=== PATIENT | male | born 1940 ===

== ENCOUNTER 2017-10-19 17:47 | Inpatient (IN) | payer MEDICARE, MEDICAID ==
[2017-10-19 17:53] VITALS: BMI 34.2
[2017-10-19] MEDS ORDERED: Iodixanol 320 MG/ML 100 ML BOTTLE IV ONE (18:02)
[2017-10-19 18:19] LABS: BASO % 0.3 % (0.0-2.0); EOS # 0.2 K/uL (0.0-0.7); EOS % 3.5 % (0.0-4.0); LYMPH # 1.4 K/uL (1.0-4.3); LYMPH % 21.4 % (20.0-40.0); MEAN CELL VOLUME 96.9 fL (80.0-94.0); MEAN CORPUSCULAR HEMOGLOBIN 33.4 pg (27.0-31.0); MEAN CORPUSCULAR HGB CONC 34.5 g/dL (33.0-37.0); MEAN PLATELET VOLUME 6.6 fL (7.2-11.7); MONO # 0.8 K/uL (0.0-0.8); MONO % 11.8 % (0.0-10.0); NRBC % 0.1 % (0.0-2.0); RBC 4.18 Mil/uL (4.40-5.90); RED CELL DISTRIBUTION WIDTH 14.8 % (11.5-14.5); WHITE BLOOD COUNT 6.4 K/uL (4.8-10.8)
[2017-10-19 18:26] LABS: INR 1.4
[2017-10-19 18:27] LABS: PROTHROMBIN TIME 14.9 SECONDS (9.7-12.2)
[2017-10-19 18:33] LABS: ALBUMIN 3.8 g/dL (3.5-5.0); ALT/SGPT 7 U/L (21-72); AST/SGOT 16 U/L (17-59); BLOOD UREA NITROGEN 13 mg/dL (9-20); CALCIUM 8.9 mg/dl (8.6-10.4); GFR AFRICAN-AMERICAN > 60; GFR NON-AFRICAN AMERICAN > 60; HDL CHOLESTEROL 34 mg/dL (30-70)
--- NOTE | 2017-10-19 18:38 | C.PDOC ---
History Of Present Illness 77 y/o male brought to ER from [facility] for declining mental status. Patient had left arm weakness a few hours ago. Of note, HPI is limited due to patient's clinical condition. Time Seen by Provider: 10/19/17 17:54 Chief Complaint (Nursing): Weakness/Neurological Deficit History Per: Patient History/Exam Limitations: clinical condition Onset/Duration Of Symptoms: Hrs Current Symptoms Are (Timing): Still Present Severity: Moderate Past Medical History Reviewed: Historical Data, Nursing Documentation, Vital Signs Vital Signs: Last Vital Signs Temp 97.5 F L 10/21/17 07:35 Pulse 60 10/21/17 07:35 Resp 20 10/21/17 07:35 BP 150/65 10/21/17 07:35 Pulse Ox 100 10/21/17 07:35 - Medical History PMH: Asthma, HIV, HTN Surgical History: No Surg Hx Family History: States: No Known Family Hx - Social History Hx Alcohol Use: No Hx Substance Use: No - Immunization History Hx Tetanus Toxoid Vaccination: No (unknown) Hx Influenza Vaccination: No (unknown) Hx Pneumococcal Vaccination: No (unknown) Review Of Systems Review Of Systems: ROS cannot be obtained secondary to pt's inabilty to answer questions. Physical Exam - Physical Exam Appears: No Acute Distress Skin: Normal Color, Warm, Dry Head: Atraumatic, Normacephalic Eye(s): bilateral: Other (pinpoint pupils) Nose: Normal Oral Mucosa: Moist Neck: Supple Chest: Symmetrical Cardiovascular: Rhythm Regular Respiratory: Normal Breath Sounds, No Rales, No Rhonchi, No Wheezing Neurological/Psych: Other (bilateral arms- floppy, moving bilateral legs without purposeful intention) ED Course And Treatment - Laboratory Results Result Diagrams: 10/19/17 18:16 10/19/17 18:16 O2 Sat by Pulse Oximetry: 96 (RA) Pulse Ox Interpretation: Normal - CT Scan/US CT-Head Other Rad Studies (CT/US): Read By Radiologist, Radiology Report Reviewed CT/US Interpretation: IMPRESSION: Questionable acute/ subacute right parietal operculum infarct. Extensive chronic white matter and basal nuclei ischemic disease. Hyperdense lesion in the left posterior temporoparietal region within and/or abutting the posterior margin of the sylvian fissure. Rule out cavernoma. Partially thrombosed aneurysm in this location would be unlikely. . Followup pre and post-contrast MRI of the brain recommended. Note that these findings were discussed with Dr. Sarmiento at approximately 6 20 p.m. with written down and read back verification. Moderate to significant volume loss. Progress Note: Code Stroke called at 16:45. Labs, UA, CXR, and CT- Head ordered. Disposition Doctor Will See Patient In The: Hospital Counseled Patient/Family Regarding: Studies Performed, Diagnosis - Disposition Disposition: HOSPITALIZED Disposition Time: 20:00 Condition: FAIR - Clinical Impression Clinical Impression: Change in mental state - Scribe Statement The provider has reviewed the documentation as recorded by the Scribe Yessica Hodge Provider Attestation: All medical record entries made by the Scribe were at my direction and personally dictated by me. I have reviewed the chart and agree that the record accurately reflects my personal performance of the history, physical exam, medical decision making, and the department course for this patient. I have also personally directed, reviewed, and agree with the discharge instructions and disposition.
--- NOTE | 2017-10-19 18:39 | CT ---
PROCEDURE: CT HEAD WITHOUT CONTRAST. HISTORY: Code Stroke COMPARISON: No prior study available for comparison TECHNIQUE: Axial computed tomography images were obtained through the head/brain without intravenous contrast. Radiation dose: Total exam DLP = 1372.11 mGy-cm. This CT exam was performed using one or more of the following dose reduction techniques: Automated exposure control, adjustment of the mA and/or kV according to patient size, and/or use of iterative reconstruction technique. . FINDINGS: HEMORRHAGE: There is a rounded approximately 14.8 mm x 12 mm hyperdense lesion located in the posterior aspect of the left sylvian fissure which exhibits and small focal area of lower attenuation along its anterior border. Hounsfield units along the more dense component 170s and along the anterior lower attenuation component in the mid 60s. This lesion is of uncertain etiology. Rule out cavernoma with associated microcalcifications excluded. Partially thrombosed aneurysm would be unlikely in this location No significant surrounding edema or mass effect. Recommend pre and post-contrast MRI of the brain for further evaluation. . Note made of a smaller somewhat angular more discrete classic calcification in the right sylvian fissure. BRAIN: There appears to be an acute infarct in the right frontal operculum region extending superiorly and to the subcortical white matter near the vertex. Additionally, moderate to significant diffuse/ confluent chronic white matter ischemic changes are present. . Scattered chronic bilateral basal nuclei lacunar type infarcts also present. . Moderate to significant generalized volume loss. VENTRICLES: No obstructive hydrocephalus. CALVARIUM: Calvarium intact. PARANASAL SINUSES: Unremarkable as visualized. No significant inflammatory changes. MASTOID AIR CELLS: Unremarkable as visualized. No inflammatory changes. OTHER FINDINGS: Changes of bilateral cataract surgery. IMPRESSION: Questionable acute/ subacute right parietal operculum infarct. Extensive chronic white matter and basal nuclei ischemic disease. Hyperdense lesion in the left posterior temporoparietal region within and/or abutting the posterior margin of the sylvian fissure. Rule out cavernoma. Partially thrombosed aneurysm in this location would be unlikely. . Followup pre and post-contrast MRI of the brain recommended. Note that these findings were discussed with Dr. Sarmiento at approximately 6 20 p.m. with written down and read back verification. Moderate to significant volume loss.
[2017-10-19 18:43] LABS: LDL CHOLESTEROL 134 mg/dL (0-129)
[2017-10-19] MEDS: Sodium Chloride 0.9% 1,000 ML IV SCH (18:53)
--- NOTE | 2017-10-19 18:54 | C.PDOC ---
History Of Present Illness 77 y/o male brought to ER from [facility] for declining mental status. Patient had left arm weakness a few hours ago. Of note, HPI is limited due to patient's clinical condition. Time Seen by Provider: 10/19/17 17:54 Chief Complaint (Nursing): Weakness/Neurological Deficit History Per: Patient History/Exam Limitations: clinical condition Onset/Duration Of Symptoms: Hrs Current Symptoms Are (Timing): Still Present Severity: Moderate Past Medical History Reviewed: Historical Data, Nursing Documentation, Vital Signs Vital Signs: Last Vital Signs Temp 97.5 F L 10/21/17 07:35 Pulse 60 10/21/17 07:35 Resp 20 10/21/17 07:35 BP 150/65 10/21/17 07:35 Pulse Ox 96 10/21/17 18:45 - Medical History PMH: Asthma, HIV, HTN Surgical History: No Surg Hx Family History: States: No Known Family Hx - Social History Hx Alcohol Use: No Hx Substance Use: No - Immunization History Hx Tetanus Toxoid Vaccination: No (unknown) Hx Influenza Vaccination: No (unknown) Hx Pneumococcal Vaccination: No (unknown) Review Of Systems Review Of Systems: ROS cannot be obtained secondary to pt's inabilty to answer questions. Physical Exam - Physical Exam Appears: No Acute Distress Skin: Normal Color, Warm, Dry Head: Atraumatic, Normacephalic, Other (no facial droop) Eye(s): bilateral: Other (pinpoint pupils) Nose: Normal Oral Mucosa: Moist Neck: Supple Chest: Symmetrical Cardiovascular: Rhythm Regular Respiratory: Normal Breath Sounds, No Rales, No Rhonchi, No Wheezing Neurological/Psych: Other (bilateral arms- floppy, bilateral legs moving without purposeful intention) ED Course And Treatment - Laboratory Results Result Diagrams: 10/19/17 18:16 10/19/17 18:16 ECG: Interpreted By Me ECG Rhythm: V Paced ECG Interpretation: Normal Rate From EC O2 Sat by Pulse Oximetry: 96 Pulse Ox Interpretation: Normal - Radiology CXR: Interpreted by Me CXR Interpretation: Yes: No Acute Disease - Other Rad CXR X-Ray: Viewed By Me, Read By Radiologist Interpretation: HISTORY: Code Stroke. COMPARISON: No prior. FINDINGS: LUNGS : No active pulmonary disease. PLEURA: No significant pleural effusion identified, no pneumothorax apparent. CARDIOVASCULAR: Cardiomegaly. No evidence of acute, significant cardiovascular disease. Position/ configuration of pacemaker\AICD device: Satisfactory. OSSEOUS STRUCTURES: No significant abnormalities. VISUALIZED UPPER ABDOMEN: Normal. OTHER FINDINGS: None. IMPRESSION: No active disease. - CT Scan/US CT-Head Other Rad Studies (CT/US): Read By Radiologist, Radiology Report Reviewed CT/US Interpretation: IMPRESSION: Questionable acute/ subacute right parietal operculum infarct. Extensive chronic white matter and basal nuclei ischemic disease. Hyperdense lesion in the left posterior temporoparietal region within and/or abutting the posterior margin of the sylvian fissure. Rule out cavernoma. Partially thrombosed aneurysm in this location would be unlikely. . Followup pre and post-contrast MRI of the brain recommended. Note that these findings were discussed with Dr. Sarmiento at approximately 6 20 p.m. with written down and read back verification. Moderate to significant volume loss. Progress Note: Code Stroke called at 16:45. Labs, UA, CXR, and CT- Head ordered. 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 NIHSS Stroke Scale 2 - Date/Time Evaluation Performed Date Performed: 10/19/17 Time Performed: 17:45 When Was NIHSS Performed: Code Stroke - How Severe is the Stroke Level of Consciousness: 2=Obtunded LOC to Questions: 2=Neither correct LOC to commands: 2=Neither correct Visual: 0=No visual loss Facial: 0=Normal Motor Arm - Left: 4=No movement Motor Arm - Right: 2=Falls before 10 sec Motor Leg - Left: 2=Falls before 5 sec Motor Leg - Right: 0=No drift Limb Ataxia: 0=Absent Sensory: 0=Normal Best Language: 3=Mute Dysarthia: 2=Severe, near unintelligible or worse Extinction & Inattention (Neglect): 0=Normal, no object Severity Of Stroke: 16-20 = Moderate/Severe Stroke rTPA Inclusion/Exclusion - Refusal of Treatment Patient Refused Treatment: No - Inclusion Criteria for Altepase Patient is 18 years or Older: Yes The Clinical Diagnosis of Ischemic Stroke That is Causing a Potentially Disabling Neurological Deficit: Yes Time of Onset is Well Established to be Less Than 270 Minute Before Treatment Would Begin: No Risk/Benefit Discussed With Patient/Family Member Present: No - Exclusion Criteria for Altepase Uncontrolled Hypertension at Time of Treatment (Systolic BP above 185 or Diastolic BP above 110 mmHg): No Known Bleeding Diathesis Including but Not Limited to: Platelets Below 100,000/ mm,PTT Above 40 sec After Heparin Use, Current Use of Oral Anitcoagulant With INR Greater Than 1.7 or PT Greater Than 15 secs: No Evidence of Major Acute Infarct With Signs Greater Than 1/3 MCA Territory: No Suspicion of Subarachnoid Hemorrhage on Pretreatment Evaluation Even if CT Head Negative For Hemorrhage: No - Warning to TPA With Conditions Condition: Rapid Improvement, Age Greater Than 75 years Disposition Doctor Will See Patient In The: Hospital Counseled Patient/Family Regarding: Studies Performed, Diagnosis - Disposition Disposition: HOSPITALIZED Disposition Time: 19:05 Condition: FAIR - POA Core Measure Indicators: Code Stroke - Clinical Impression Clinical Impression: Change in mental state
--- NOTE | 2017-10-19 18:55 | RAD ---
HISTORY: Code Stroke COMPARISON: No prior. FINDINGS: LUNGS: No active pulmonary disease. PLEURA: No significant pleural effusion identified, no pneumothorax apparent. CARDIOVASCULAR: Cardiomegaly. No evidence of acute, significant cardiovascular disease. Position/ configuration of pacemaker Satisfactory. OSSEOUS STRUCTURES: No significant abnormalities. VISUALIZED UPPER ABDOMEN: Normal. OTHER FINDINGS: None. IMPRESSION: No active disease.
--- NOTE | 2017-10-19 19:02 | CT ---
PROCEDURE: CT Angiography of the neck and brain 10/19/2017 HISTORY: Change of MS, ? L arm weak COMPARISON: Comparison made with noncontrast CT scan brain obtained earlier same day. TECHNIQUE: Contiguous axial images of the neck and brain were obtained from the level of the skull-base to the superior mediastinum in the arteriographic phase of enhancement. Coronal and sagittal reformats or also generated. IV contrast dose: 100 cc Visipaque 320 Radiation Dose - DLP: 587.02 mGy-cm This CT exam was performed using one or more of the following dose reduction techniques: Automated exposure control, adjustment of the mA and/or kV according to patient size, and/or use of iterative reconstruction technique. FINDINGS: There are partially calcified atherosclerotic plaque changes along the aortic arch as well as the origins of the great vessels. There is a three-vessel arch. Apparent stent graft within the proximal left subclavian artery. There also partially calcified atherosclerotic plaque changes seen arising from the origins of the great vessels. . Both common carotid arteries are patent. Fairly significant atherosclerotic plaque changes both carotid bifurcations right greater than left with significant stenosis some on the right side and moderate to significant stenosis on the left. Follow-up carotid Doppler could be performed. The internal carotid arteries including the petrous cavernous and supraclinoid segments are patent though there are some minor partially calcified atherosclerotic plaque changes seen along both cavernous carotid arteries. The vertebral arteries are patent throughout left-sided which is slightly larger in caliber/ more dominant than the right. The major branches of the [place] are patent without evidence of large aneurysm nor vascular malformation. The distal anterior middle as well as posterior cerebral artery branches are symmetric. The previously noted hyperdense lesion in the left temporoparietal watershed zone is again noted . Followup pre and post-contrast MRI of the brain recommended. IMPRESSION: Significant stenosis right carotid bifurcation/ internal carotid artery and moderate to significant stenosis left carotid bifurcation/ proximal internal carotid artery. No evidence of occlusion or dissection. No evidence of large aneurysm nor vascular malformation.
[2017-10-19] MEDS ORDERED: Albuterol-Ipratrop 3 mg / 0.5 (3 ml) UD IH SCH (20:45)
[2017-10-19] MEDS ORDERED: Tears Naturale Forte (15ml) OU PRN (21:15)
[2017-10-20] MEDS: Albuterol-Ipratrop 3 mg / 0.5 (3 ml) UD IH SCH ×5 (01:16→20:24)
[2017-10-20 07:42] LABS: SQUAMOUS EPITHIAL < 1 /hpf (0-5); URINE BILIRUBIN NEGATIVE (NEGATIVE); URINE BLOOD NEGATIVE (NEGATIVE); URINE CLARITY Clear (Clear); URINE COLOR Yellow (YELLOW); URINE GLUCOSE (UA) NORMAL (Normal); URINE LEUKOCYTE ESTERASE NEG Leu/uL (Negative); URINE PROTEIN NEGATIVE (NEGATIVE); URINE UROBILINOGEN NORMAL mg/dL (0.2-1.0)
[2017-10-20] MEDS: Sodium Chloride 0.9% 1,000 ML IV SCH ×2 (08:58→14:36)
--- NOTE | 2017-10-20 12:42 | CARD ---
APPROVED REPORT EKG Measurement Heart [id number] <Conclusion> Ventricular-paced rhythm Abnormal ECG
[2017-10-20] MEDS: Budesonide 0.5 mg/2 ml Inhal Susp UD IH SCH ×2 (13:25→20:24)
--- NOTE | 2017-10-20 17:12 | CT ---
PROCEDURE: CT HEAD WITHOUT CONTRAST. HISTORY: repeat; infarct seen on ct head 10/19/17 COMPARISON: None available. TECHNIQUE: Axial computed tomography images were obtained through the head/brain without intravenous contrast. Radiation dose: Total exam DLP = 2503.85 mGy-cm. This CT exam was performed using one or more of the following dose reduction techniques: Automated exposure control, adjustment of the mA and/or kV according to patient size, and/or use of iterative reconstruction technique. FINDINGS: HEMORRHAGE: No intracranial hemorrhage. BRAIN: No intracranial mass. There is a dense rounded calcification adjacent to the atrium of left lateral ventricle unchanged from prior examination. There is a subacute right frontal infarct, slightly diminished in attenuation compared to the prior examination. No evidence of acute hemorrhage. There is a small cortical calcification in the region of the infarcted cerebrum. There is no other acute infarct appreciated. Small old bilateral basal ganglia lacunar infarcts are noted. There is moderate chronic periventricular and deep white matter ischemic change. Old right thalamic lacunar infarcts are noted. Small old left cerebellar hemispheric lacunar infarct. VENTRICLES: Unremarkable. No hydrocephalus. CALVARIUM: Unremarkable. PARANASAL SINUSES: Unremarkable as visualized. No significant inflammatory changes. MASTOID AIR CELLS: Unremarkable as visualized. No inflammatory changes. OTHER FINDINGS: None. IMPRESSION: Subacute right frontal infarct in the MCA territory. Old bilateral basal ganglia, splenic and left cerebellar hemispheric lacunar infarcts. Moderate chronic white matter ischemic change. Dense rounded calcification adjacent to the atrium of the left lateral ventricle of uncertain significance. No acute intracranial hemorrhage.
[2017-10-20] MEDS ORDERED: RALTEGRAVIR POTASSIUM 400 MG PO SCH (18:00)
--- NOTE | 2017-10-20 18:36 | CARD ---
APPROVED REPORT EXAM: Two-dimensional and M-mode echocardiogram with Doppler and color Doppler. INDICATION CVA/TIA Acute Stroke/ HIV RISK FACTORS Hypertension 2D DIMENSIONS IVSd1.1 (0.7-1.1cm)LVDd4.6 (3.9-5.9cm) LVOT Diameter2.3 (1.8-2.4cm)PWd1.3 (0.7-1.1cm) LVDs3.1 (2.5-4.0cm)FS (%) 32.4 % LVEF (%)60.7 (>50%) M-Mode DIMENSIONS Left Atrium (MM)5.30 (2.5-4.0cm)Aortic Root3.87 (2.2-3.7cm) Aortic Cusp Exc.0.67 (1.5-2.0cm) Aortic Valve AoV Peak Amrzesqm380.0cm/sAoV VTI63.8cmAO Peak GR.31mmHg LVOT Peak Xsxngcgb86.0cm/sLVOT VTI20.03cmAO Mean GR.20mmHg DOUG (VMAX)1.69am3OMX (VTI)1.30cm2 Mitral Valve MV E Avlvtlxw904.2cm/sE/A ratio0.0 TDI E/Lateral E'0.0E/Medial E'0.0 Tricuspid Valve TR Peak Xzywknay423jz/sTR Peak Gr.48bkMdWOJP25nhKb LEFT VENTRICLE The left ventricle is normal size. There is borderline concentric left ventricular hypertrophy. Left ventricle systolic function is normal. The Ejection Fraction is 65-70%. There is normal LV segmental wall motion. A Fib There is no ventricular septal defect visualized. RIGHT VENTRICLE The right ventricle is normal size. The right ventricular systolic function is normal. ATRIA The left atrium is mildly dilated. The right atrium is moderately dilated. AORTIC VALVE The aortic valve is moderately to severely sclerotic. The aortic valve is tri-cuspid. No aortic regurgitation is present. There is mild to moderate valvular aortic stenosis. Calculated aortic valve area is 1.3 cm2 with maximum pressure gradient of 36 mmHg MITRAL VALVE Mitral annular calcification is mild. There is no evidence of mitral valve prolapse. Mitral regurgitation is trace. TRICUSPID VALVE The tricuspid valve is normal in structure. There is trace to mild tricuspid regurgitation. Right ventricular systolic pressure is estimated at 30-40 mmHg. There is mild pulmonary hypertension. PULMONIC VALVE The pulmonic valve is not well visualized. There is trace pulmonic valvular regurgitation. GREAT VESSELS The aortic root is normal in size. The ascending aorta is normal in size. The IVC is dilated. PERICARDIAL EFFUSION There is no pericardial effusion. <Conclusion> There is borderline concentric left ventricular hypertrophy. Left ventricle systolic function is normal. The Ejection Fraction is 65-70%. There is mild to moderate valvular aortic stenosis. There is mild pulmonary hypertension.
--- NOTE | 2017-10-20 19:49 | CP.PCM.CON ---
History of Present Illness - History of Present Illness History of Present Illness: Mr. Aj is a 77-year-old left-handed man with a past medical history of HTN, CHF, pacemaker, DM, who is a half-way patient, and was doing well the previous night, but was found in the morning to be lethargic, confused and had some left side weakness. He was later noted by his son and daughter to be weaker on the left and non-verbal. He was brought to the ED and left side weakness and aphasia. However, he was well outside the 4.5 hour time window for IV tPA. CT of the head without contrast showed a right frontal lobe hypodensity consistent with a subacute infarct (watershed zone). CTA of the head/neck showed bilateral ICA stenosis, but more severe on the right side. Today, the patient does move his left leg, but there is not much movement of the left arm, he is dysarthric and aphasic with an NIHSS of 14. Review of Systems - Review of Systems All systems: reviewed and no additional remarkable complaints except Past Patient History - Past Medical History & Family History Past Medical History?: Yes - Past Social History Smoking Status: Never Smoked - CARDIAC Hx Hypertension: Yes - PULMONARY Hx Asthma: Yes - NEUROLOGICAL Hx Neurological Disorder: Yes Hx Transient Ischemic Attacks (TIA): Yes - HEENT Hx HEENT Problems: No - RENAL Hx Chronic Kidney Disease: No - ENDOCRINE/METABOLIC Hx Endocrine Disorders: Yes Hx Diabetes Mellitus Type 2: Yes - HEMATOLOGICAL/ONCOLOGICAL Hx Blood Disorders: Yes Hx Human Immunodeficiency Virus (HIV): Yes - INTEGUMENTARY Hx Dermatological Problems: No - MUSCULOSKELETAL/RHEUMATOLOGICAL Hx Musculoskeletal Disorders: No Hx Falls: No - GASTROINTESTINAL Hx Gastrointestinal Disorders: No - GENITOURINARY/GYNECOLOGICAL Hx Genitourinary Disorders: No - PSYCHIATRIC Hx Psychophysiologic Disorder: No Hx Substance Use: No - ANESTHESIA Hx Anesthesia: No Meds Allergies/Adverse Reactions: Allergies Allergy/AdvReac Type Severity Reaction Status Date / Time No Known Allergies Allergy Verified 10/19/17 17:52 - Medications Medications: Current Medications Albuterol/Ipratropium (Duoneb 3 Mg/0.5 Mg (3 Ml) Ud) 3 ml IH RQ6 [facility] Last Admin: 10/20/17 13:25 Dose: 3 ml Aspirin (Aspirin Supp) 300 mg MO DAILY [facility] Last Admin: 10/20/17 10:23 Dose: 300 mg Budesonide (Pulmicort Respules) 0.5 mg IH RBID [facility] Last Admin: 10/20/17 13:25 Dose: 0.5 mg Docusate Sodium (Colace) 100 mg PO BID [facility] Last Admin: 10/20/17 19:00 Dose: 100 mg Home Med (Emtricitabine/Tenofov Alafenam [Descovy 200-25 Mg Tablet]) 1 each PO DAILY [facility] Home Med (Raltegravir Potassium [Isentress]) 400 mg PO BID [facility] Home Med (Rilpivirine Hcl [Edurant]) 25 mg PO DAILY [facility] Hypromellose (Tears Naturale Forte) 0 ml OU Q6H PRN Sodium Chloride (Sodium Chloride 0.9%) 1,000 mls @ 100 mls/hr IV .Q10H [facility] Last Admin: 10/20/17 14:36 Dose: Not Given Pantoprazole Sodium (Protonix Inj) 40 mg IVP DAILY [facility] Last Admin: 10/20/17 10:22 Dose: 40 mg Pneumococcal Polyvalent Vaccine (Pneumovax 23 Vaccine) 0.5 ml IM .ONCE ONE Stop: 10/21/17 10:01 Physical Exam - Constitutional Appears: Confused - Neurological Exam Neurological exam: Alert, Altered, CN II-XII Intact Additional comments: Aphasic and dysarthric. CN 2-12 normal, Left facial droop, left side weakness with LUE of 2/5 and LLE 3/5, sensation is decreased on the left side as compared with the right. Reflexes are brisk on the left with upgoing plantar response. NIHSS = 14 Results - Vital Signs Recent Vital Signs: Last Vital Signs Temp 97.7 F 10/20/17 15:07 Pulse 60 10/20/17 15:07 Resp 20 10/20/17 15:07 BP 126/66 10/20/17 15:07 Pulse Ox 100 10/20/17 15:07 - Labs Result Diagrams: 10/19/17 18:16 10/19/17 18:16 Labs: Laboratory Results - last 24 hr 10/19/17 10/19/17 10/20/17 07:22 22:33 06:36 POC Glucose (mg/dL) 134 H 133 H Vitamin B12 25-OH Vitamin D Total Urine Color Yellow Urine Clarity Clear Urine pH 6.0 Ur Specific [place] 1.031 H Urine Protein Negative Urine Glucose (UA) Normal Urine Ketones 1+ H Urine Blood Negative Urine Nitrate Negative Urine Bilirubin Negative Urine Urobilinogen Normal Ur Leukocyte Esterase Neg Urine WBC (Auto) 1 Urine RBC (Auto) < 1 Ur Squamous Epith Cells < 1 10/20/17 10/20/17 10/20/17 11:24 11:24 19:26 POC Glucose (mg/dL) 211 H Vitamin B12 403 25-OH Vitamin D Total 18.9 L Urine Color Urine Clarity Urine pH Ur Specific [place] Urine Protein Urine Glucose (UA) Urine Ketones Urine Blood Urine Nitrate Urine Bilirubin Urine Urobilinogen Ur Leukocyte Esterase Urine WBC (Auto) Urine RBC (Auto) Ur Squamous Epith Cells Assessment & Plan (1) Ischemic stroke Assessment and Plan: Likely due to dehydration and severe PADMINI stenosis. I recommend the followin. Telemetry 2. Carotid doppler ultrasound, will obtain neurointerventional consult for ALLIE. 3. Echocardiogram 4. Fluids with NS at 100 mL/hr 5. Aspirin 300 mg MO daily, if unable to swallow Apirin 81 mg and Plavix 75 mg daily. 6. Lipitor 80 mg daily 7. PT/OT/ST eval and treatment 8. DVT Px 9. Case management consult Thank you for this consultation. Status: Acute Priority: High
[2017-10-21] MEDS: Albuterol-Ipratrop 3 mg / 0.5 (3 ml) UD IH SCH ×4 (01:22→19:51)
[2017-10-21 07:38] LABS: IRON 24 ug/dL (49-181)
[2017-10-21] MEDS: Budesonide 0.5 mg/2 ml Inhal Susp UD IH SCH ×2 (07:47→19:51)
[2017-10-21 07:51] LABS: % IRON SATURATION 11 (20-55); TOTAL IRON BINDING CAPACITY 223 ug/dL (250-450)
[2017-10-21] MEDS ORDERED: Pneumococcal 23-Valent Vaccine IM ONE (10:00)
[2017-10-21 10:04] LABS: FOLATE 6.9 ng/mL
--- NOTE | 2017-10-21 10:52 | VASCLAB ---
PROCEDURE: HISTORY: LEFT SIDED WEAKNESS COMPARISON: None available. TECHNIQUE: Grayscale and duplex Doppler evaluation of the cervical carotid and vertebral arteries were performed. The common carotid, carotid bifurcations and cervical Internal Carotid Artery (ICA) and proximal External Carotid Artery (ECA) were evaluated. The vertebral arteries were evaluated for gross patency and flow direction. Report prepared by IRENE Patel FINDINGS: RIGHT CAROTID ARTERIES: 1. Common Carotid Artery: Calcific plaque formation of the right common carotid artery. Maximum Peak Systolic velocity: 100 cm/sec: End-diastolic velocity 8 cm/sec. 2. Carotid Bifurcation: Calcific plaque formation. Maximum Peak Systolic velocity: 82 cm/sec: End-diastolic velocity 11 cm/sec. 3. Internal Carotid Artery: Moderate plaque formation of the right proximal ICA which results in hemodynamically significant stenosis. Plaque description: Calcific 3.1. Proximal Segment: Peak systolic velocity 278 cm/sec: End-diastolic velocity 61 cm/sec - % stenosis 60-70% 3.2. Middle Segment: Peak systolic velocity 111 cm/sec: End-diastolic velocity 15 cm/sec - % stenosis 0-15% 3.3. Distal Segment: Peak systolic velocity 67 cm/sec: End-diastolic velocity 12 cm/sec - % stenosis 0-15% 4. External Carotid Artery: No significant focal plaque formation. Peak systolic velocity 123 cm/sec 5. ICA/CCA Ratio: 2.8 LEFT CAROTID ARTERIES: 1. Common Carotid Artery: 2. Carotid Bifurcation: 3. Internal Carotid Artery: 3.1. Proximal Segment: 3.2. Middle Segment: 3.3. Distal Segment: 4. External Carotid Artery: 5. ICA/CCA Ratio: VERTEBRAL ARTERIES: 1. Right Vertebral Artery: Monophasic 2. Left Vertebral Artery: OTHER FINDINGS: IMPRESSION: RIGHT: 60-70% stenosis at the right proximal internal carotid artery. LEFT: Unable to examine. Limited exam due to patient status. Findings were reported by the computer engineering technologist, juanito Davalos 12:28 p.mSita
[2017-10-21] MEDS: Sodium Chloride 0.9% 1,000 ML IV SCH ×2 (11:08→21:54)
--- NOTE | 2017-10-21 11:34 | HP ---
The patient was seen and examined on the bedside on 10/20/2017. CHIEF COMPLAINT: Left arm weakness, altered mental status. HISTORY OF PRESENT ILLNESS: Mr. Candelario Aj is a 77-year-old male, resident of the skilled nursing, brought to the ER from the skilled nursing for declining mental status. The patient had left upper extremity weakness. No fever. No chills. No nausea, vomiting, or diarrhea. The patient is a very poor historian. He is complaining about weakness and neurological deficit. No hematuria. No hematochezia. PAST MEDICAL HISTORY: Asthma, hypertension, and HIV. FAMILY HISTORY: Father and mother, noncontributory. HABITS: No smoking. No drugs. No ethanol. ALLERGIES: THE PATIENT IS NOT ALLERGIC TO ANY MEDICATIONS. REVIEW OF SYSTEMS: The patient was seen and examined at the bedside. Daughter was seen at bedside also. Both the father and daughter both are poor historians. The patient was opening eyes on command. No fever. No chills. No nausea, vomiting, or diarrhea. PHYSICAL EXAMINATION: VITAL SIGNS: Temperature 97.7, pulse 60, blood pressure 122/66, and respiratory rate 20. HEENT: Head: Normocephalic and atraumatic. Eyes closed. Nose patent. Mucous membranes moist. NECK: Supple. No carotid bruits. No JVD or thyromegaly. CHEST: Bilaterally symmetrical. HEART: S1 and S2 positive. LUNGS: Clear to auscultation. ABDOMEN: Soft. Bowel sounds positive. No organomegaly. EXTREMITIES: No edema, no cyanosis. NEUROLOGICAL: The patient is sleepy and arousable. LABORATORY DATA: White blood cells 6.4, hemoglobin 14, hematocrit 40.5, and platelets 340. Glucose 187, 211, vitamin D is 18.9, sodium 140, potassium 4.2, BUN 13, and creatinine 1. AST 16, ALT is 7. ASSESSMENT AND PLAN: Mr. Candelario Aj is a 77-year-old male with hyperglycemia, hypercholesterolemia, ketone urea, seen by Dr. Matt Menendez, neurologist with history of hypertension, congestive heart failure, pacemaker. [facility] resident. According to Dr. Menendez, the patient has ischemic stroke, likely due to dehydration, and severe right internal carotid artery stenosis. We are admitting the patient on the telemetry, carotid ultrasound. We will get Neurology intervention and consult. Echocardiograph also reviewed, aspirin, Lipitor, physical therapy, discussion done with the patient's daughter and the patient's nurse. CAT scan of the head is done and reviewed by me. Echocardiography done. Carotid Doppler of the neck is done, but those are pending. Head and neck CTA done. Meanwhile, we will continue present treatment and repeat labs. Natali Garcia MD
--- NOTE | 2017-10-21 14:15 | CP.PCM.CON ---
History of Present Illness - History of Present Illness History of Present Illness: INFECTIOUS DISEASE CONSULT; HPI; . 77-year-old male with history of HIV, diabetes mellitus, history of old CVA, CHF, AICD, was a custodial resident and who was brought in because it was found to be lethargic and confused with some left-sided weakness noted by the family. family also noticed that the patient became nonverbal later on. On admission CT of the head without contrast showed a right frontal lobe hypodensity consistent with subacute infarct. Also CTA of the head and neck showed bilateral ICA stenosis but more severe on the right side. Patient unable to give any details of the history but presently responding to verbal and tactile stimulation and obeying simple commands with left-sided upper extremity weakness and left-sided droop and dysarthria. Patient is presently on HAART-including DESCOVY (AVF223SZ/25MG TENOFOVIR ) 1 tablet once a day, RILPIVRINE 25 mg OD daily and Isentress 400 mg by mouth twice a day. Infectious disease consultation requested by PMD as patient HIV positive AND WITH A NEW STROKE. ALSO PATIENT'S HIV MEDICATIONS NOT IN PHARMACY. NO OTHER HISTORY AVAILABLE AT THIS TIME. PMH: Asthma, HIV, HTN Surgical History: No Surg Hx Family History: States: No Known Family Hx - Social History Hx Alcohol Use: No Hx Substance Use: No - Immunization History Hx Tetanus Toxoid Vaccination: No (unknown) Hx Influenza Vaccination: No (unknown) Hx Pneumococcal Vaccination: No (unknown) Review Of Systems Review Of Systems: ROS cannot be obtained secondary to pt's inabilty to answer questions. ALLERGY; NKA. MEDS; REVIEW MARS AND HOME MEDICATIONS. Past Patient History - Past Medical History & Family History Past Medical History?: Yes - Past Social History Smoking Status: Never Smoked - CARDIAC Hx Hypertension: Yes - PULMONARY Hx Asthma: Yes - NEUROLOGICAL Hx Neurological Disorder: Yes Hx Transient Ischemic Attacks (TIA): Yes - HEENT Hx HEENT Problems: No - RENAL Hx Chronic Kidney Disease: No - ENDOCRINE/METABOLIC Hx Endocrine Disorders: Yes Hx Diabetes Mellitus Type 2: Yes - HEMATOLOGICAL/ONCOLOGICAL Hx Blood Disorders: Yes Hx Human Immunodeficiency Virus (HIV): Yes - INTEGUMENTARY Hx Dermatological Problems: No - MUSCULOSKELETAL/RHEUMATOLOGICAL Hx Musculoskeletal Disorders: No Hx Falls: No - GASTROINTESTINAL Hx Gastrointestinal Disorders: No - GENITOURINARY/GYNECOLOGICAL Hx Genitourinary Disorders: No - PSYCHIATRIC Hx Psychophysiologic Disorder: No Hx Substance Use: No - ANESTHESIA Hx Anesthesia: No Meds Allergies/Adverse Reactions: Allergies Allergy/AdvReac Type Severity Reaction Status Date / Time No Known Allergies Allergy Verified 10/19/17 17:52 - Medications Medications: Current Medications Albuterol/Ipratropium (Duoneb 3 Mg/0.5 Mg (3 Ml) Ud) 3 ml IH RQ6 [facility] Last Admin: 10/21/17 13:27 Dose: 3 ml Aspirin (Ecotrin) 81 mg PO DAILY [facility] Last Admin: 10/21/17 12:14 Dose: 81 mg Budesonide (Pulmicort Respules) 0.5 mg IH RBID [facility] Last Admin: 10/21/17 07:47 Dose: 0.5 mg Docusate Sodium (Colace) 100 mg PO BID [facility] Last Admin: 10/21/17 09:38 Dose: 100 mg Home Med (Emtricitabine/Tenofov Alafenam [Descovy 200-25 Mg Tablet]) 1 each PO DAILY [facility] Home Med (Raltegravir Potassium [Isentress]) 400 mg PO BID [facility] Home Med (Rilpivirine Hcl [Edurant]) 25 mg PO DAILY [facility] Home Med (Insulin Aspart [Novolog Flexpen]) 7 unit SC ACHS [facility] Hypromellose (Tears Naturale Forte) 0 ml OU Q6H PRN Sodium Chloride (Sodium Chloride 0.9%) 1,000 mls @ 100 mls/hr IV .Q10H [facility] Last Admin: 10/21/17 11:08 Dose: 100 mls/hr Insulin Aspart (Novolog) 0 unit SC ACHS [facility] PRN Reason: Protocol Pantoprazole Sodium (Protonix Inj) 40 mg IVP DAILY [facility] Last Admin: 10/21/17 09:38 Dose: 40 mg Physical Exam - Constitutional Appears: No Acute Distress - Head Exam Head Exam: NORMAL INSPECTION - Eye Exam Eye Exam: EOMI, PERRL - ENT Exam ENT Exam: Normal Oropharynx - Neck Exam Neck exam: Positive for: Normal Inspection - Respiratory Exam Respiratory Exam: Clear to Auscultation Bilateral - Cardiovascular Exam Cardiovascular Exam: REGULAR RHYTHM, +S1, +S2 - GI/Abdominal Exam GI & Abdominal Exam: Normal Bowel Sounds, Soft. absent: Organomegaly - Extremities Exam Extremities exam: Positive for: pedal pulses present. Negative for: calf tenderness, pedal edema - Neurological Exam Neurological exam: Altered (LEFT UPPER ARM MORE WEAKER LEFT LOWER EXTREMITY. WITHDRAWAL REFLEX PRESENT.) - Psychiatric Exam Psychiatric exam: Homicidal Ideation, Normal Mood - Skin Skin Exam: Normal Color, Warm Results - Vital Signs Recent Vital Signs: Last Vital Signs Temp 97.5 F L 10/21/17 07:35 Pulse 60 10/21/17 07:35 Resp 20 10/21/17 07:35 BP 150/65 10/21/17 07:35 Pulse Ox 100 10/21/17 07:35 - Labs Result Diagrams: 10/19/17 18:16 10/19/17 18:16 Labs: Laboratory Results - last 24 hr 10/20/17 10/20/17 10/21/17 19:26 21:14 06:45 POC Glucose (mg/dL) 211 H 187 H 130 H Hemoglobin A1c Iron TIBC % Saturation Triglycerides Cholesterol LDL Cholesterol Direct HDL Cholesterol Vitamin B12 Folate 10/21/17 10/21/17 10/21/17 07:11 07:11 07:11 POC Glucose (mg/dL) Hemoglobin A1c 6.4 Iron 24 L TIBC 223 L % Saturation 11 L Triglycerides 76 D Cholesterol 164 LDL Cholesterol Direct 118 HDL Cholesterol 31 Vitamin B12 400 Folate 6.9 10/21/17 12:01 POC Glucose (mg/dL) 192 H Hemoglobin A1c Iron TIBC % Saturation Triglycerides Cholesterol LDL Cholesterol Direct HDL Cholesterol Vitamin B12 Folate - Imaging and Cardiology Chest x-ray Status: Report reviewed by me (no active disease.) Assessment & Plan (1) HIV positive Assessment and Plan: patient to continue present antiretroviral therapy. Patient to use his home medications as present combinations not available in pharmacy. Will monitor HIV 1 RNA PCR quantitative levels. Check lymphocyte subset studies with CD4 CD8 ratios. RPR. Cryptococcal antigen. FTA-ABS. WILL DISCUSS WITH FAMILY FURTHER HISTORY. Status: Acute (2) Change in mental state Assessment and Plan: PATIENT UNDERWENT REPEAT CT HEAD TODAY WHICH REVEALED RIGHT FRONTAL SUBACUTE INFARCT mca DISTRIBUTION. OLD BILATERAL BASAL GANGLIA SPLENIC INFARCTS AND LEFT CEREBRAL HEMISPHERE LACUNAR INFARCTS. See full details. Status: Acute (3) Ischemic stroke Assessment and Plan: patient undergoing neurological workup. Continue treatment as per neurology. Status: Acute Priority: High
--- NOTE | 2017-10-21 14:56 | CP.PCM.PN ---
Subjective - Date & Time of Evaluation Date of Evaluation: 10/21/17 Time of Evaluation: 14:54 - Subjective Subjective: Mr. Aj was seen and examined at the bedside. He remains non-verbal, but able to open his eyes with both verbal and tactile stimuli. He is able to follow few simple commands such as hand squeezing, moving bilateral toes, and opening his mouth which is an improvement from yesterday.There is left facial droop. Carotid duplex showed 60-70& stenosis at the PADMINI, echocardiogram showed borderline concentric left ventricular hypertrophy. LV function is normal, EF-65 -70%. There is mild to moderate valvular aortic stenosis, mild pulmonary hypertension. Repeat Ct scan of the head done 10/20 2017 showed subacute right frontal infarct in the MCA territory. Old bilateral basal ganglia, splenic and left cerebellar hemispheric lacunar infarcts. Moderate chronic white matter ischemic changes. Dense rounded calcification adjacent to the atrium of the left lateral ventricle of uncertain significance. No intracranial hemorrhage. There was no untoward events overnight. Objective - Vital Signs/Intake and Output Vital Signs (last 24 hours): Temp Pulse Resp BP Pulse Ox 97.5 F L 60 20 150/65 100 10/21/17 07:35 10/21/17 07:35 10/21/17 07:35 10/21/17 07:35 10/21/17 07:35 Intake and Output: 10/21/17 10/21/17 06:59 18:59 Intake Total 1520 Output Total 1630 Balance -110 - Medications Medications: Current Medications Albuterol/Ipratropium (Duoneb 3 Mg/0.5 Mg (3 Ml) Ud) 3 ml IH RQ6 [facility] Last Admin: 10/21/17 13:27 Dose: 3 ml Aspirin (Ecotrin) 81 mg PO DAILY [facility] Last Admin: 10/21/17 12:14 Dose: 81 mg Budesonide (Pulmicort Respules) 0.5 mg IH RBID [facility] Last Admin: 10/21/17 07:47 Dose: 0.5 mg Clopidogrel Bisulfate (Plavix) 75 mg PO DAILY [facility] Docusate Sodium (Colace) 100 mg PO BID [facility] Last Admin: 10/21/17 09:38 Dose: 100 mg Home Med (Emtricitabine/Tenofov Alafenam [Descovy 200-25 Mg Tablet]) 1 each PO DAILY [facility] Home Med (Raltegravir Potassium [Isentress]) 400 mg PO BID [facility] Home Med (Rilpivirine Hcl [Edurant]) 25 mg PO DAILY [facility] Home Med (Insulin Aspart [Novolog Flexpen]) 7 unit SC ACHS [facility] Hypromellose (Tears Naturale Forte) 0 ml OU Q6H PRN Sodium Chloride (Sodium Chloride 0.9%) 1,000 mls @ 100 mls/hr IV .Q10H [facility] Last Admin: 10/21/17 11:08 Dose: 100 mls/hr Insulin Aspart (Novolog) 0 unit SC ACHS [facility] PRN Reason: Protocol Pantoprazole Sodium (Protonix Inj) 40 mg IVP DAILY [facility] Last Admin: 10/21/17 09:38 Dose: 40 mg Raltegravir (Isentress) 400 mg PO BID [facility] PRN Reason: Protocol Rosuvastatin Calcium (Crestor) 2.5 mg PO HS [facility] - Labs Labs: 10/19/17 18:16 10/19/17 18:16 PT 14.9 SECONDS (9.7-12.2) H 10/19/17 18:16 INR 1.4 10/19/17 18:16 APTT 44 SECONDS (21-34) H 10/19/17 18:16 - Constitutional Appears: No Acute Distress - Head Exam Head Exam: NORMAL INSPECTION - Eye Exam Pupil Exam: PERRL - Neurological Exam Neuro motor strength exam: Left Upper Extremity: 2/1, Right Upper Extremity: 3, Left Lower Extremity: 2/1, Right Lower Extremity: 3 Additional comments: He remains non-verbal, but able to open his eyes with both verbal and tactile stimuli. He is able to follow few simple commands such as hand squeezing, moving bilateral toes, and opening his mouth which is an improvement from yesterday. Assessment and Plan (1) Ischemic stroke Assessment & Plan: Case discussed with Dr. Menendez, continue all current medical, physical, occupational, and speech therapies. Awaiting any recommendations from neurointerventionalist.Recommend head of bed elevated, increase po intake for hydration, blood pressure, and glycemic control. Status: Acute
[2017-10-21] MEDS ORDERED: (Novolog) Insulin Aspart, Recombinant 100 u/ml 10 ml vial SC SCH (16:30)
[2017-10-21] MEDS: (Novolog) Insulin Aspart, Recombinant 100 u/ml 10 ml vial SC SCH ×3 (18:09→22:18)
[2017-10-21] MEDS: Rosuvastatin Calcium 2.5 mg Tab PO SCH (21:38)
[2017-10-21] MEDS: Insulin Detemir 100 units/ml Vial (Levemir) SC SCH ×2 (21:53→22:19)
[2017-10-22] MEDS: Albuterol-Ipratrop 3 mg / 0.5 (3 ml) UD IH SCH ×4 (01:35→20:30)
[2017-10-22 06:38] LABS: HEMOGLOBIN 11.6 g/dL (12.0-18.0); MEAN CORPUSCULAR HEMOGLOBIN 33.8 pg (27.0-31.0); MEAN CORPUSCULAR HGB CONC 34.8 g/dL (33.0-37.0); MEAN PLATELET VOLUME 6.7 fL (7.2-11.7); RBC 3.42 Mil/uL (4.40-5.90); RED CELL DISTRIBUTION WIDTH 14.6 % (11.5-14.5); WHITE BLOOD COUNT 6.1 K/uL (4.8-10.8)
[2017-10-22 07:25] LABS: BLOOD UREA NITROGEN 9 mg/dL (9-20); CALCIUM 8.5 mg/dl (8.6-10.4); GFR AFRICAN-AMERICAN > 60; GFR NON-AFRICAN AMERICAN > 60
[2017-10-22] MEDS: Budesonide 0.5 mg/2 ml Inhal Susp UD IH SCH ×2 (07:36→20:30)
[2017-10-22] MEDS: (Novolog) Insulin Aspart, Recombinant 100 u/ml 10 ml vial SC SCH ×4 (08:17→21:56)
[2017-10-22] MEDS: Sodium Chloride 0.9% 1,000 ML IV SCH ×3 (10:32→21:47)
[2017-10-22] MEDS: Emtricitabine/Tenofov Alafenam [Descovy 200-25 Mg Tablet] PO SCH (10:33)
--- NOTE | 2017-10-22 14:07 | PN ---
DATE: 10/21/2017 SUBJECTIVE: The patient is a 77-year-old male. The patient was seen and examined on bedside on 10/21/2017, looking comfortable, looks a little bit more awake and alert, opens eyes, opens the mouth, follows simple commands. No fever, no chills. No nausea, vomiting or diarrhea. No hematuria or hematochezia. PHYSICAL EXAMINATION: VITAL SIGNS: Temperature 97.5, pulse 60, respiratory rate 20, blood pressure 150/65, pulse oximetry 100%. HEENT: Head: Normocephalic and atraumatic. Eyes: Closed, opens on command. Nose patent. Mucous membranes moist. NECK: Supple. No carotid bruits, JVD, or thyromegaly. CHEST: Bilaterally symmetrical. HEART: S1 and S2 positive. LUNGS: Clear to auscultation. ABDOMEN: Soft. Bowel sounds positive. No organomegaly. EXTREMITIES: No edema, no cyanosis. NEUROLOGIC: The patient is sleepy, arousable. Cannot complete neurological examination. MEDICATIONS: DuoNeb, Ecotrin, Plavix, Colace, HIV home medications, insulin, Protonix. LABORATORY DATA: White blood cells 6.4, hemoglobin 14, hematocrit 40.5, platelets 340. Sodium 140, potassium 4.2, BUN 13, creatinine 1, glucose 128. ASSESSMENT AND PLAN: Mr. Candelario Aj is a 77-year-old male who came with ischemic stroke. Neuro interventionalist and neurologist are on the case. Carotid duplex shows 60% to 70% stenosis of right internal carotid artery and echocardiography showed borderline concentric left ventricular hypertrophy. CT showed subacute right frontal infarct with middle cerebral artery territory, old bilateral basal ganglia, and left cerebral hemispheric lacunar infarction. No intracranial hemorrhage. The patient is human immunodeficiency virus positive. History of asthma, hypertension, automatic implantable cardioverter-defibrillator, retirement resident, was brought because he was found to be lethargic and confused with some left-sided weakness. The patient is on HAART medication. ID is adjusting human immunodeficiency virus medication. We will continue present treatment. Gastrointestinal and deep venous thrombosis prophylaxis. We will follow up. Natali Garcia MD [facility] # [id number] MYRIAM
--- NOTE | 2017-10-22 15:38 | CP.PCM.PCO ---
Physician Communication Note - Physician Communication Note Physician Communication Note: Family meeting tomorrow at 11 am
[2017-10-22] MEDS: Rosuvastatin Calcium 2.5 mg Tab PO SCH (21:46)
[2017-10-22] MEDS: Insulin Detemir 100 units/ml Vial (Levemir) SC SCH (21:55)
--- NOTE | 2017-10-22 23:21 | CP.PCM.PN ---
Subjective - Date & Time of Evaluation Date of Evaluation: 10/22/17 Time of Evaluation: 23:21 - Subjective Subjective: AFEBRILE, NON VERBAL, F/U SIMPLE COMMANDS IN ROMAN[place]. LT. FACIAL DROOP. MILD LT SIDED WEAKNESS. Objective - Vital Signs/Intake and Output Vital Signs (last 24 hours): Temp Pulse Resp BP Pulse Ox 98.1 F 60 20 158/68 H 100 10/22/17 15:06 10/22/17 16:00 10/22/17 15:06 10/22/17 15:06 10/22/17 15:06 Intake and Output: 10/22/17 10/23/17 18:59 06:59 Intake Total 1100 1040 Output Total 400 600 Balance 700 440 - Medications Medications: Current Medications Albuterol/Ipratropium (Duoneb 3 Mg/0.5 Mg (3 Ml) Ud) 3 ml IH RQ6 [facility] Last Admin: 10/22/17 20:30 Dose: 3 ml Aspirin (Ecotrin) 81 mg PO DAILY [facility] Last Admin: 10/22/17 10:31 Dose: 81 mg Budesonide (Pulmicort Respules) 0.5 mg IH RBID [facility] Last Admin: 10/22/17 20:30 Dose: 0.5 mg Clopidogrel Bisulfate (Plavix) 75 mg PO DAILY [facility] Last Admin: 10/22/17 10:31 Dose: 75 mg Docusate Sodium (Colace) 100 mg PO BID [facility] Last Admin: 10/22/17 18:29 Dose: 100 mg Famotidine (Pepcid) 20 mg PO DAILY [facility] Last Admin: 10/22/17 10:31 Dose: 20 mg Home Med (Patient's Own Medication) 1 tab PO DAILY [facility] Last Admin: 10/22/17 10:33 Dose: 1 tab Home Med (Rilpivirine Hcl [Edurant]) 25 mg PO DAILY [facility] Hypromellose (Tears Naturale Forte) 0 ml OU Q6H PRN Insulin Aspart (Novolog) 7 unit SC ACHS [facility] Last Admin: 10/22/17 21:56 Dose: Not Given Insulin Detemir (Levemir) 10 unit SC HS [facility] Last Admin: 10/22/17 21:55 Dose: Not Given Raltegravir (Isentress) 400 mg PO BID [facility] PRN Reason: Protocol Last Admin: 10/22/17 18:29 Dose: 400 mg Rosuvastatin Calcium (Crestor) 2.5 mg PO HS [facility] Last Admin: 10/22/17 21:46 Dose: 2.5 mg - Labs Labs: 10/22/17 06:34 10/22/17 06:34 PT 14.9 SECONDS (9.7-12.2) H 10/19/17 18:16 INR 1.4 10/19/17 18:16 APTT 44 SECONDS (21-34) H 10/19/17 18:16 - Constitutional Appears: No Acute Distress - Head Exam Head Exam: NORMAL INSPECTION - Eye Exam Eye Exam: EOMI, PERRL - ENT Exam ENT Exam: Normal Oropharynx - Neck Exam Neck Exam: Normal Inspection - Respiratory Exam Respiratory Exam: Clear to Ausculation Bilateral - Cardiovascular Exam Cardiovascular Exam: REGULAR RHYTHM, +S1, +S2 - GI/Abdominal Exam GI & Abdominal Exam: Soft, Normal Bowel Sounds - Extremities Exam Extremities Exam: Normal Capillary Refill. absent: Calf Tenderness, Pedal Edema - Neurological Exam Neurological Exam: Awake (LT SIDED WEAKNESS [place]>LLE) - Psychiatric Exam Psychiatric exam: Normal Affect - Skin Skin Exam: Normal Color, Warm Assessment and Plan (1) HIV positive Status: Acute (2) Change in mental state Status: Acute (3) Ischemic stroke Status: Acute
[2017-10-23] MEDS: Albuterol-Ipratrop 3 mg / 0.5 (3 ml) UD IH SCH ×4 (01:20→20:04)
[2017-10-23] MEDS: Sodium Chloride 0.9% 1,000 ML IV SCH (06:08)
[2017-10-23 06:33] LABS: HEMOGLOBIN 12.1 g/dL (12.0-18.0); MEAN CELL VOLUME 96.1 fL (80.0-94.0); MEAN CORPUSCULAR HEMOGLOBIN 33.4 pg (27.0-31.0); MEAN CORPUSCULAR HGB CONC 34.8 g/dL (33.0-37.0); MEAN PLATELET VOLUME 6.5 fL (7.2-11.7); RBC 3.62 Mil/uL (4.40-5.90); RED CELL DISTRIBUTION WIDTH 14.8 % (11.5-14.5); WHITE BLOOD COUNT 5.1 K/uL (4.8-10.8)
[2017-10-23 06:48] LABS: BLOOD UREA NITROGEN 9 mg/dL (9-20); CALCIUM 8.4 mg/dl (8.6-10.4); GFR AFRICAN-AMERICAN > 60; GFR NON-AFRICAN AMERICAN > 60
--- NOTE | 2017-10-23 07:08 | PN ---
DATE: SUBJECTIVE: The patient is a 77-year-old male. The patient was seen and examined at bedside, looking comfortable, responding well, improving slowly. Daughter, nurse, and physical therapy were on the bedside. No nausea, vomiting or diarrhea. No hematuria or hematochezia. The patient is a poor historian, but answering questions by opening his eyes. PHYSICAL EXAMINATION: VITAL SIGNS: Temperature 98.1, pulse 60, respiratory rate 20, blood pressure 158/68, pulse oximetry 100%. HEENT: Head: Normocephalic, atraumatic. Eyes: PERRLA. Extraocular muscles intact. Conjunctivae clear. Nose: Patent. Mucous membranes moist. NECK: Supple. No carotid bruits, JVD, or thyromegaly. CHEST: Bilaterally symmetrical. HEART: S1 and S2 positive. LUNGS: Clear to auscultation. ABDOMEN: Soft. Bowel sounds positive. No organomegaly. EXTREMITIES: No edema, no cyanosis. NEUROLOGICAL: The patient is awake, opens eyes on command and follows simple commands. MEDICATIONS: DuoNeb, aspirin, Pulmicort, Plavix, Colace, Pepcid, and medications for HIV, Taxol. LABORATORY DATA: White blood cells 6.1, hemoglobin 11.2, hematocrit 33.2, platelets 272. Sodium 141, potassium 3.8, BUN 9, creatinine 0.9, glucose 143. ASSESSMENT AND PLAN: Mr. Candelario Aj is a 77-year-old male with anemia, hyperglycemia, human immunodeficiency virus positive, change of mental status, ischemic stroke as per Dr. Haily Pizarro. Seen by neurologist, Dr. Matt Menendez. Discussion done with the patient's daughter. She is waiting for Dr. Matt Menendez for more discussion. Patient needs physical therapy, occupational therapy, and speech therapy. Waiting for recommendation from neurointerventionist. Meanwhile, continue present treatment. Repeat labs. Gastrointestinal and deep venous thrombosis prophylaxis. We will follow up. Natali Garcia MD
[2017-10-23] MEDS: Budesonide 0.5 mg/2 ml Inhal Susp UD IH SCH ×2 (07:31→20:04)
--- NOTE | 2017-10-23 08:05 | CP.PCM.PN ---
Subjective - Date & Time of Evaluation Date of Evaluation: 10/23/17 Time of Evaluation: 08:05 - Subjective Subjective: Mr. Aj was seen and examined at the bedside. He remains non-verbal, but able to open his eyes with both verbal and tactile stimuli. He is able to follow few simple commands such as hand squeezing, moving bilateral toes, and opening his mouth which is an improvement from yesterday.There is left facial droop. According to staff, the patient has a good appetite with assistance from the staff. There was no untoward events overnight. Objective - Vital Signs/Intake and Output Vital Signs (last 24 hours): Temp Pulse Resp BP Pulse Ox 97.6 F 58 L 20 124/69 97 10/23/17 07:30 10/23/17 07:30 10/23/17 07:30 10/23/17 07:30 10/23/17 07:30 Intake and Output: 10/23/17 10/23/17 06:59 18:59 Intake Total 1840 Output Total 1625 Balance 215 - Medications Medications: Current Medications Albuterol/Ipratropium (Duoneb 3 Mg/0.5 Mg (3 Ml) Ud) 3 ml IH RQ6 [facility] Last Admin: 10/23/17 07:31 Dose: 3 ml Aspirin (Ecotrin) 81 mg PO DAILY [facility] Last Admin: 10/22/17 10:31 Dose: 81 mg Budesonide (Pulmicort Respules) 0.5 mg IH RBID [facility] Last Admin: 10/23/17 07:31 Dose: 0.5 mg Clopidogrel Bisulfate (Plavix) 75 mg PO DAILY [facility] Last Admin: 10/22/17 10:31 Dose: 75 mg Docusate Sodium (Colace) 100 mg PO BID [facility] Last Admin: 10/22/17 18:29 Dose: 100 mg Famotidine (Pepcid) 20 mg PO DAILY [facility] Last Admin: 10/22/17 10:31 Dose: 20 mg Home Med (Patient's Own Medication) 1 tab PO DAILY [facility] Last Admin: 10/22/17 10:33 Dose: 1 tab Home Med (Rilpivirine Hcl [Edurant]) 25 mg PO DAILY [facility] Hypromellose (Tears Naturale Forte) 0 ml OU Q6H PRN Insulin Aspart (Novolog) 7 unit SC ACHS [facility] Last Admin: 10/22/17 21:56 Dose: Not Given Insulin Detemir (Levemir) 10 unit SC HS [facility] Last Admin: 10/22/17 21:55 Dose: Not Given Raltegravir (Isentress) 400 mg PO BID [facility] PRN Reason: Protocol Last Admin: 10/22/17 18:29 Dose: 400 mg Rosuvastatin Calcium (Crestor) 2.5 mg PO HS [facility] Last Admin: 10/22/17 21:46 Dose: 2.5 mg - Labs Labs: 10/23/17 06:29 10/23/17 06:29 PT 14.9 SECONDS (9.7-12.2) H 10/19/17 18:16 INR 1.4 10/19/17 18:16 APTT 44 SECONDS (21-34) H 10/19/17 18:16 - Constitutional Appears: No Acute Distress - Head Exam Head Exam: NORMAL INSPECTION - Neurological Exam Neurological Exam: Alert, Awake Neuro motor strength exam: Left Upper Extremity: 3, Right Upper Extremity: 4, Left Lower Extremity: 2/1, Right Lower Extremity: 3 Additional comments: Neurological unchanged from previous examination. Assessment and Plan (1) Ischemic stroke Assessment & Plan: Case discussed with Dr. Menendez, continue all current medical, physical, occupational, and speech therapies. Awaiting any recommendations from neurointerventionalist. Recommend head of bed elevated, increase po intake for hydration, blood pressure, and glycemic control. Status: Acute
[2017-10-23] MEDS: (Novolog) Insulin Aspart, Recombinant 100 u/ml 10 ml vial SC SCH ×4 (08:28→22:14)
--- NOTE | 2017-10-23 08:43 | CP.PCM.CON ---
History of Present Illness - History of Present Illness History of Present Illness: NEURO-INTERVENTIONAL CONSULT The patient is a 77 year old male who suffered a subacute right MCA territory stroke. This stroke has left the patient non-verbal, but following commands. His Right ICA roberson been found to have a high grade stenosis. Neuro- interventional consult requested. Review of Systems - Review of Systems Systems not reviewed;Unavailable: Acuity of Condition (Non-verbal.) - Constitutional Constitutional: As Per HPI - EENT Eyes: As Per HPI Ears: As Per HPI Nose/Mouth/Throat: As Per HPI - Cardiovascular Cardiovascular: As Per HPI - Respiratory Respiratory: As Per HPI - Gastrointestinal Gastrointestinal: As Per HPI (The patient is non-verbal, cannot obtain ROS.) Past Patient History - Past Medical History & Family History Past Medical History?: Yes - Past Social History Smoking Status: Never Smoked - CARDIAC Hx Hypertension: Yes - PULMONARY Hx Asthma: Yes - NEUROLOGICAL Hx Neurological Disorder: Yes Hx Transient Ischemic Attacks (TIA): Yes - HEENT Hx HEENT Problems: No - RENAL Hx Chronic Kidney Disease: No - ENDOCRINE/METABOLIC Hx Endocrine Disorders: Yes Hx Diabetes Mellitus Type 2: Yes - HEMATOLOGICAL/ONCOLOGICAL Hx Blood Disorders: Yes Hx Human Immunodeficiency Virus (HIV): Yes - INTEGUMENTARY Hx Dermatological Problems: No - MUSCULOSKELETAL/RHEUMATOLOGICAL Hx Musculoskeletal Disorders: No Hx Falls: No - GASTROINTESTINAL Hx Gastrointestinal Disorders: No - GENITOURINARY/GYNECOLOGICAL Hx Genitourinary Disorders: No - PSYCHIATRIC Hx Psychophysiologic Disorder: No Hx Substance Use: No - ANESTHESIA Hx Anesthesia: No Meds Allergies/Adverse Reactions: Allergies Allergy/AdvReac Type Severity Reaction Status Date / Time No Known Allergies Allergy Verified 10/19/17 17:52 - Medications Medications: Current Medications Albuterol/Ipratropium (Duoneb 3 Mg/0.5 Mg (3 Ml) Ud) 3 ml IH RQ6 [facility] Last Admin: 10/23/17 07:31 Dose: 3 ml Aspirin (Ecotrin) 81 mg PO DAILY [facility] Last Admin: 10/22/17 10:31 Dose: 81 mg Budesonide (Pulmicort Respules) 0.5 mg IH RBID [facility] Last Admin: 10/23/17 07:31 Dose: 0.5 mg Clopidogrel Bisulfate (Plavix) 75 mg PO DAILY [facility] Last Admin: 10/22/17 10:31 Dose: 75 mg Docusate Sodium (Colace) 100 mg PO BID [facility] Last Admin: 10/22/17 18:29 Dose: 100 mg Famotidine (Pepcid) 20 mg PO DAILY [facility] Last Admin: 10/22/17 10:31 Dose: 20 mg Home Med (Patient's Own Medication) 1 tab PO DAILY [facility] Last Admin: 10/22/17 10:33 Dose: 1 tab Home Med (Rilpivirine Hcl [Edurant]) 25 mg PO DAILY [facility] Hypromellose (Tears Naturale Forte) 0 ml OU Q6H PRN Insulin Aspart (Novolog) 7 unit SC ACHS [facility] Last Admin: 10/22/17 21:56 Dose: Not Given Insulin Detemir (Levemir) 10 unit SC HS [facility] Last Admin: 10/22/17 21:55 Dose: Not Given Raltegravir (Isentress) 400 mg PO BID [facility] PRN Reason: Protocol Last Admin: 10/22/17 18:29 Dose: 400 mg Rosuvastatin Calcium (Crestor) 2.5 mg PO [facility] Last Admin: 10/22/17 21:46 Dose: 2.5 mg Physical Exam - Additional Findings Additional findings: Awake, Alert Non-verbal Follows simple commands in [place] left arm drift, weakness in other extremities difficult to fully asses due to patient non- compliance. no drift apparet in right and leg. Results - Vital Signs Recent Vital Signs: Last Vital Signs Temp 97.6 F 10/23/17 07:30 Pulse 58 L 10/23/17 07:30 Resp 20 10/23/17 07:30 BP 124/69 10/23/17 07:30 Pulse Ox 97 10/23/17 07:30 - Labs Result Diagrams: 10/23/17 06:29 10/23/17 06:29 Labs: Laboratory Results - last 24 hr 10/22/17 10/22/17 10/22/17 06:34 11:34 16:54 WBC RBC Hgb Hct MCV MCH MCHC RDW Plt Count MPV Sodium Potassium Chloride Carbon Dioxide Anion Gap BUN Creatinine Est GFR ( Amer) Est GFR (Non-Af Amer) POC Glucose (mg/dL) 145 H 60 L Random Glucose Calcium RPR Nonreactive 10/22/17 10/22/17 10/22/17 16:56 17:41 20:06 WBC RBC Hgb Hct MCV MCH MCHC RDW Plt Count MPV Sodium Potassium Chloride Carbon Dioxide Anion Gap BUN Creatinine Est GFR ( Amer) Est GFR (Non-Af Amer) POC Glucose (mg/dL) 54 L 53 L 175 H Random Glucose Calcium RPR 10/22/17 10/23/17 10/23/17 21:15 00:00 06:29 WBC 5.1 RBC 3.62 L Hgb 12.1 Hct 34.8 L MCV 96.1 H MCH 33.4 H MCHC 34.8 RDW 14.8 H Plt Count 271 MPV 6.5 L Sodium Potassium Chloride Carbon Dioxide Anion Gap BUN Creatinine Est GFR ( Amer) Est GFR (Non-Af Amer) POC Glucose (mg/dL) 149 H 156 H Random Glucose Calcium RPR 10/23/17 10/23/17 06:29 06:30 WBC RBC Hgb Hct MCV MCH MCHC RDW Plt Count MPV Sodium 143 Potassium 3.9 Chloride 108 H Carbon Dioxide 24 Anion Gap 15 BUN 9 Creatinine 1.0 Est GFR ( Amer) > 60 Est GFR (Non-Af Amer) > 60 POC Glucose (mg/dL) 127 H Random Glucose 132 H Calcium 8.4 L RPR Assessment & Plan - Assessment and Plan (Free Text) Assessment: 77 year old male with a symptomatic rigt ICA stenosis and a disabling stroke. Plan: 1-Continue current medical management. Agree with statin and dual antiplatelet use. Optimize other medical parameters. 2-Primary management as per Neurology () 3-The patient has a burden of infarct now that would make him a high risk, in my opinion, for repurfusion hemmoraghe shoudl we open his right ICA. Plan will be for the patient to follow up in the office in 1-2 weeks with a repeat CTH. We can consider revascularization at that point, also depending on how his recovery goes. PLEASE ENSURE THAT MR. CONNOR HAS AN APPIONTMENT TO SEE ME IN 1-2 WEEKS PRIOR TO D/C: Dr. Destin Lee MD [phone] Dr. Menendez aware. - Date & Time Date: 10/23/17 Time: 08:42
[2017-10-23] MEDS: Emtricitabine/Tenofov Alafenam [Descovy 200-25 Mg Tablet] PO SCH (10:08)
--- NOTE | 2017-10-23 11:47 | CP.PCM.CON ---
History of Present Illness - History of Present Illness History of Present Illness: Palliative consult requested by Doctor Garcia for goals of care discussion Patient is a77 yo male admitted from [place] with AMS, left arm weakness and aphasia just few hour before the admission. At base line patient was verbal. The CT head was significant for right MCA stroke. The blood thinners initiated and neuro consult called. No aggressive surgical interventions advised at present. Patient is fallowed by Doctor Erica and Doctor Rosa. PMH: HTN, asthma Soc. Hx: [place] resident, single, daughter Stacy involved in care Review of Systems - Review of Systems All systems: reviewed and no additional remarkable complaints except Review of Systems: ROS obtaned from staff, no untoward effects over night Past Patient History - Past Medical History & Family History Past Medical History?: Yes - Past Social History Smoking Status: Never Smoked - CARDIAC Hx Hypertension: Yes - PULMONARY Hx Asthma: Yes - NEUROLOGICAL Hx Neurological Disorder: Yes Hx Transient Ischemic Attacks (TIA): Yes - HEENT Hx HEENT Problems: No - RENAL Hx Chronic Kidney Disease: No - ENDOCRINE/METABOLIC Hx Endocrine Disorders: Yes Hx Diabetes Mellitus Type 2: Yes - HEMATOLOGICAL/ONCOLOGICAL Hx Blood Disorders: Yes Hx Human Immunodeficiency Virus (HIV): Yes - INTEGUMENTARY Hx Dermatological Problems: No - MUSCULOSKELETAL/RHEUMATOLOGICAL Hx Musculoskeletal Disorders: No Hx Falls: No - GASTROINTESTINAL Hx Gastrointestinal Disorders: No - GENITOURINARY/GYNECOLOGICAL Hx Genitourinary Disorders: No - PSYCHIATRIC Hx Psychophysiologic Disorder: No Hx Substance Use: No - ANESTHESIA Hx Anesthesia: No Meds Allergies/Adverse Reactions: Allergies Allergy/AdvReac Type Severity Reaction Status Date / Time No Known Allergies Allergy Verified 10/19/17 17:52 - Medications Medications: Current Medications Albuterol/Ipratropium (Duoneb 3 Mg/0.5 Mg (3 Ml) Ud) 3 ml IH RQ6 [facility] Last Admin: 10/23/17 07:31 Dose: 3 ml Aspirin (Ecotrin) 81 mg PO DAILY [facility] Last Admin: 10/23/17 10:08 Dose: 81 mg Budesonide (Pulmicort Respules) 0.5 mg IH RBID [facility] Last Admin: 10/23/17 07:31 Dose: 0.5 mg Clopidogrel Bisulfate (Plavix) 75 mg PO DAILY [facility] Last Admin: 10/23/17 10:08 Dose: 75 mg Docusate Sodium (Colace) 100 mg PO BID [facility] Last Admin: 10/23/17 10:08 Dose: 100 mg Famotidine (Pepcid) 20 mg PO DAILY [facility] Last Admin: 10/23/17 10:08 Dose: 20 mg Home Med (Patient's Own Medication) 1 tab PO DAILY [facility] Last Admin: 10/23/17 10:08 Dose: 1 tab Home Med (Rilpivirine Hcl [Edurant]) 25 mg PO DAILY [facility] Hypromellose (Tears Naturale Forte) 0 ml OU Q6H PRN Insulin Aspart (Novolog) 7 unit SC [facility] Last Admin: 10/23/17 08:28 Dose: 7 unit Insulin Detemir (Levemir) 10 unit SC [facility] Last Admin: 10/22/17 21:55 Dose: Not Given Raltegravir (Isentress) 400 mg PO BID [facility] PRN Reason: Protocol Last Admin: 10/23/17 10:04 Dose: 400 mg Rosuvastatin Calcium (Crestor) 2.5 mg PO [facility] Last Admin: 10/22/17 21:46 Dose: 2.5 mg Physical Exam - Constitutional Appears: No Acute Distress - Head Exam Head Exam: ATRAUMATIC, NORMAL INSPECTION, NORMOCEPHALIC - Eye Exam Eye Exam: EOMI, Normal appearance, PERRL Pupil Exam: NORMAL ACCOMODATION, PERRL - ENT Exam ENT Exam: Normal Exam - Neck Exam Neck exam: Positive for: Normal Inspection - Respiratory Exam Respiratory Exam: Decreased Breath Sounds, NORMAL BREATHING PATTERN - Cardiovascular Exam Cardiovascular Exam: REGULAR RHYTHM - GI/Abdominal Exam GI & Abdominal Exam: Normal Bowel Sounds, Soft - Rectal Exam Rectal Exam: Deferred - Exam Exam: NORMAL INSPECTION - Extremities Exam Additional comments: left sided weakness - Back Exam Back exam: NORMAL INSPECTION - Neurological Exam Neurological exam: Alert, Altered - Psychiatric Exam Psychiatric exam: Flat Affect - Skin Skin Exam: Intact Additional comments: left face ulcer with old crustj Results - Vital Signs Recent Vital Signs: Last Vital Signs Temp 97.6 F 10/23/17 07:30 Pulse 58 L 10/23/17 07:30 Resp 20 10/23/17 07:30 BP 124/69 10/23/17 07:30 Pulse Ox 97 10/23/17 07:30 - Labs Result Diagrams: 10/23/17 06:29 10/23/17 06:29 Labs: Laboratory Results - last 24 hr 10/22/17 10/22/17 10/22/17 06:34 11:34 16:54 WBC RBC Hgb Hct MCV MCH MCHC RDW Plt Count MPV Sodium Potassium Chloride Carbon Dioxide Anion Gap BUN Creatinine Est GFR ( Amer) Est GFR (Non-Af Amer) POC Glucose (mg/dL) 145 H 60 L Random Glucose Calcium RPR Nonreactive 10/22/17 10/22/17 10/22/17 16:56 17:41 20:06 WBC RBC Hgb Hct MCV MCH MCHC RDW Plt Count MPV Sodium Potassium Chloride Carbon Dioxide Anion Gap BUN Creatinine Est GFR ( Amer) Est GFR (Non-Af Amer) POC Glucose (mg/dL) 54 L 53 L 175 H Random Glucose Calcium RPR 10/22/17 10/23/17 10/23/17 21:15 00:00 06:29 WBC 5.1 RBC 3.62 L Hgb 12.1 Hct 34.8 L MCV 96.1 H MCH 33.4 H MCHC 34.8 RDW 14.8 H Plt Count 271 MPV 6.5 L Sodium Potassium Chloride Carbon Dioxide Anion Gap BUN Creatinine Est GFR ( Amer) Est GFR (Non-Af Amer) POC Glucose (mg/dL) 149 H 156 H Random Glucose Calcium RPR 10/23/17 10/23/17 10/23/17 06:29 06:30 11:08 WBC RBC Hgb Hct MCV MCH MCHC RDW Plt Count MPV Sodium 143 Potassium 3.9 Chloride 108 H Carbon Dioxide 24 Anion Gap 15 BUN 9 Creatinine 1.0 Est GFR ( Amer) > 60 Est GFR (Non-Af Amer) > 60 POC Glucose (mg/dL) 127 H 158 H Random Glucose 132 H Calcium 8.4 L RPR Assessment & Plan - Assessment and Plan (Free Text) Assessment: Palliative consult Full Code, no Advance Directive on the chart, PPS 20% I reviewed medical records, all diagnostic studies, examined patient in the bed. Patient is alert, attempts to fallow simple commends, left facial droop and left sided weakness. Aphasic. There is an elevation to right face just under the eye about 1 in X 1in resembling an ulcer. There is a dry crust in the center , edges reddened. Area is further irritated by NC. Patient is moderate to max assistance with repositioning and getting out of bed. patient able to only partially lift up his left hand and left leg. No impaired mobility to right side.Needs assistance with feeding, nursing reports good appetite. Breath sounds normal, no cough. Abdomen soft, active bowel sounds , incontinent. Patient's daughter did not commit to 11 am scheduled meeting and nobody answered the phone either when I called today. Voice mail left asking for confirmation of meeting. Impression * An elderly male with acute weakness of left side due to stroke * Patient is aphasic and unable to advocate for himself * Patient is unable to participate in goals of care discussion * At risk for pressure sores due to decreased mobility * At risk of dehydration to inability to feed him self * Righr face ulcer Suggestions * Assist with repositioning for comfort and OOB to chair * Anticipate patient's needs and meet them * Promote skin integrity * Offer PO fluids as tolerated, leave the cup with water at patient's right side within reach * Discharge planing to [place] * If possible, surgical consult for evaluation and treatment of right face ulcer * Cover ulcer with soft dressing to prevent further irritation from O2 NC If daughter shows up today, will further discuss goals of care
--- NOTE | 2017-10-23 20:15 | CP.PCM.PN ---
Subjective - Date & Time of Evaluation Date of Evaluation: 10/23/17 Time of Evaluation: 20:15 - Subjective Subjective: AFEBRILE, AWAKE BUT NONVERBAL. SEEN BY NEURO-INTERVENTIONAL AND RECOMMENDATIONS NOTED. DAUGHTER AT BEDSIDE. NO NEW EVENTS. Objective - Vital Signs/Intake and Output Vital Signs (last 24 hours): Temp Pulse Resp BP Pulse Ox 98.5 F 60 20 145/60 100 10/23/17 15:00 10/23/17 15:00 10/23/17 15:00 10/23/17 15:00 10/23/17 15:00 - Medications Medications: Current Medications Albuterol/Ipratropium (Duoneb 3 Mg/0.5 Mg (3 Ml) Ud) 3 ml IH RQ6 [facility] Last Admin: 10/23/17 20:04 Dose: 3 ml Aspirin (Ecotrin) 81 mg PO DAILY [facility] Last Admin: 10/23/17 10:08 Dose: 81 mg Budesonide (Pulmicort Respules) 0.5 mg IH RBID [facility] Last Admin: 10/23/17 20:04 Dose: 0.5 mg Clopidogrel Bisulfate (Plavix) 75 mg PO DAILY [facility] Last Admin: 10/23/17 10:08 Dose: 75 mg Docusate Sodium (Colace) 100 mg PO BID [facility] Last Admin: 10/23/17 18:38 Dose: 100 mg Famotidine (Pepcid) 20 mg PO DAILY [facility] Last Admin: 10/23/17 10:08 Dose: 20 mg Home Med (Patient's Own Medication) 1 tab PO DAILY [facility] Last Admin: 10/23/17 10:08 Dose: 1 tab Home Med (Rilpivirine Hcl [Edurant]) 25 mg PO DAILY [facility] Hypromellose (Tears Naturale Forte) 0 ml OU Q6H PRN Insulin Aspart (Novolog) 7 unit SC ACHS [facility] Last Admin: 10/23/17 11:43 Dose: 7 unit Insulin Detemir (Levemir) 10 unit SC HS [facility] Last Admin: 10/22/17 21:55 Dose: Not Given Raltegravir (Isentress) 400 mg PO BID [facility] PRN Reason: Protocol Last Admin: 10/23/17 18:38 Dose: 400 mg Rosuvastatin Calcium (Crestor) 2.5 mg PO HS [facility] Last Admin: 05/10/18 21:46 Dose: 2.5 mg - Labs Labs: 10/23/17 06:29 10/23/17 06:29 PT 14.9 SECONDS (9.7-12.2) H 10/19/17 18:16 INR 1.4 10/19/17 18:16 APTT 44 SECONDS (21-34) H 10/19/17 18:16 - Constitutional Appears: No Acute Distress - Head Exam Head Exam: NORMAL INSPECTION - Eye Exam Eye Exam: PERRL - ENT Exam ENT Exam: Normal Oropharynx - Neck Exam Neck Exam: Normal Inspection - Respiratory Exam Respiratory Exam: Clear to Ausculation Bilateral - Cardiovascular Exam Cardiovascular Exam: REGULAR RHYTHM, +S1, +S2 - GI/Abdominal Exam GI & Abdominal Exam: Soft, Normal Bowel Sounds - Extremities Exam Extremities Exam: Normal Capillary Refill. absent: Calf Tenderness, Pedal Edema - Neurological Exam Neurological Exam: Awake (NON VERBAL) - Psychiatric Exam Psychiatric exam: Flat Affect - Skin Skin Exam: Normal Color, Warm Assessment and Plan (1) HIV positive Assessment & Plan: RPR-NON REACTIVE. CRYPTOCOCCAL AG -VE. patient to continue present antiretroviral therapy. Patient to use his home medications as present combinations not available in pharmacy. Will monitor HIV 1 RNA PCR quantitative levels.-P Check lymphocyte subset studies with CD4 CD8 ratios.-P PER NEUROLOGY. Status: Acute (2) Change in mental state Status: Acute (3) Ischemic stroke Assessment & Plan: PER NEURO-INTERVENTIONAL NEUROLOGIST. F/U PER HIS NOTES Status: Acute
[2017-10-23] MEDS: Rosuvastatin Calcium 2.5 mg Tab PO SCH (22:13)
[2017-10-23] MEDS: Insulin Detemir 100 units/ml Vial (Levemir) SC SCH (22:13)
[2017-10-24] MEDS: Albuterol-Ipratrop 3 mg / 0.5 (3 ml) UD IH SCH ×3 (03:42→20:19)
[2017-10-24 08:00] LABS: BASO % 0.1 % (0.0-2.0); EOS # 0.4 K/uL (0.0-0.7); EOS % 5.9 % (0.0-4.0); HEMOGLOBIN 12.3 g/dL (12.0-18.0); LYMPH # 0.8 K/uL (1.0-4.3); LYMPH % 12.4 % (20.0-40.0); MEAN CELL VOLUME 96.9 fL (80.0-94.0); MEAN CORPUSCULAR HEMOGLOBIN 32.9 pg (27.0-31.0); MONO # 0.9 K/uL (0.0-0.8); MONO % 14.4 % (0.0-10.0); NEUT # 4.2 K/uL (1.8-7.0); NEUT % 67.2 % (50.0-75.0); RBC 3.73 Mil/uL (4.40-5.90); RED CELL DISTRIBUTION WIDTH 14.7 % (11.5-14.5); WHITE BLOOD COUNT 6.2 K/uL (4.8-10.8)
[2017-10-24] MEDS: (Novolog) Insulin Aspart, Recombinant 100 u/ml 10 ml vial SC SCH ×5 (08:03→22:03)
[2017-10-24 08:30] LABS: ALB/GLOB RATIO 1.1 (1.0-2.1); ALBUMIN 3.4 g/dL (3.5-5.0); ALT/SGPT 9 U/L (21-72); AST/SGOT 19 U/L (17-59); BLOOD UREA NITROGEN 8 mg/dL (9-20); CALCIUM 8.7 mg/dl (8.6-10.4); GFR AFRICAN-AMERICAN > 60; GFR NON-AFRICAN AMERICAN > 60
[2017-10-24] MEDS: Budesonide 0.5 mg/2 ml Inhal Susp UD IH SCH ×2 (08:47→20:19)
[2017-10-24] MEDS: Emtricitabine/Tenofov Alafenam [Descovy 200-25 Mg Tablet] PO SCH (10:35)
[2017-10-24 12:11] LABS: % CD4 (T HELPER CELL) 22 Percent (30-61); % CD8 (SUPPRESSOR T CELL) 47 Percent (12-42); ABSOLUTE CD4 CELLS 213 Cells/mcL (490-1740); ABSOLUTE CD8 CELLS 450 Cells/mcL (180-1170); ABSOLUTE LYMPHOCYTES 955 Cells/mcL (850-3900); HELPER/SUPPRESSOR RATIO 0.47 Ratio (0.86-5.00)
[2017-10-24] MEDS ORDERED: Glucagon Recombinant 1 mg Inj IM PRN (12:27)
[2017-10-24] MEDS ORDERED: Dextrose 50% SYRINGE Inj (50 ml) IVP PRN (12:27)
--- NOTE | 2017-10-24 13:02 | CP.PCM.CON ---
History of Present Illness - History of Present Illness History of Present Illness: Consultation for evaluation of V-tach HPI: 77 year old [place] resident with hx of HTN brought in for AMS changes and new onset aphasia found to have MCA stroke with severe carotid stenosis. While in the hospital was noted on telemetry to have 11 beats run of V-tach. 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 [place] and on OAC for atrial fibrillation and diastolic CHF Review of Systems - Review of Systems Systems not reviewed;Unavailable: Acuity of Condition - Constitutional Constitutional: As Per HPI - EENT Eyes: As Per HPI Ears: As Per HPI Nose/Mouth/Throat: As Per HPI - Cardiovascular Cardiovascular: As Per HPI - Respiratory Respiratory: As Per HPI - Gastrointestinal Gastrointestinal: As Per HPI - Genitourinary Genitourinary: As Per HPI - Reproductive: Male Reproductive:Male: As Per HPI - Musculoskeletal Musculoskeletal: As Per HPI - Integumentary Integumentary: As Per HPI - Neurological Neurological: As Per HPI - Psychiatric Psychiatric: As Per HPI - Endocrine Endocrine: As Per HPI - Hematologic/Lymphatic Hematologic: As Per HPI Past Patient History - Past Medical History & Family History Past Medical History?: Yes - Past Social History Smoking Status: Never Smoked - CARDIAC Hx Hypertension: Yes - PULMONARY Hx Asthma: Yes - NEUROLOGICAL Hx Neurological Disorder: Yes Hx Transient Ischemic Attacks (TIA): Yes - HEENT Hx HEENT Problems: No - RENAL Hx Chronic Kidney Disease: No - ENDOCRINE/METABOLIC Hx Endocrine Disorders: Yes Hx Diabetes Mellitus Type 2: Yes - HEMATOLOGICAL/ONCOLOGICAL Hx Blood Disorders: Yes Hx Human Immunodeficiency Virus (HIV): Yes - INTEGUMENTARY Hx Dermatological Problems: No - MUSCULOSKELETAL/RHEUMATOLOGICAL Hx Musculoskeletal Disorders: No Hx Falls: No - GASTROINTESTINAL Hx Gastrointestinal Disorders: No - GENITOURINARY/GYNECOLOGICAL Hx Genitourinary Disorders: No - PSYCHIATRIC Hx Psychophysiologic Disorder: No Hx Substance Use: No - ANESTHESIA Hx Anesthesia: No Meds Home Medications: Home Medication List Medication Instructions Recorded Confirmed Type Clopidogrel [Plavix] 75 mg PO DAILY #0 tab 10/24/17 Rx Famotidine [Pepcid] 20 mg PO DAILY tab 10/24/17 Rx Rosuvastatin Calcium 2.5 [Crestor] 2.5 mg PO HS tab 10/24/17 Rx Allergies/Adverse Reactions: Allergies Allergy/AdvReac Type Severity Reaction Status Date / Time No Known Allergies Allergy Verified 10/19/17 17:52 - Medications Medications: Current Medications Albuterol/Ipratropium (Duoneb 3 Mg/0.5 Mg (3 Ml) Ud) 3 ml IH RQ6 [facility] Last Admin: 10/24/17 08:47 Dose: 3 ml Aspirin (Ecotrin) 81 mg PO DAILY [facility] Last Admin: 10/24/17 10:35 Dose: 81 mg Budesonide (Pulmicort Respules) 0.5 mg IH RBID [facility] Last Admin: 10/24/17 08:47 Dose: 0.5 mg Clopidogrel Bisulfate (Plavix) 75 mg PO DAILY [facility] Last Admin: 10/24/17 10:35 Dose: 75 mg Dextrose (Dextrose 50% Inj) 0 ml IVP .STAT PRN; Protocol PRN Reason: Hypoglycemia Protocol Last Admin: 10/24/17 12:45 Dose: 50 ml Dextrose (Glutose 15) 0 gm PO .ONCE PRN; Protocol PRN Reason: Hypoglycemia Protocol Docusate Sodium (Colace) 200 mg PO BID [facility] Last Admin: 10/24/17 10:35 Dose: Not Given Famotidine (Pepcid) 20 mg PO DAILY [facility] Last Admin: 10/24/17 10:35 Dose: 20 mg Glucagon (Glucagen Diagnostic Kit) 0 mg IM .STAT PRN; Protocol PRN Reason: Hypoglycemia Protocol Home Med (Patient's Own Medication) 1 tab PO DAILY [facility] Last Admin: 10/24/17 10:35 Dose: 1 tab Home Med (Rilpivirine Hcl [Edurant]) 25 mg PO DAILY [facility] Hypromellose (Tears Naturale Forte) 0 ml OU Q6H PRN Dextrose (Dextrose 5% In Water 1000 Ml) 1,000 mls @ 0 mls/hr IV .Q0M PRN; Protocol; Per Protocol PRN Reason: Hypoglycemia Protocol Insulin Aspart (Novolog) 7 unit SC ACHS [facility] Last Admin: 10/24/17 12:23 Dose: Not Given Insulin Detemir (Levemir) 10 unit SC HS [facility] Last Admin: 10/23/17 22:13 Dose: Not Given Raltegravir (Isentress) 400 mg PO BID [facility] PRN Reason: Protocol Last Admin: 10/24/17 10:35 Dose: 400 mg Rosuvastatin Calcium (Crestor) 2.5 mg PO HS [facility] Last Admin: 10/23/17 22:13 Dose: Not Given Senna/Docusate Sodium (Senokot S 50 Mg-8.6 Mg) 1 tab PO HS [facility] Physical Exam - Constitutional Appears: Well, Other Additional comments: Non-verbal, aphasic, follows commands in cameroonian Non-verbal Follows simple commands in cameroonian - Head Exam Head Exam: ATRAUMATIC, NORMAL INSPECTION, NORMOCEPHALIC - Eye Exam Eye Exam: EOMI, Normal appearance, PERRL Pupil Exam: NORMAL ACCOMODATION, PERRL - ENT Exam ENT Exam: Mucous Membranes Moist, Normal Exam - Neck Exam Neck exam: Positive for: Normal Inspection - Respiratory Exam Respiratory Exam: Clear to Auscultation Bilateral, NORMAL BREATHING PATTERN - Cardiovascular Exam Cardiovascular Exam: REGULAR RHYTHM, +S1, +S2, Systolic Murmur - GI/Abdominal Exam GI & Abdominal Exam: Normal Bowel Sounds, Soft. absent: Tenderness - Extremities Exam Extremities exam: Positive for: normal inspection - Back Exam Back exam: NORMAL INSPECTION - Neurological Exam Neurological exam: Alert Additional comments: left arm drift, weakness in other extremities difficult to fully asses due to patient non- compliance. no drift apparet in right and leg. - Psychiatric Exam Psychiatric exam: Normal Affect, Normal Mood - Skin Skin Exam: Dry, Intact, Normal Color, Warm Results - Vital Signs Recent Vital Signs: Last Vital Signs Temp 98.1 F 10/24/17 07:00 Pulse 60 10/24/17 07:45 Resp 18 10/24/17 07:00 BP 152/74 H 10/24/17 07:00 Pulse Ox 100 10/24/17 07:00 - Labs Result Diagrams: 10/24/17 07:43 10/24/17 07:43 Labs: Laboratory Results - last 24 hr 10/22/17 10/22/17 10/22/17 06:34 06:34 06:34 WBC RBC Hgb Hct MCV MCH MCHC RDW Plt Count MPV Neut % (Auto) Lymph % (Auto) [place] % (Auto) Eos % (Auto) Baso % (Auto) Neut # (Auto) Lymph # (Auto) [place] # (Auto) Eos # (Auto) Baso # (Auto) Sodium Potassium Chloride Carbon Dioxide Anion Gap BUN Creatinine Est GFR ( Amer) Est GFR (Non-Af Amer) POC Glucose (mg/dL) Random Glucose Calcium Total Bilirubin AST ALT Alkaline Phosphatase Total Protein Albumin Globulin Albumin/Globulin Ratio Absolute Lymphs (Flow) 955 % CD4 Cells 22 L Absolute CD4 Count 213 L T-Help/Suppress Ratio 0.47 L % CD8 Cells 47 H Absolute CD8 Count 450 T.pallidum Ab (FTA-ABS) Nonreactive HIV-1 RNA Qnt (RT-PCR) 1.32 H 10/23/17 10/23/17 10/24/17 17:08 21:25 06:18 WBC RBC Hgb Hct MCV MCH MCHC RDW Plt Count MPV Neut % (Auto) Lymph % (Auto) [place] % (Auto) Eos % (Auto) Baso % (Auto) Neut # (Auto) Lymph # (Auto) [place] # (Auto) Eos # (Auto) Baso # (Auto) Sodium Potassium Chloride Carbon Dioxide Anion Gap BUN Creatinine Est GFR ( Amer) Est GFR (Non-Af Amer) POC Glucose (mg/dL) 180 H 176 H 129 H Random Glucose Calcium Total Bilirubin AST ALT Alkaline Phosphatase Total Protein Albumin Globulin Albumin/Globulin Ratio Absolute Lymphs (Flow) % CD4 Cells Absolute CD4 Count T-Help/Suppress Ratio % CD8 Cells Absolute CD8 Count T.pallidum Ab (FTA-ABS) HIV-1 RNA Qnt (RT-PCR) 10/24/17 10/24/17 10/24/17 07:43 07:43 11:44 WBC 6.2 RBC 3.73 L Hgb 12.3 Hct 36.1 MCV 96.9 H MCH 32.9 H MCHC 34.0 RDW 14.7 H Plt Count 282 MPV 7.0 L Neut % (Auto) 67.2 Lymph % (Auto) 12.4 L [place] % (Auto) 14.4 H Eos % (Auto) 5.9 H Baso % (Auto) 0.1 Neut # (Auto) 4.2 Lymph # (Auto) 0.8 L [place] # (Auto) 0.9 H Eos # (Auto) 0.4 Baso # (Auto) 0.0 Sodium 141 Potassium 3.9 Chloride 105 Carbon Dioxide 25 Anion Gap 15 BUN 8 L Creatinine 0.9 Est GFR ( Amer) > 60 Est GFR (Non-Af Amer) > 60 POC Glucose (mg/dL) 52 L Random Glucose 131 H Calcium 8.7 Total Bilirubin 0.7 AST 19 ALT 9 L D Alkaline Phosphatase 76 Total Protein 6.5 Albumin 3.4 L Globulin 3.1 Albumin/Globulin Ratio 1.1 Absolute Lymphs (Flow) % CD4 Cells Absolute CD4 Count T-Help/Suppress Ratio % CD8 Cells Absolute CD8 Count T.pallidum Ab (FTA-ABS) HIV-1 RNA Qnt (RT-PCR) 10/24/17 10/24/17 11:46 12:19 WBC RBC Hgb Hct MCV MCH MCHC RDW Plt Count MPV Neut % (Auto) Lymph % (Auto) [place] % (Auto) Eos % (Auto) Baso % (Auto) Neut # (Auto) Lymph # (Auto) [place] # (Auto) Eos # (Auto) Baso # (Auto) Sodium Potassium Chloride Carbon Dioxide Anion Gap BUN Creatinine Est GFR ( Amer) Est GFR (Non-Af Amer) POC Glucose (mg/dL) 54 L 46 L Random Glucose Calcium Total Bilirubin AST ALT Alkaline Phosphatase Total Protein Albumin Globulin Albumin/Globulin Ratio Absolute Lymphs (Flow) % CD4 Cells Absolute CD4 Count T-Help/Suppress Ratio % CD8 Cells Absolute CD8 Count T.pallidum Ab (FTA-ABS) HIV-1 RNA Qnt (RT-PCR) Assessment & Plan (1) V tach Assessment and Plan: Echo reviewed - normal EF mod , mild pulm HTN plan for lexiscan stress test Status: Acute (2) Aortic stenosis, moderate Status: Acute (3) Change in mental state Status: Acute (4) Ischemic stroke Assessment and Plan: etiology ? thromboembolic OAC Status: Acute Priority: High
--- NOTE | 2017-10-24 21:21 | CP.PCM.PN ---
Subjective - Date & Time of Evaluation Date of Evaluation: 10/24/17 Time of Evaluation: 21:20 - Subjective Subjective: afebrile. NONVERBAL, PER DAUGHTER PATIENT TOLERATING FOOD ORAL THRUSH +VE S/P 11 BEAT RUN OF VT SEEN BY CARDIOLOGY LABS REVIEWED; HIV I RNA +1.32 LOG COPIES /ML HIGH VL CD4 HELPER CELLS ; 213 CD4/CD8,; 0.47 Objective - Vital Signs/Intake and Output Vital Signs (last 24 hours): Temp Pulse Resp BP Pulse Ox 97.5 F L 60 20 148/66 100 10/24/17 15:55 10/24/17 16:00 10/24/17 15:55 10/24/17 15:55 10/24/17 15:55 - Medications Medications: Current Medications Albuterol/Ipratropium (Duoneb 3 Mg/0.5 Mg (3 Ml) Ud) 3 ml IH RQ6 [facility] Last Admin: 10/24/17 20:19 Dose: 3 ml Aspirin (Ecotrin) 81 mg PO DAILY [facility] Last Admin: 10/24/17 10:35 Dose: 81 mg Budesonide (Pulmicort Respules) 0.5 mg IH RBID [facility] Last Admin: 10/24/17 20:19 Dose: Not Given Clopidogrel Bisulfate (Plavix) 75 mg PO DAILY [facility] Last Admin: 10/24/17 10:35 Dose: 75 mg Dextrose (Dextrose 50% Inj) 0 ml IVP .STAT PRN; Protocol PRN Reason: Hypoglycemia Protocol Last Admin: 10/24/17 12:45 Dose: 50 ml Dextrose (Glutose 15) 0 gm PO .ONCE PRN; Protocol PRN Reason: Hypoglycemia Protocol Docusate Sodium (Colace) 200 mg PO BID [facility] Last Admin: 10/24/17 17:47 Dose: 200 mg Famotidine (Pepcid) 20 mg PO DAILY [facility] Last Admin: 10/24/17 10:35 Dose: 20 mg Glucagon (Glucagen Diagnostic Kit) 0 mg IM .STAT PRN; Protocol PRN Reason: Hypoglycemia Protocol Home Med (Patient's Own Medication) 1 tab PO DAILY [facility] Last Admin: 10/24/17 10:35 Dose: 1 tab Home Med (Rilpivirine Hcl [Edurant]) 25 mg PO DAILY [facility] Hypromellose (Tears Naturale Forte) 0 ml OU Q6H PRN Dextrose (Dextrose 5% In Water 1000 Ml) 1,000 mls @ 0 mls/hr IV .Q0M PRN; Protocol; Per Protocol PRN Reason: Hypoglycemia Protocol Insulin Aspart (Novolog) 7 unit SC ACHS [facility] Last Admin: 10/24/17 17:16 Dose: Not Given Insulin Detemir (Levemir) 10 unit SC HS [facility] Last Admin: 10/23/17 22:13 Dose: Not Given Raltegravir (Isentress) 400 mg PO BID [facility] PRN Reason: Protocol Last Admin: 10/24/17 17:54 Dose: 400 mg Rosuvastatin Calcium (Crestor) 2.5 mg PO HS [facility] Last Admin: 10/23/17 22:13 Dose: Not Given Senna/Docusate Sodium (Senokot S 50 Mg-8.6 Mg) 1 tab PO [facility] - Labs Labs: 10/24/17 07:43 10/24/17 07:43 PT 14.9 SECONDS (9.7-12.2) H 10/19/17 18:16 INR 1.4 10/19/17 18:16 APTT 44 SECONDS (21-34) H 10/19/17 18:16 - Constitutional Appears: No Acute Distress - Head Exam Head Exam: NORMAL INSPECTION - Eye Exam Eye Exam: PERRL - ENT Exam ENT Exam: Mucous Membranes Dry (ORAL THRUSH +VE, TONGUE COATED.) - Neck Exam Neck Exam: absent: Lymphadenopathy - Respiratory Exam Respiratory Exam: Decreased Breath Sounds - Cardiovascular Exam Cardiovascular Exam: REGULAR RHYTHM, +S1, +S2 - GI/Abdominal Exam GI & Abdominal Exam: Soft, Normal Bowel Sounds - Extremities Exam Extremities Exam: Normal Capillary Refill. absent: Calf Tenderness, Pedal Edema - Neurological Exam Neurological Exam: Awake ([place] WEAKNES > LLE .NONVERBAL) - Psychiatric Exam Psychiatric exam: Flat Affect - Skin Skin Exam: Normal Color, Warm Assessment and Plan (1) HIV positive Assessment & Plan: patient to continue present antiretroviral therapy. Patient to use his home medications as present combinations not available in pharmacy. Add po bactrim suspension 20ml po mwf for PCJ PROPHYLAXIS. Status: Acute (2) Change in mental state Assessment & Plan: IMPROVING . WILL NEED PT /AND SPEECH THERAPY. Status: Acute (3) Ischemic stroke Assessment & Plan: PER NEURO. PT SHOULD HAVE A BASE LINE OPTHALMOLOGY EVALUATION. R/O ADAN VS CMV RETINITIS. WILL CHECK TOXO/CMV TITRES. Status: Acute
[2017-10-24] MEDS: Docusate-Senna 50 mg-8.6 mg Tab PO SCH (21:51)
[2017-10-24] MEDS: Rosuvastatin Calcium 2.5 mg Tab PO SCH (21:51)
[2017-10-24] MEDS: Insulin Detemir 100 units/ml Vial (Levemir) SC SCH (22:03)
[2017-10-25] MEDS: Albuterol-Ipratrop 3 mg / 0.5 (3 ml) UD IH SCH ×4 (01:16→19:12)
[2017-10-25] MEDS: Budesonide 0.5 mg/2 ml Inhal Susp UD IH SCH ×2 (08:00→19:12)
[2017-10-25] MEDS: (Novolog) Insulin Aspart, Recombinant 100 u/ml 10 ml vial SC SCH ×4 (08:35→21:39)
[2017-10-25] MEDS: Emtricitabine/Tenofov Alafenam [Descovy 200-25 Mg Tablet] PO SCH (09:56)
[2017-10-25] MEDS: EDURANT 25 MG PO SCH (17:44)
[2017-10-25] MEDS: Fluconazole IV 200mg/100 ml NS 100 ML IVPB SCH (22:24)
[2017-10-25] MEDS: Docusate-Senna 50 mg-8.6 mg Tab PO SCH (22:24)
[2017-10-25] MEDS: Rosuvastatin Calcium 2.5 mg Tab PO SCH (22:24)
[2017-10-25] MEDS: Insulin Detemir 100 units/ml Vial (Levemir) SC SCH (22:25)
[2017-10-26] MEDS: Albuterol-Ipratrop 3 mg / 0.5 (3 ml) UD IH SCH ×4 (01:13→19:42)
[2017-10-26] MEDS: Budesonide 0.5 mg/2 ml Inhal Susp UD IH SCH ×2 (07:32→19:42)
--- NOTE | 2017-10-26 07:47 | CP.PCM.PN ---
Subjective - Date & Time of Evaluation Date of Evaluation: 10/26/17 Time of Evaluation: 07:47 - Subjective Subjective: Mr. Aj was seen and examined at the bedside. He remains non-verbal, but able to open his eyes with both verbal and tactile stimuli. He is able to follow few simple commands such as hand squeezing, moving bilateral toes.There is left facial droop. According to staff, the patient has a good appetite with assistance from the staff. He had an episode of v-tach last 10/24/2017, which prompted a cardiology consult.There was no untoward events overnight. Objective - Vital Signs/Intake and Output Vital Signs (last 24 hours): Temp Pulse Resp BP Pulse Ox 98.7 F 60 20 141/65 100 10/25/17 23:00 10/26/17 00:05 10/25/17 23:00 10/25/17 23:00 10/25/17 23:00 Intake and Output: 10/26/17 10/26/17 06:59 18:59 Intake Total 150 Balance 150 - Medications Medications: Current Medications Albuterol/Ipratropium (Duoneb 3 Mg/0.5 Mg (3 Ml) Ud) 3 ml IH RQ6 [facility] Last Admin: 10/26/17 07:32 Dose: 3 ml Aspirin (Ecotrin) 81 mg PO DAILY [facility] Last Admin: 10/25/17 09:55 Dose: 81 mg Budesonide (Pulmicort Respules) 0.5 mg IH RBID [facility] Last Admin: 10/26/17 07:32 Dose: 0.5 mg Clopidogrel Bisulfate (Plavix) 75 mg PO DAILY [facility] Last Admin: 10/25/17 09:55 Dose: 75 mg Dextrose (Dextrose 50% Inj) 0 ml IVP .STAT PRN; Protocol PRN Reason: Hypoglycemia Protocol Last Admin: 10/24/17 12:45 Dose: 50 ml Dextrose (Glutose 15) 0 gm PO .ONCE PRN; Protocol PRN Reason: Hypoglycemia Protocol Docusate Sodium (Colace) 200 mg PO BID [facility] Last Admin: 10/25/17 17:46 Dose: 200 mg Famotidine (Pepcid) 20 mg PO DAILY [facility] Last Admin: 10/25/17 09:55 Dose: 20 mg Gentamicin Sulfate (Gentamicin 0.1%) 0.1 gm TOP DAILY [facility] Glucagon (Glucagen Diagnostic Kit) 0 mg IM .STAT PRN; Protocol PRN Reason: Hypoglycemia Protocol Home Med (Patient's Own Medication) 1 tab PO DAILY [facility] Last Admin: 10/25/17 09:56 Dose: 1 tab Home Med (Patient's Own Medication) 1 tab PO DIN [facility] Last Admin: 10/25/17 17:44 Dose: Not Given Hypromellose (Tears Naturale Forte) 0 ml OU Q6H PRN Dextrose (Dextrose 5% In Water 1000 Ml) 1,000 mls @ 0 mls/hr IV .Q0M PRN; Protocol; Per Protocol PRN Reason: Hypoglycemia Protocol Fluconazole (Diflucan Iv 200 Mg/100 Ml Ns) 100 mls @ 100 mls/hr IVPB DAILY [facility] PRN Reason: Protocol Last Admin: 10/25/17 22:24 Dose: 100 mls/hr Insulin Aspart (Novolog) [address] [facility] Last Admin: 10/25/17 21:39 Dose: Not Given Insulin Detemir (Levemir) 10 unit SC [facility] Last Admin: 10/25/17 22:25 Dose: Not Given Raltegravir (Isentress) 400 mg PO BID [facility] PRN Reason: Protocol Last Admin: 10/25/17 17:47 Dose: 400 mg Rosuvastatin Calcium (Crestor) 2.5 mg PO [facility] Last Admin: 10/25/17 22:24 Dose: 2.5 mg Senna/Docusate Sodium (Senokot S 50 Mg-8.6 Mg) 1 tab PO [facility] Last Admin: 10/25/17 22:24 Dose: 1 tab Trimethoprim/Sulfamethoxazole (Sulfatrim Pediatric Susp) 20 ml PO F [facility] PRN Reason: Protocol - Labs Labs: 10/24/17 07:43 10/24/17 07:43 PT 14.9 SECONDS (9.7-12.2) H 10/19/17 18:16 INR 1.4 10/19/17 18:16 APTT 44 SECONDS (21-34) H 10/19/17 18:16 - Constitutional Appears: No Acute Distress - Head Exam Head Exam: NORMAL INSPECTION - Eye Exam Pupil Exam: Miosis, PERRL - Neurological Exam Neurological Exam: Awake Neuro motor strength exam: Left Upper Extremity: 3, Right Upper Extremity: 4, Left Lower Extremity: 2/1, Right Lower Extremity: 2/1 Additional comments: Neuro;ogical unchanged from previous examination. Assessment and Plan (1) Ischemic stroke Assessment & Plan: Case discussed with Dr. Fraser, continue all current medical, physical, occupational, and speech therapies. Recommend head of bed elevated, increase po intake for hydration, blood pressure, and glycemic control. Seen by neurointerventionalist with recommendation to follow up as an outpatient to determine if patien will need intervention with his PADMINI . Status: Acute
--- NOTE | 2017-10-26 08:52 | CP.PCM.PN ---
Subjective - Date & Time of Evaluation Date of Evaluation: 10/26/17 Time of Evaluation: 08:50 - Subjective Subjective: events noted over the weekend tolerating diet Objective - Vital Signs/Intake and Output Vital Signs (last 24 hours): Temp Pulse Resp BP Pulse Ox 98.5 F 60 20 137/58 L 100 10/26/17 07:15 10/26/17 07:15 10/26/17 07:15 10/26/17 07:15 10/26/17 07:15 Intake and Output: 10/26/17 10/26/17 06:59 18:59 Intake Total 150 Balance 150 - Medications Medications: Current Medications Albuterol/Ipratropium (Duoneb 3 Mg/0.5 Mg (3 Ml) Ud) 3 ml IH RQ6 [facility] Last Admin: 10/26/17 07:32 Dose: 3 ml Aspirin (Ecotrin) 81 mg PO DAILY [facility] Last Admin: 10/25/17 09:55 Dose: 81 mg Budesonide (Pulmicort Respules) 0.5 mg IH RBID [facility] Last Admin: 10/26/17 07:32 Dose: 0.5 mg Clopidogrel Bisulfate (Plavix) 75 mg PO DAILY [facility] Last Admin: 10/25/17 09:55 Dose: 75 mg Dextrose (Dextrose 50% Inj) 0 ml IVP .STAT PRN; Protocol PRN Reason: Hypoglycemia Protocol Last Admin: 10/24/17 12:45 Dose: 50 ml Dextrose (Glutose 15) 0 gm PO .ONCE PRN; Protocol PRN Reason: Hypoglycemia Protocol Docusate Sodium (Colace) 200 mg PO BID [facility] Last Admin: 10/25/17 17:46 Dose: 200 mg Famotidine (Pepcid) 20 mg PO DAILY [facility] Last Admin: 10/25/17 09:55 Dose: 20 mg Gentamicin Sulfate (Gentamicin 0.1%) 0.1 gm TOP DAILY [facility] Glucagon (Glucagen Diagnostic Kit) 0 mg IM .STAT PRN; Protocol PRN Reason: Hypoglycemia Protocol Home Med (Patient's Own Medication) 1 tab PO DAILY [facility] Last Admin: 10/25/17 09:56 Dose: 1 tab Home Med (Patient's Own Medication) 1 tab PO DIN [facility] Last Admin: 10/25/17 17:44 Dose: Not Given Hypromellose (Tears Naturale Forte) 0 ml OU Q6H PRN Dextrose (Dextrose 5% In Water 1000 Ml) 1,000 mls @ 0 mls/hr IV .Q0M PRN; Protocol; Per Protocol PRN Reason: Hypoglycemia Protocol Fluconazole (Diflucan Iv 200 Mg/100 Ml Ns) 100 mls @ 100 mls/hr IVPB DAILY [facility] PRN Reason: Protocol Last Admin: 10/25/17 22:24 Dose: 100 mls/hr Insulin Aspart (Novolog) 7 unit SC ACHS [facility] Last Admin: 10/25/17 21:39 Dose: Not Given Insulin Detemir (Levemir) 10 unit SC [facility] Last Admin: 10/25/17 22:25 Dose: Not Given Raltegravir (Isentress) 400 mg PO BID [facility] PRN Reason: Protocol Last Admin: 10/25/17 17:47 Dose: 400 mg Rosuvastatin Calcium (Crestor) 2.5 mg PO [facility] Last Admin: 10/25/17 22:24 Dose: 2.5 mg Senna/Docusate Sodium (Senokot S 50 Mg-8.6 Mg) 1 tab PO [facility] Last Admin: 10/25/17 22:24 Dose: 1 tab Trimethoprim/Sulfamethoxazole (Sulfatrim Pediatric Susp) 20 ml PO F [facility] PRN Reason: Protocol - Labs Labs: 10/24/17 07:43 10/24/17 07:43 PT 14.9 SECONDS (9.7-12.2) H 10/19/17 18:16 INR 1.4 10/19/17 18:16 APTT 44 SECONDS (21-34) H 10/19/17 18:16 - Constitutional Appears: Well - Head Exam Head Exam: ATRAUMATIC, NORMAL INSPECTION, NORMOCEPHALIC - Eye Exam Eye Exam: EOMI, Normal appearance, PERRL Pupil Exam: NORMAL ACCOMODATION, PERRL - ENT Exam ENT Exam: Mucous Membranes Moist, Normal Exam - Neck Exam Neck Exam: Full ROM, Normal Inspection. absent: Lymphadenopathy - Respiratory Exam Respiratory Exam: Clear to Ausculation Bilateral, NORMAL BREATHING PATTERN - Cardiovascular Exam Cardiovascular Exam: REGULAR RHYTHM, +S1, +S2. absent: Murmur - GI/Abdominal Exam GI & Abdominal Exam: Soft, Normal Bowel Sounds. absent: Tenderness - Extremities Exam Extremities Exam: Full ROM, Normal Capillary Refill, Normal Inspection. absent : Joint Swelling, Pedal Edema - Back Exam Back Exam: NORMAL INSPECTION - Neurological Exam Neurological Exam: Alert, Awake - Psychiatric Exam Psychiatric exam: Flat Affect, Normal Mood - Skin Skin Exam: Dry, Intact, Normal Color, Warm Assessment and Plan (1) V tach Assessment & Plan: BB telemetry lexiscan stress test Status: Acute (2) Aortic stenosis, moderate Status: Acute (3) Change in mental state Status: Acute (4) Ischemic stroke Assessment & Plan: cont asa, plavix Status: Acute
--- NOTE | 2017-10-26 09:45 | PN ---
DATE: 10/25/2017 SUBJECTIVE: Patient is a 77-year-old male. Patient is seen and examined at the bedside, looking comfortable, more awake and alert, extubated yesterday. No nausea, vomiting or diarrhea. No hematuria or hematochezia. No swelling of the legs. No chest pain. No palpitation. No headache. No dizziness. PHYSICAL EXAMINATION: VITAL SIGNS: Temperature 98.5, pulse 60, blood pressure 143/70, respiratory rate 20. HEENT: Head: Normocephalic, atraumatic. Eyes: PERRLA. Extraocular movements intact. Conjunctivae clear. Nose patent. Mucous membrane moist. NECK: Supple. No carotid bruit. No JVD or thyromegaly. CHEST: Bilaterally symmetrical. HEART: S1 and S2 positive. LUNGS: Clear to auscultation. ABDOMEN: Soft. Bowel sounds present. No organomegaly. EXTREMITIES: No edema. No cyanosis. NEUROLOGIC: Patient is awake. Follow simple commands, but sometimes getting confused. MEDICATIONS: Colace, Crestor, dextrose, Ecotrin, gentamicin, glucagon, glucose, Levemir, NovoLog, Pepcid, Plavix, Bactrim. LABORATORY DATA: White blood cell is 6.3, hemoglobin 12.3, hematocrit 36.1, platelets 282. Glucose 151, 201. ASSESSMENT AND PLAN: Patient is a 77-year-old male with multiple medical problems. Has human immunodeficiency virus positive, getting treatment. Infectious Disease is on the case. Change of mental status, ischemic stroke. Neurologist, Dr. Matt Menendez is on the case. Seen by [place], Dr. Aamir Renee. History of hypertension. Patient is aphasic. Has severe carotid stenosis. On the telemetry, there was 11 beat run of ventricular tachycardia, so Cardiology consult called. History of hyperglycemia, aortic stenosis. We discussed with Cardiology about the plan. Otherwise, patient is getting the physical therapy. Gastrointestinal and deep venous thrombosis prophylaxis. History of constipation. Has bowel movement finally. Out of bed. Physical therapy. We will follow up. Natali Garcia MD MYRIAM
--- NOTE | 2017-10-26 09:56 | PN ---
DATE: SUBJECTIVE: The patient was seen and examined at the bedside, looking comfortable, but lethargic as compared to yesterday, just opens eye on command. Otherwise, nonverbal. Daughter was sitting on the bedside. Also according to daughter, the patient has no bowel movement with left facial droop. No nausea or vomiting. No fever, no chills. PHYSICAL EXAMINATION: VITAL SIGNS: Temperature 97.6, pulse 58, respiratory rate 20, blood pressure 124/69, pulse oximetry 97. HEENT: Head: Normocephalic, atraumatic. Eyes: PERRLA. Extraocular muscles intact. Conjunctivae clear. Nose patent. Mucous membranes moist. NECK: Supple. No carotid bruits. No JVD or thyromegaly. CHEST: Bilaterally symmetrical. HEART: S1 and S2 positive. LUNGS: Clear to auscultation. ABDOMEN: Soft. Bowel sounds positive. No organomegaly. EXTREMITIES: No edema, no cyanosis. NEUROLOGICAL: The patient is awake and alert, moving all 4 extremities. No focal deficits. MEDICATIONS: DuoNeb, Ecotrin, Pulmicort, Plavix, Colace, Pepcid, HIV medications, Levemir, and Crestor. LABORATORY DATA: White blood cells 5.1, hemoglobin 12.1, hematocrit 34.8, platelets 271. Sodium 143, potassium 3.9, BUN 9, creatinine 1, and glucose 132. ASSESSMENT AND PLAN: The patient is 77-year-old male with anemia, hyperchloremia, hyperglycemia, has ischemic stroke. Needs physical therapy, occupational therapy, and speech therapy. Neurointerventionalist is on the case. Increase the patient's head elevation. Increase the p.o. intake for hydration. Blood pressure and good glycemic control. Constipation, medications given. According to neurointerventionalist, stroke has left the patient nonverbal, but follows simples commands. His right ICA has been found to have high grade stenosis and neurointerventionalist consult was requested. According to them, continue medical treatment, agree with the statin and dual antiplatelet, optimizing other medical conditions. Primary management is by Dr. Matt Menendez, burden of infarction now that would make him high risk in neurointerventionalist's opinion for re-perfusing hemorrhage right ICA. Plan will be for the patient to follow up in the office in 2 weeks with repeat scans. We can consider revascularization at that point, also depending on how his recovery goes, and the patient has made appointment with neurointerventionalist to see in 1 to [address] input. Meanwhile, continue present treatment. Gastrointestinal and deep venous thrombosis prophylaxis. Repeat labs. We will follow up. Natali Garcia MD MTDD
--- NOTE | 2017-10-26 09:58 | PN ---
DATE: 10/24/2017 SUBJECTIVE: The patient is a 77-year-old male. The patient was seen and examined at the bedside on 10/24/2017. No nausea, vomiting, diarrhea, hematuria, or hematochezia. No swelling of the leg. No chest pain, no palpitations. The patient is a very poor historian. He was still a little bit lethargic. PHYSICAL EXAMINATION: VITAL SIGNS: Temperature 98.1, pulse 60, respiratory rate 18, blood pressure 150/74, pulse oximetry 100%. HEENT: Head: Normocephalic, atraumatic. Eyes: PERRLA. Extraocular movements intact. Conjunctivae clear. Nose: Patent. Mucous membranes moist. NECK: Supple. No carotid bruits, JVD, or thyromegaly. CHEST: Bilaterally symmetrical. HEART: S1 and S2 positive. LUNGS: Clear to auscultation. ABDOMEN: Soft. Bowel sounds positive. No organomegaly. EXTREMITIES: No edema. No cyanosis. NEUROLOGIC: The patient is awake, alert but sometimes getting confused. LABORATORY DATA: White blood cells 6.32, hemoglobin 12.3, hematocrit 36.1, platelets 282. Sodium 141, potassium 3.9, BUN 8, creatinine 0.2, glucose 131. ASSESSMENT AND PLAN: The patient is a 77-year-old male with hyperglycemia, ventricular tachycardia, aortic stenosis, moderate, change in mental status, ischemic stroke. [place] is on the case. Neurologist is on the case also. Plan is to continue DuoNeb, Naproxen, Pulmicort, Plavix, dextrose, folic acid, and Pepcid. The patient is human immunodeficiency virus positive, getting medicines from the Infectious Disease. Gastrointestinal and deep venous thrombosis prophylaxis. Repeat labs. We will follow up. Natali Garcia MD
[2017-10-26] MEDS ORDERED: GENTAMICIN 0.1% TOP SCH (10:00)
[2017-10-26] MEDS: Fluconazole IV 200mg/100 ml NS 100 ML IVPB SCH (10:43)
[2017-10-26] MEDS: EDURANT 25 MG PO SCH (10:43)
[2017-10-26] MEDS: Emtricitabine/Tenofov Alafenam [Descovy 200-25 Mg Tablet] PO SCH (10:44)
[2017-10-26] MEDS: (Novolog) Insulin Aspart, Recombinant 100 u/ml 10 ml vial SC SCH ×4 (10:56→21:40)
[2017-10-26] MEDS: Tmp-Smz 200-40mg/5 ml Oral Sus(120 ml) PO SCH (11:36)
--- NOTE | 2017-10-26 12:12 | CARD ---
APPROVED REPORT EKG Measurement Heart [id number] <Conclusion> Ventricular-paced rhythm with occasional premature ventricular complexes Abnormal ECG
[2017-10-26] MEDS: GENTAMICIN 0.1% TOP SCH (12:21)
[2017-10-26] MEDS: Insulin Detemir 100 units/ml Vial (Levemir) SC SCH (21:12)
[2017-10-26] MEDS: Docusate-Senna 50 mg-8.6 mg Tab PO SCH (21:16)
[2017-10-26] MEDS: Rosuvastatin Calcium 2.5 mg Tab PO SCH (21:16)
--- NOTE | 2017-10-26 23:28 | CP.PCM.PN ---
Subjective - Date & Time of Evaluation Date of Evaluation: 10/26/17 Time of Evaluation: 23:28 - Subjective Subjective: afebrile arousable, remains nonverbal. tolerating diet . DAUGHTER AT BEDSIDE. REPORTS NO DYSPHAGIA BUT HAD ORAL CANDIDIASIS ONCE BEFORE AND TREATED WITH MEDICATIONS AND RESPONDED. DISCUSSED RESULTS OF ADVANCED AIDS/AND POOR cd4 COUNTS. PER DAUGHTER PATIENT WAS TAKING HIS MEDS REGULARLY. WILL TRY TO GET GENOTYPE/PHENOTYPE HIV TO LOOK FOR RESISTANCE OF ANTIRETROVIRAL THERAPY. NEUROLOGY/AND CARDIOLOGY FOLLOW-UP NOTED. Objective - Vital Signs/Intake and Output Vital Signs (last 24 hours): Temp Pulse Resp BP Pulse Ox 98.8 F 60 20 139/68 99 10/26/17 17:16 10/26/17 18:52 10/26/17 17:16 10/26/17 17:16 10/26/17 17:16 Intake and Output: 10/26/17 10/27/17 18:59 06:59 Output Total 300 Balance -300 - Medications Medications: Current Medications Albuterol/Ipratropium (Duoneb 3 Mg/0.5 Mg (3 Ml) Ud) 3 ml IH RQ6 [facility] Last Admin: 10/26/17 19:42 Dose: 3 ml Aspirin (Ecotrin) 81 mg PO DAILY [facility] Last Admin: 10/26/17 10:43 Dose: 81 mg Budesonide (Pulmicort Respules) 0.5 mg IH RBID [facility] Last Admin: 10/26/17 19:42 Dose: 0.5 mg Clopidogrel Bisulfate (Plavix) 75 mg PO DAILY [facility] Last Admin: 10/26/17 10:42 Dose: 75 mg Dextrose (Dextrose 50% Inj) 0 ml IVP .STAT PRN; Protocol PRN Reason: Hypoglycemia Protocol Last Admin: 10/24/17 12:45 Dose: 50 ml Dextrose (Glutose 15) 0 gm PO .ONCE PRN; Protocol PRN Reason: Hypoglycemia Protocol Docusate Sodium (Colace) 200 mg PO BID [facility] Last Admin: 10/26/17 18:22 Dose: 200 mg Famotidine (Pepcid) 20 mg PO DAILY [facility] Last Admin: 10/26/17 10:43 Dose: 20 mg Gentamicin Sulfate (Gentamicin 0.1%) 0 gm TOP DAILY [facility] Last Admin: 10/26/17 12:21 Dose: 1 applic Glucagon (Glucagen Diagnostic Kit) 0 mg IM .STAT PRN; Protocol PRN Reason: Hypoglycemia Protocol Home Med (Patient's Own Medication) 1 tab PO DAILY [facility] Last Admin: 10/26/17 10:44 Dose: 1 tab Home Med (Patient's Own Medication) 1 tab PO DIN [facility] Last Admin: 10/26/17 10:43 Dose: 1 tab Hypromellose (Tears Naturale Forte) 0 ml OU Q6H PRN Dextrose (Dextrose 5% In Water 1000 Ml) 1,000 mls @ 0 mls/hr IV .Q0M PRN; Protocol; Per Protocol PRN Reason: Hypoglycemia Protocol Fluconazole (Diflucan Iv 200 Mg/100 Ml Ns) 100 mls @ 100 mls/hr IVPB DAILY [facility] PRN Reason: Protocol Last Admin: 10/26/17 10:43 Dose: 100 mls/hr Insulin Aspart (Novolog) 7 unit SC [facility] Last Admin: 10/26/17 21:40 Dose: Not Given Insulin Detemir (Levemir) 10 unit SC HS [facility] Last Admin: 10/26/17 21:12 Dose: Not Given Raltegravir (Isentress) 400 mg PO BID [facility] PRN Reason: Protocol Last Admin: 10/26/17 18:19 Dose: 400 mg Rosuvastatin Calcium (Crestor) 2.5 mg PO [facility] Last Admin: 10/26/17 21:16 Dose: 2.5 mg Senna/Docusate Sodium (Senokot S 50 Mg-8.6 Mg) 1 tab PO [facility] Last Admin: 10/26/17 21:16 Dose: 1 tab Trimethoprim/Sulfamethoxazole (Sulfatrim Pediatric Susp) 20 ml PO F [facility] PRN Reason: Protocol Last Admin: 10/26/17 11:36 Dose: 20 ml - Labs Labs: 10/24/17 07:43 10/24/17 07:43 PT 14.9 SECONDS (9.7-12.2) H 10/19/17 18:16 INR 1.4 10/19/17 18:16 APTT 44 SECONDS (21-34) H 10/19/17 18:16 - Constitutional Appears: No Acute Distress - Head Exam Head Exam: NORMAL INSPECTION - Eye Exam Eye Exam: PERRL. absent: Scleral icterus - ENT Exam ENT Exam: Normal Oropharynx (ORAL CANDIDIASIS, TONGUE COATED.) - Neck Exam Neck Exam: Normal Inspection. absent: Lymphadenopathy, Meningismus - Respiratory Exam Respiratory Exam: Clear to Ausculation Bilateral - Cardiovascular Exam Cardiovascular Exam: REGULAR RHYTHM, +S1, +S2 - GI/Abdominal Exam GI & Abdominal Exam: Soft, Normal Bowel Sounds - Extremities Exam Extremities Exam: absent: Calf Tenderness, Pedal Edema - Neurological Exam Neurological Exam: Awake, CN II-XII Intact - Psychiatric Exam Psychiatric exam: Flat Affect - Skin Skin Exam: Normal Color, Warm Assessment and Plan (1) HIV positive Assessment & Plan: patient to continue present antiretroviral therapy. Patient to use his home medications as present combinations not available in pharmacy. Add po bactrim suspension 20ml po mwf for PCJ PROPHYLAXIS HIV GENOTYPE AND PHENOTYPE ORDERED. Status: Acute (2) Oral pharyngeal candidiasis Assessment & Plan: started IV Diflucan 200 mg once a day daily for oral candidiasis 10/25/17. Status: Acute (3) Ischemic stroke Assessment & Plan: as per neurology. Status: Acute (4) Cardiac arrhythmia Assessment & Plan: cardiology on board. Status: Acute
[2017-10-27] MEDS: Albuterol-Ipratrop 3 mg / 0.5 (3 ml) UD IH SCH ×4 (01:46→19:46)
[2017-10-27] MEDS: Budesonide 0.5 mg/2 ml Inhal Susp UD IH SCH ×2 (08:56→19:45)
[2017-10-27] MEDS: Fluconazole IV 200mg/100 ml NS 100 ML IVPB SCH (09:45)
[2017-10-27] MEDS: Emtricitabine/Tenofov Alafenam [Descovy 200-25 Mg Tablet] PO SCH (09:46)
[2017-10-27] MEDS: GENTAMICIN 0.1% TOP SCH (09:46)
[2017-10-27] MEDS: (Novolog) Insulin Aspart, Recombinant 100 u/ml 10 ml vial SC SCH ×4 (09:46→21:58)
--- NOTE | 2017-10-27 10:35 | CP.PCM.PN ---
Subjective - Date & Time of Evaluation Date of Evaluation: 10/27/17 Time of Evaluation: 10:34 - Subjective Subjective: tolerating diet Objective - Vital Signs/Intake and Output Vital Signs (last 24 hours): Temp Pulse Resp BP Pulse Ox 98.2 F 60 18 130/61 96 10/27/17 07:30 10/27/17 07:30 10/27/17 07:30 10/27/17 07:30 10/27/17 07:30 Intake and Output: 10/27/17 10/27/17 06:59 18:59 Output Total 800 Balance -800 - Medications Medications: Current Medications Albuterol/Ipratropium (Duoneb 3 Mg/0.5 Mg (3 Ml) Ud) 3 ml IH RQ6 [facility] Last Admin: 10/27/17 08:56 Dose: 3 ml Aspirin (Ecotrin) 81 mg PO DAILY [facility] Last Admin: 10/27/17 09:46 Dose: 81 mg Budesonide (Pulmicort Respules) 0.5 mg IH RBID [facility] Last Admin: 10/27/17 08:56 Dose: 0.5 mg Clopidogrel Bisulfate (Plavix) 75 mg PO DAILY [facility] Last Admin: 10/27/17 09:46 Dose: 75 mg Dextrose (Dextrose 50% Inj) 0 ml IVP .STAT PRN; Protocol PRN Reason: Hypoglycemia Protocol Last Admin: 10/24/17 12:45 Dose: 50 ml Dextrose (Glutose 15) 0 gm PO .ONCE PRN; Protocol PRN Reason: Hypoglycemia Protocol Docusate Sodium (Colace) 200 mg PO BID [facility] Last Admin: 10/27/17 09:46 Dose: 200 mg Famotidine (Pepcid) 20 mg PO DAILY [facility] Last Admin: 10/27/17 09:46 Dose: 20 mg Gentamicin Sulfate (Gentamicin 0.1%) 0 gm TOP DAILY [facility] Last Admin: 10/27/17 09:46 Dose: 1 applic Glucagon (Glucagen Diagnostic Kit) 0 mg IM .STAT PRN; Protocol PRN Reason: Hypoglycemia Protocol Home Med (Patient's Own Medication) 1 tab PO DAILY [facility] Last Admin: 10/27/17 09:46 Dose: 1 tab Home Med (Patient's Own Medication) 1 tab PO DIN [facility] Last Admin: 10/26/17 10:43 Dose: 1 tab Hypromellose (Tears Naturale Forte) 0 ml OU Q6H PRN Dextrose (Dextrose 5% In Water 1000 Ml) 1,000 mls @ 0 mls/hr IV .Q0M PRN; Protocol; Per Protocol PRN Reason: Hypoglycemia Protocol Fluconazole (Diflucan Iv 200 Mg/100 Ml Ns) 100 mls @ 100 mls/hr IVPB DAILY [facility] PRN Reason: Protocol Last Admin: 10/27/17 09:45 Dose: 100 mls/hr Insulin Aspart (Novolog) 7 unit SC [facility] Last Admin: 10/27/17 09:46 Dose: 7 unit Insulin Detemir (Levemir) 10 unit SC [facility] Last Admin: 10/26/17 21:12 Dose: Not Given Raltegravir (Isentress) 400 mg PO BID [facility] PRN Reason: Protocol Last Admin: 10/27/17 09:46 Dose: 400 mg Rosuvastatin Calcium (Crestor) 2.5 mg PO [facility] Last Admin: 10/26/17 21:16 Dose: 2.5 mg Senna/Docusate Sodium (Senokot S 50 Mg-8.6 Mg) 1 tab PO [facility] Last Admin: 10/26/17 21:16 Dose: 1 tab Trimethoprim/Sulfamethoxazole (Sulfatrim Pediatric Susp) 20 ml PO F [facility] PRN Reason: Protocol Last Admin: 10/26/17 11:36 Dose: 20 ml - Labs Labs: 10/24/17 07:43 10/24/17 07:43 PT 14.9 SECONDS (9.7-12.2) H 10/19/17 18:16 INR 1.4 10/19/17 18:16 APTT 44 SECONDS (21-34) H 10/19/17 18:16 - Constitutional Appears: Well - Head Exam Head Exam: ATRAUMATIC, NORMAL INSPECTION, NORMOCEPHALIC - Eye Exam Eye Exam: EOMI, Normal appearance, PERRL Pupil Exam: NORMAL ACCOMODATION, PERRL - ENT Exam ENT Exam: Mucous Membranes Moist, Normal Exam - Neck Exam Neck Exam: Full ROM, Normal Inspection. absent: Lymphadenopathy - Respiratory Exam Respiratory Exam: Clear to Ausculation Bilateral, NORMAL BREATHING PATTERN - Cardiovascular Exam Cardiovascular Exam: REGULAR RHYTHM, +S1, +S2. absent: Murmur - GI/Abdominal Exam GI & Abdominal Exam: Soft, Normal Bowel Sounds. absent: Tenderness - Extremities Exam Extremities Exam: Full ROM, Normal Capillary Refill, Normal Inspection. absent : Joint Swelling, Pedal Edema - Back Exam Back Exam: NORMAL INSPECTION - Neurological Exam Neurological Exam: Alert, Awake, CN II-XII Intact, Normal Gait, Oriented x3 - Psychiatric Exam Psychiatric exam: Normal Affect, Normal Mood - Skin Skin Exam: Dry, Intact, Normal Color, Warm Assessment and Plan (1) V tach Assessment & Plan: bb discussed with his machine hose cutter - had stress test in late 2016 with no evidence of ischemia cont bb stable to dc home outpt f/u with his machine hose cutter Status: Acute (2) Aortic stenosis, moderate Status: Acute (3) Change in mental state Status: Acute (4) Ischemic stroke Assessment & Plan: asa, plavix statins acei Status: Acute
[2017-10-27] MEDS: Metoprolol Succinate 50 mg XL Tab PO SCH ×2 (11:55→12:02)
[2017-10-27] MEDS: Metoprolol Succinate 25 mg XL Tab PO SCH (13:03)
--- NOTE | 2017-10-27 13:32 | PN ---
DATE: 10/26/2017 SUBJECTIVE: The patient was seen and examined at the bedside and looking comfortable. Son-in-law was at the bedside also. Opening eyes on command. No change of status. No hematuria or hematochezia. Tolerating diet very well. No fever, no chills. PHYSICAL EXAMINATION VITAL SIGNS: Temperature 98.5, pulse of 80, respiratory rate 20, blood pressure 137/58, pulse oximetry 100. HEENT: Head normocephalic, atraumatic. Eyes: PERRLA. Extraocular muscles intact. Conjunctivae clear. Nose patent. Mucous membranes moist. NECK: Supple. No carotid bruits. No JVD or thyromegaly. CHEST: Bilaterally symmetrical. HEART: S1 and S2 positive. LUNGS: Clear to auscultation. ABDOMEN: Soft. Bowel sounds positive. No organomegaly. EXTREMITIES: No edema, no cyanosis. NEUROLOGICAL: The patient is sleepy, opening eyes with command. MEDICATIONS: DuoNeb, Ecotrin, Pulmicort, Plavix, dextrose, Colace, Pepcid, gentamicin, Diflucan, insulin, Levemir, Crestor. LABORATORY DATA: White blood cell 20, hemoglobin 12.3, hematocrit 36.1, platelets 282. Sodium 141, potassium 3.9, BUN 8, creatinine 0.9, glucose 131. ASSESSMENT AND PLAN: Mr. Candelario Aj is a 77-year-old male with ventricular tachycardia, BB. The patient is on telemetry. Cardiology is planning about stress test. The patient has aortic stenosis moderate, history of change of mental status, history of ischemic stroke. Continue aspirin and Plavix. Appreciated Cardiology's input. Seen by Dr. Haily Pizarro, Infectious Disease, and Dr. Fraser, neurologist. The patient has advanced AIDS and poor CD4 counts. As per daughter, the patient was taking his medication regularly. We will track the genotype/phenotype HIV to look for resistance of the antiretroviral therapy as per ID. Reviewed Dr. Kathy Fraser's notes, neurologist. The patient remains nonverbal. There is a left facial droop. last 10/24/2017. There is no untoward event overnight. Discussion done with the patient's family. Continue current medical, physical, occupational, and speech therapies. Recommending head of bed elevation, increased p.o. intake for hydration and blood pressure control, currently got good glycemic control. Seen by neuro interventionalist who did recommend to follow up as outpatient to determine if the patient will need intervention with his right internal carotid artery. We will follow up. Natali Garcia MD MTDJalyn
[2017-10-27] MEDS: Rosuvastatin Calcium 2.5 mg Tab PO SCH (22:00)
[2017-10-27] MEDS: Docusate-Senna 50 mg-8.6 mg Tab PO SCH (22:00)
[2017-10-27] MEDS: Insulin Detemir 100 units/ml Vial (Levemir) SC SCH (22:01)
--- NOTE | 2017-10-27 23:30 | CP.PCM.PN ---
Subjective - Date & Time of Evaluation Date of Evaluation: 10/27/17 Time of Evaluation: 23:30 - Subjective Subjective: afebrile arousable, remains nonverbal. tolerating diet . daughter states awaiting stress test. Objective - Vital Signs/Intake and Output Vital Signs (last 24 hours): Temp Pulse Resp BP Pulse Ox 97.9 F 60 20 122/65 97 10/27/17 16:00 10/27/17 16:00 10/27/17 16:00 10/27/17 16:00 10/27/17 16:00 - Medications Medications: Current Medications Albuterol/Ipratropium (Duoneb 3 Mg/0.5 Mg (3 Ml) Ud) 3 ml IH RQ6 [facility] Last Admin: 10/27/17 19:46 Dose: 3 ml Aspirin (Ecotrin) 81 mg PO DAILY [facility] Last Admin: 10/27/17 09:46 Dose: 81 mg Budesonide (Pulmicort Respules) 0.5 mg IH RBID [facility] Last Admin: 10/27/17 19:45 Dose: Not Given Clopidogrel Bisulfate (Plavix) 75 mg PO DAILY [facility] Last Admin: 10/27/17 09:46 Dose: 75 mg Dextrose (Dextrose 50% Inj) 0 ml IVP .STAT PRN; Protocol PRN Reason: Hypoglycemia Protocol Last Admin: 10/24/17 12:45 Dose: 50 ml Dextrose (Glutose 15) 0 gm PO .ONCE PRN; Protocol PRN Reason: Hypoglycemia Protocol Docusate Sodium (Colace) 200 mg PO BID [facility] Last Admin: 10/27/17 17:48 Dose: 200 mg Famotidine (Pepcid) 20 mg PO DAILY [facility] Last Admin: 10/27/17 09:46 Dose: 20 mg Gentamicin Sulfate (Gentamicin 0.1%) 0 gm TOP DAILY [facility] Last Admin: 10/27/17 09:46 Dose: 1 applic Glucagon (Glucagen Diagnostic Kit) 0 mg IM .STAT PRN; Protocol PRN Reason: Hypoglycemia Protocol Home Med (Patient's Own Medication) 1 tab PO DAILY [facility] Last Admin: 10/27/17 09:46 Dose: 1 tab Home Med (Patient's Own Medication) 1 tab PO DIN [facility] Last Admin: 10/26/17 10:43 Dose: 1 tab Hypromellose (Tears Naturale Forte) 0 ml OU Q6H PRN Fluconazole (Diflucan Iv 200 Mg/100 Ml Ns) 100 mls @ 100 mls/hr IVPB DAILY [facility] PRN Reason: Protocol Last Admin: 10/27/17 09:45 Dose: 100 mls/hr Insulin Aspart (Novolog) 7 unit SC [facility] Last Admin: 10/27/17 21:58 Dose: Not Given Insulin Detemir (Levemir) 10 unit SC [facility] Last Admin: 10/27/17 22:01 Dose: Not Given Lisinopril (Zestril) 10 mg PO DAILY [facility] Last Admin: 10/27/17 11:55 Dose: 10 mg Metoprolol Succinate (Toprol Xl) 25 mg PO DAILY [facility] Last Admin: 10/27/17 13:03 Dose: 25 mg Raltegravir (Isentress) 400 mg PO BID [facility] PRN Reason: Protocol Last Admin: 10/27/17 17:47 Dose: 400 mg Rosuvastatin Calcium (Crestor) 2.5 mg PO [facility] Last Admin: 10/27/17 22:00 Dose: 2.5 mg Senna/Docusate Sodium (Senokot S 50 Mg-8.6 Mg) 1 tab PO [facility] Last Admin: 10/27/17 22:00 Dose: 1 tab Trimethoprim/Sulfamethoxazole (Sulfatrim Pediatric Susp) 20 ml PO [facility] [place] PRN Reason: Protocol Last Admin: 10/26/17 11:36 Dose: 20 ml - Labs Labs: 10/24/17 07:43 10/24/17 07:43 PT 14.9 SECONDS (9.7-12.2) H 10/19/17 18:16 INR 1.4 10/19/17 18:16 APTT 44 SECONDS (21-34) H 10/19/17 18:16 - Constitutional Appears: No Acute Distress, Confused - Head Exam Head Exam: NORMAL INSPECTION - Eye Exam Eye Exam: EOMI, PERRL - ENT Exam ENT Exam: Normal Oropharynx (+ve oral candidiasis.) - Neck Exam Neck Exam: Normal Inspection - Respiratory Exam Respiratory Exam: Decreased Breath Sounds - Cardiovascular Exam Cardiovascular Exam: REGULAR RHYTHM, +S1, +S2 - GI/Abdominal Exam GI & Abdominal Exam: Soft, Normal Bowel Sounds - Extremities Exam Extremities Exam: Normal Capillary Refill. absent: Calf Tenderness, Pedal Edema - Neurological Exam Neurological Exam: Awake, CN II-XII Intact - Skin Skin Exam: Warm Assessment and Plan (1) HIV positive Assessment & Plan: patient to continue present antiretroviral therapy. Patient to use his home medications as present combinations not available in pharmacy. on po bactrim suspension 20ml po mwf for PCJ PROPHYLAXIS HIV GENOTYPE ordered TO LOOK FOR RESISTANCE. Status: Acute (2) Oral pharyngeal candidiasis Assessment & Plan: ON IV Diflucan 200 mg once a day daily for oral candidiasis 10/25/17. Status: Acute (3) Ischemic stroke Status: Acute (4) Cardiac arrhythmia Status: Acute
[2017-10-28] MEDS: Albuterol-Ipratrop 3 mg / 0.5 (3 ml) UD IH SCH ×4 (01:11→19:54)
[2017-10-28] MEDS: Budesonide 0.5 mg/2 ml Inhal Susp UD IH SCH ×2 (07:25→19:54)
[2017-10-28] MEDS: (Novolog) Insulin Aspart, Recombinant 100 u/ml 10 ml vial SC SCH ×4 (08:28→22:16)
--- NOTE | 2017-10-28 08:31 | CP.PCM.PN ---
Subjective - Date & Time of Evaluation Date of Evaluation: 10/28/17 Time of Evaluation: 08:31 - Subjective Subjective: Mr. Aj was seen and examined at the bedside. He remains non-verbal, but able to open his eyes with both verbal and tactile stimuli. He is not able to maintain his eyes open. He is able to follow few simple commands such as hand squeezing, moving bilateral toes.There is left facial droop and left side weakness. There was no untoward events overnight. Objective - Vital Signs/Intake and Output Vital Signs (last 24 hours): Temp Pulse Resp BP Pulse Ox 97.5 F L 60 20 112/59 L 100 10/28/17 07:00 10/28/17 07:00 10/28/17 07:00 10/28/17 07:00 10/28/17 07:00 Intake and Output: 10/28/17 10/28/17 06:59 18:59 Output Total 600 Balance -600 - Medications Medications: Current Medications Albuterol/Ipratropium (Duoneb 3 Mg/0.5 Mg (3 Ml) Ud) 3 ml IH RQ6 [facility] Last Admin: 10/28/17 07:25 Dose: 3 ml Amantadine HCl (Symmetrel) 100 mg PO DAILY [facility] Aspirin (Ecotrin) 81 mg PO DAILY [facility] Last Admin: 10/27/17 09:46 Dose: 81 mg Budesonide (Pulmicort Respules) 0.5 mg IH RBID [facility] Last Admin: 10/28/17 07:25 Dose: 0.5 mg Clopidogrel Bisulfate (Plavix) 75 mg PO DAILY [facility] Last Admin: 10/27/17 09:46 Dose: 75 mg Dextrose (Dextrose 50% Inj) 0 ml IVP .STAT PRN; Protocol PRN Reason: Hypoglycemia Protocol Last Admin: 10/24/17 12:45 Dose: 50 ml Dextrose (Glutose 15) 0 gm PO .ONCE PRN; Protocol PRN Reason: Hypoglycemia Protocol Docusate Sodium (Colace) 200 mg PO BID [facility] Last Admin: 10/27/17 17:48 Dose: 200 mg Famotidine (Pepcid) 20 mg PO DAILY [facility] Last Admin: 10/27/17 09:46 Dose: 20 mg Gentamicin Sulfate (Gentamicin 0.1%) 0 gm TOP DAILY [facility] Last Admin: 10/27/17 09:46 Dose: 1 applic Glucagon (Glucagen Diagnostic Kit) 0 mg IM .STAT PRN; Protocol PRN Reason: Hypoglycemia Protocol Home Med (Patient's Own Medication) 1 tab PO DAILY [facility] Last Admin: 10/27/17 09:46 Dose: 1 tab Home Med (Patient's Own Medication) 1 tab PO DIN [facility] Last Admin: 10/26/17 10:43 Dose: 1 tab Hypromellose (Tears Naturale Forte) 0 ml OU Q6H PRN Fluconazole (Diflucan Iv 200 Mg/100 Ml Ns) 100 mls @ 100 mls/hr IVPB DAILY [facility] PRN Reason: Protocol Last Admin: 10/27/17 09:45 Dose: 100 mls/hr Insulin Aspart (Novolog) 7 unit SC ACHS [facility] Last Admin: 10/28/17 08:28 Dose: 7 unit Insulin Detemir (Levemir) 10 unit SC HS [facility] Last Admin: 10/27/17 22:01 Dose: Not Given Lisinopril (Zestril) 10 mg PO DAILY [facility] Last Admin: 10/27/17 11:55 Dose: 10 mg Metoprolol Succinate (Toprol Xl) 25 mg PO DAILY [facility] Last Admin: 10/27/17 13:03 Dose: 25 mg Raltegravir (Isentress) 400 mg PO BID [facility] PRN Reason: Protocol Last Admin: 10/27/17 17:47 Dose: 400 mg Rosuvastatin Calcium (Crestor) 2.5 mg PO [facility] Last Admin: 10/27/17 22:00 Dose: 2.5 mg Senna/Docusate Sodium (Senokot S 50 Mg-8.6 Mg) 1 tab PO [facility] Last Admin: 10/27/17 22:00 Dose: 1 tab Trimethoprim/Sulfamethoxazole (Sulfatrim Pediatric Susp) 20 ml PO F [facility] PRN Reason: Protocol Last Admin: 10/26/17 11:36 Dose: 20 ml - Labs Labs: 10/24/17 07:43 10/24/17 07:43 PT 14.9 SECONDS (9.7-12.2) H 10/19/17 18:16 INR 1.4 10/19/17 18:16 APTT 44 SECONDS (21-34) H 10/19/17 18:16 - Constitutional Appears: No Acute Distress - Head Exam Head Exam: NORMAL INSPECTION - Neurological Exam Neurological Exam: Awake Neuro motor strength exam: Left Upper Extremity: 3, Right Upper Extremity: 4, Left Lower Extremity: 3, Right Lower Extremity: 4 Additional comments: He is sleepy, able to participate during assessment. Sensation is intact. Assessment and Plan (1) Ischemic stroke Assessment & Plan: Case discussed with Dr. Fraser, continue all current medical, physical, occupational, and speech therapies. Recommend head of bed elevated, increase po intake for hydration, blood pressure, and glycemic control. Recommend to start Amantadine 100 mg PO daily to assist patient with mental alertness. Status: Acute
[2017-10-28] MEDS: Amantadine 50 mg/5 ml Syrup (473 ml) PO SCH (10:29)
[2017-10-28] MEDS: Metoprolol Succinate 25 mg XL Tab PO SCH (10:35)
[2017-10-28] MEDS: Fluconazole IV 200mg/100 ml NS 100 ML IVPB SCH (10:35)
[2017-10-28] MEDS: Emtricitabine/Tenofov Alafenam [Descovy 200-25 Mg Tablet] PO SCH (10:36)
[2017-10-28] MEDS: GENTAMICIN 0.1% TOP SCH (10:41)
[2017-10-28] MEDS: Tmp-Smz 200-40mg/5 ml Oral Sus(120 ml) PO SCH (10:41)
--- NOTE | 2017-10-28 12:54 | CP.PCM.PN ---
<Marlon Will - Last Filed: 10/28/17 20:50> Subjective - Date & Time of Evaluation Date of Evaluation: 10/28/17 Time of Evaluation: 11:00 - Subjective Subjective: Marlon Will PGY1 Cardiology Progress Note for Dr. Renee Patient was seen and examined at bedside. Patient is able to follow commands and is moving b/l upper and lower extremities with difficulties. no acute overnight events reported. We discussed with daughter Stacy (POA, ) regarding his cardiac history and she states that he had a bypass done 20 years ago and that his cash applications specialist is Dr. Marin in [place]. Dr. Marin was also contacted ([phone]) and he stated that the patient's PMH includes HIV, paroxysmal AFib, CKD, and that his last stress test was done in late 2016 and showed no reversible defects. Objective - Vital Signs/Intake and Output Vital Signs (last 24 hours): Temp Pulse Resp BP Pulse Ox 97.5 F L 60 20 119/65 100 10/28/17 07:00 10/28/17 10:37 10/28/17 07:00 10/28/17 10:37 10/28/17 07:00 Intake and Output: 10/28/17 10/28/17 06:59 18:59 Output Total 600 Balance -600 - Medications Medications: Current Medications Albuterol/Ipratropium (Duoneb 3 Mg/0.5 Mg (3 Ml) Ud) 3 ml IH RQ6 [facility] Last Admin: 10/28/17 07:25 Dose: 3 ml Amantadine HCl (Symmetrel) 100 mg PO DAILY [facility] Last Admin: 10/28/17 10:29 Dose: 100 mg Aspirin (Aspirin Chewable) 81 mg PO DAILY [facility] Last Admin: 10/28/17 10:35 Dose: 81 mg Budesonide (Pulmicort Respules) 0.5 mg IH RBID [facility] Last Admin: 10/28/17 07:25 Dose: 0.5 mg Clopidogrel Bisulfate (Plavix) 75 mg PO DAILY [facility] Last Admin: 10/28/17 10:35 Dose: 75 mg Dextrose (Dextrose 50% Inj) 0 ml IVP .STAT PRN; Protocol PRN Reason: Hypoglycemia Protocol Last Admin: 10/24/17 12:45 Dose: 50 ml Dextrose (Glutose 15) 0 gm PO .ONCE PRN; Protocol PRN Reason: Hypoglycemia Protocol Docusate Sodium (Colace) 200 mg PO BID [facility] Last Admin: 10/28/17 10:35 Dose: 200 mg Famotidine (Pepcid) 20 mg PO DAILY [facility] Last Admin: 10/28/17 10:35 Dose: 20 mg Gentamicin Sulfate (Gentamicin 0.1%) 0 gm TOP DAILY [facility] Last Admin: 10/28/17 10:41 Dose: 1 applic Glucagon (Glucagen Diagnostic Kit) 0 mg IM .STAT PRN; Protocol PRN Reason: Hypoglycemia Protocol Home Med (Patient's Own Medication) 1 tab PO DAILY [facility] Last Admin: 10/28/17 10:36 Dose: 1 tab Home Med (Patient's Own Medication) 1 tab PO DIN [facility] Last Admin: 10/26/17 10:43 Dose: 1 tab Hypromellose (Tears Naturale Forte) 0 ml OU Q6H PRN Fluconazole (Diflucan Iv 200 Mg/100 Ml Ns) 100 mls @ 100 mls/hr IVPB DAILY [facility] PRN Reason: Protocol Last Admin: 10/28/17 10:35 Dose: 100 mls/hr Insulin Aspart (Novolog) 7 unit SC ACHS [facility] Last Admin: 10/28/17 08:28 Dose: 7 unit Insulin Detemir (Levemir) 10 unit SC HS [facility] Last Admin: 10/27/17 22:01 Dose: Not Given Lisinopril (Zestril) 10 mg PO DAILY [facility] Last Admin: 10/28/17 10:35 Dose: 10 mg Metoprolol Succinate (Toprol Xl) 25 mg PO DAILY [facility] Last Admin: 10/28/17 10:35 Dose: 25 mg Raltegravir (Isentress) 400 mg PO BID [facility] PRN Reason: Protocol Last Admin: 10/28/17 10:36 Dose: 400 mg Rosuvastatin Calcium (Crestor) 2.5 mg PO [facility] Last Admin: 10/27/17 22:00 Dose: 2.5 mg Senna/Docusate Sodium (Senokot S 50 Mg-8.6 Mg) 1 tab PO [facility] Last Admin: 10/27/17 22:00 Dose: 1 tab Trimethoprim/Sulfamethoxazole (Sulfatrim Pediatric Susp) 20 ml PO [facility] PRN Reason: Protocol Last Admin: 10/28/17 10:41 Dose: 20 ml - Labs Labs: 10/24/17 07:43 10/24/17 07:43 PT 14.9 SECONDS (9.7-12.2) H 10/19/17 18:16 INR 1.4 10/19/17 18:16 APTT 44 SECONDS (21-34) H 10/19/17 18:16 - Constitutional Appears: Well, Non-toxic, No Acute Distress - Head Exam Head Exam: NORMAL INSPECTION - Eye Exam Eye Exam: Normal appearance - ENT Exam ENT Exam: Mucous Membranes Moist - Neck Exam Neck Exam: Normal Inspection - Respiratory Exam Respiratory Exam: NORMAL BREATHING PATTERN. absent: Rales, Rhonchi, Wheezes - Cardiovascular Exam Cardiovascular Exam: RRR, +S1, +S2, Murmur - GI/Abdominal Exam GI & Abdominal Exam: Soft, Normal Bowel Sounds. absent: Distended, Tenderness - Extremities Exam Extremities Exam: Full ROM (improving), Normal Inspection. absent: Pedal Edema - Back Exam Back Exam: NORMAL INSPECTION - Neurological Exam Neurological Exam: Altered, Awake Additional comments: left facial droop and l sided weakness - Psychiatric Exam Psychiatric exam: Normal Mood - Skin Skin Exam: Warm Assessment and Plan - Assessment and Plan (Free Text) Assessment: 77yo Male with a PMH of HIV, paroxysmal AFib, CKD, CVA, DM2, CHF w/ AICD brought in from residential for lethargy and confusion found to have right frontal lobe CVA Plan: 1. Ischemic stroke - CT Head showed questionable acute/subacute right parietal infarct and extensive chronic ischemic disease - CTA Head/Neck showed significant stenosis of R carotid bifurcation and moderate @ L carotid bifurcation - EKG on presentation showed ventricular paced rhythm - Echo showed EF 65% w/ mild LVH and pulm htn - Carotid US showed 60-70% stenosis @ right proximal ICA - discussed with cash applications specialist Dr. Marin about prior stress test, patient doesn' t need another test at this time due to finding of non-reversible findings on last stress in 2017 - cont ASA and Plavix - cont Crestor, Toprol and Lisinopril - patient is cleared by cardio for d/c - should f/u outpatient cardiology 2. DM2 - cont Levemir and Novolog - cont strict glycemic control 3. HIV - on HAART rx Patient was evaluated and discussed with Dr. Renee <Aamir Renee - Last Filed: 10/29/17 08:40> Objective - Vital Signs/Intake and Output Vital Signs (last 24 hours): Temp Pulse Resp BP Pulse Ox 97.9 F 60 20 146/69 99 10/29/17 04:20 10/29/17 07:03 10/29/17 04:20 10/29/17 04:20 10/29/17 04:20 Intake and Output: 10/29/17 10/29/17 06:59 18:59 Output Total 1050 Balance -1050 - Medications Medications: Current Medications Albuterol/Ipratropium (Duoneb 3 Mg/0.5 Mg (3 Ml) Ud) 3 ml IH RQ6 [facility] Last Admin: 10/29/17 07:18 Dose: 3 ml Amantadine HCl (Symmetrel) 100 mg PO DAILY [facility] Last Admin: 10/28/17 10:29 Dose: 100 mg Aspirin (Aspirin Chewable) 81 mg PO DAILY [facility] Last Admin: 10/28/17 10:35 Dose: 81 mg Budesonide (Pulmicort Respules) 0.5 mg IH RBID [facility] Last Admin: 10/29/17 07:19 Dose: 0.5 mg Clopidogrel Bisulfate (Plavix) 75 mg PO DAILY [facility] Last Admin: 10/28/17 10:35 Dose: 75 mg Dextrose (Dextrose 50% Inj) 0 ml IVP .STAT PRN; Protocol PRN Reason: Hypoglycemia Protocol Last Admin: 10/24/17 12:45 Dose: 50 ml Dextrose (Glutose 15) 0 gm PO .ONCE PRN; Protocol PRN Reason: Hypoglycemia Protocol Docusate Sodium (Colace) 200 mg PO BID [facility] Last Admin: 10/28/17 18:22 Dose: 200 mg Famotidine (Pepcid) 20 mg PO DAILY [facility] Last Admin: 10/28/17 10:35 Dose: 20 mg Gentamicin Sulfate (Gentamicin 0.1%) 0 gm TOP DAILY [facility] Last Admin: 10/28/17 10:41 Dose: 1 applic Glucagon (Glucagen Diagnostic Kit) 0 mg IM .STAT PRN; Protocol PRN Reason: Hypoglycemia Protocol Home Med (Patient's Own Medication) 1 tab PO DAILY [facility] Last Admin: 10/28/17 10:36 Dose: 1 tab Home Med (Patient's Own Medication) 1 tab PO DIN [facility] Last Admin: 05/14/18 10:43 Dose: 1 tab Hypromellose (Tears Naturale Forte) 0 ml OU Q6H PRN Fluconazole (Diflucan Iv 200 Mg/100 Ml Ns) 100 mls @ 100 mls/hr IVPB DAILY [facility] PRN Reason: Protocol Last Admin: 10/28/17 10:35 Dose: 100 mls/hr Insulin Aspart (Novolog) 7 unit SC ACHS [facility] Last Admin: 10/29/17 08:02 Dose: Not Given Insulin Detemir (Levemir) 10 unit SC HS [facility] Last Admin: 10/28/17 22:14 Dose: 10 unit Lisinopril (Zestril) 10 mg PO DAILY [facility] Last Admin: 10/28/17 10:35 Dose: 10 mg Metoprolol Succinate (Toprol Xl) 25 mg PO DAILY [facility] Last Admin: 10/28/17 10:35 Dose: 25 mg Raltegravir (Isentress) 400 mg PO BID [facility] PRN Reason: Protocol Last Admin: 10/28/17 18:32 Dose: 400 mg Rosuvastatin Calcium (Crestor) 2.5 mg PO [facility] Last Admin: 10/28/17 22:04 Dose: 2.5 mg Senna/Docusate Sodium (Senokot S 50 Mg-8.6 Mg) 1 tab PO HS [facility] Last Admin: 10/28/17 22:04 Dose: 1 tab Trimethoprim/Sulfamethoxazole (Sulfatrim Pediatric Susp) 20 ml PO MWF [facility] PRN Reason: Protocol Last Admin: 10/28/17 10:41 Dose: 20 ml - Labs Labs: 10/29/17 07:40 10/29/17 07:40 PT 14.9 SECONDS (9.7-12.2) H 10/19/17 18:16 INR 1.4 10/19/17 18:16 APTT 44 SECONDS (21-34) H 10/19/17 18:16 Assessment and Plan (1) V tach Status: Acute (2) Aortic stenosis, moderate Status: Acute (3) Change in mental state Status: Acute (4) Ischemic stroke Status: Acute Attending/Attestation - Attestation I have personally seen and examined this patient.: Yes I have fully participated in the care of the patient.: Yes I have reviewed all pertinent clinical information, including history, physical exam and plan: Yes Notes (Text): 10/29/17 08:39 daughter concerned and requesting to have inpt stress testing
[2017-10-28] MEDS: Docusate-Senna 50 mg-8.6 mg Tab PO SCH (22:04)
[2017-10-28] MEDS: Rosuvastatin Calcium 2.5 mg Tab PO SCH (22:04)
[2017-10-28] MEDS: Insulin Detemir 100 units/ml Vial (Levemir) SC SCH (22:14)
--- NOTE | 2017-10-28 22:38 | CP.PCM.PN ---
Subjective - Date & Time of Evaluation Date of Evaluation: 10/28/17 Time of Evaluation: 22:38 - Subjective Subjective: afebrile. drowsy but arousable. opens eyes but no eye contact. NO ACUTE EVENTS OVERNIGHT NEUROLOGY / CARDIOLOGY F/U NOTED DAUGHTER AT BEDSIDE. Objective - Vital Signs/Intake and Output Vital Signs (last 24 hours): Temp Pulse Resp BP Pulse Ox 97.4 F L 64 20 160/74 H 99 10/28/17 15:00 10/28/17 16:43 10/28/17 15:00 10/28/17 15:00 10/28/17 15:00 Intake and Output: 10/28/17 10/29/17 18:59 06:59 Output Total 300 Balance -300 - Medications Medications: Current Medications Albuterol/Ipratropium (Duoneb 3 Mg/0.5 Mg (3 Ml) Ud) 3 ml IH RQ6 [facility] Last Admin: 10/28/17 19:54 Dose: 3 ml Amantadine HCl (Symmetrel) 100 mg PO DAILY [facility] Last Admin: 10/28/17 10:29 Dose: 100 mg Aspirin (Aspirin Chewable) 81 mg PO DAILY [facility] Last Admin: 10/28/17 10:35 Dose: 81 mg Budesonide (Pulmicort Respules) 0.5 mg IH RBID [facility] Last Admin: 10/28/17 19:54 Dose: 0.5 mg Clopidogrel Bisulfate (Plavix) 75 mg PO DAILY [facility] Last Admin: 10/28/17 10:35 Dose: 75 mg Dextrose (Dextrose 50% Inj) 0 ml IVP .STAT PRN; Protocol PRN Reason: Hypoglycemia Protocol Last Admin: 10/24/17 12:45 Dose: 50 ml Dextrose (Glutose 15) 0 gm PO .ONCE PRN; Protocol PRN Reason: Hypoglycemia Protocol Docusate Sodium (Colace) 200 mg PO BID [facility] Last Admin: 10/28/17 18:22 Dose: 200 mg Famotidine (Pepcid) 20 mg PO DAILY [facility] Last Admin: 10/28/17 10:35 Dose: 20 mg Gentamicin Sulfate (Gentamicin 0.1%) 0 gm TOP DAILY [facility] Last Admin: 10/28/17 10:41 Dose: 1 applic Glucagon (Glucagen Diagnostic Kit) 0 mg IM .STAT PRN; Protocol PRN Reason: Hypoglycemia Protocol Home Med (Patient's Own Medication) 1 tab PO DAILY [facility] Last Admin: 10/28/17 10:36 Dose: 1 tab Home Med (Patient's Own Medication) 1 tab PO DIN [facility] Last Admin: 10/26/17 10:43 Dose: 1 tab Hypromellose (Tears Naturale Forte) 0 ml OU Q6H PRN Fluconazole (Diflucan Iv 200 Mg/100 Ml Ns) 100 mls @ 100 mls/hr IVPB DAILY [facility] PRN Reason: Protocol Last Admin: 10/28/17 10:35 Dose: 100 mls/hr Insulin Aspart (Novolog) 7 unit SC ACHS [facility] Last Admin: 10/28/17 22:16 Dose: Not Given Insulin Detemir (Levemir) 10 unit SC HS [facility] Last Admin: 10/28/17 22:14 Dose: 10 unit Lisinopril (Zestril) 10 mg PO DAILY [facility] Last Admin: 10/28/17 10:35 Dose: 10 mg Metoprolol Succinate (Toprol Xl) 25 mg PO DAILY [facility] Last Admin: 10/28/17 10:35 Dose: 25 mg Raltegravir (Isentress) 400 mg PO BID [facility] PRN Reason: Protocol Last Admin: 10/28/17 18:32 Dose: 400 mg Rosuvastatin Calcium (Crestor) 2.5 mg PO HS [facility] Last Admin: 10/28/17 22:04 Dose: 2.5 mg Senna/Docusate Sodium (Senokot S 50 Mg-8.6 Mg) 1 tab PO HS [facility] Last Admin: 10/28/17 22:04 Dose: 1 tab Trimethoprim/Sulfamethoxazole (Sulfatrim Pediatric Susp) 20 ml PO MWF [facility] PRN Reason: Protocol Last Admin: 10/28/17 10:41 Dose: 20 ml - Labs Labs: 10/24/17 07:43 10/24/17 07:43 PT 14.9 SECONDS (9.7-12.2) H 10/19/17 18:16 INR 1.4 10/19/17 18:16 APTT 44 SECONDS (21-34) H 10/19/17 18:16 - Constitutional Appears: No Acute Distress - Head Exam Head Exam: NORMAL INSPECTION - Eye Exam Eye Exam: PERRL - ENT Exam ENT Exam: Normal Oropharynx (ORAL CANDIDIASIS) - Neck Exam Neck Exam: Normal Inspection. absent: Lymphadenopathy - Respiratory Exam Respiratory Exam: Decreased Breath Sounds - Cardiovascular Exam Cardiovascular Exam: REGULAR RHYTHM, +S1, +S2 - GI/Abdominal Exam GI & Abdominal Exam: Soft, Normal Bowel Sounds - Extremities Exam Extremities Exam: Normal Capillary Refill. absent: Calf Tenderness, Pedal Edema - Neurological Exam Neurological Exam: Altered (LT SIDED WEAKNESS/ LT FACIAL DROOP), Awake - Psychiatric Exam Psychiatric exam: Flat Affect - Skin Skin Exam: Warm Assessment and Plan (1) HIV positive Assessment & Plan: CONTINUE HAART RX F/U GENOTYPE HIV FOR RESISTANCE Status: Acute (2) Oral pharyngeal candidiasis Assessment & Plan: ON IV DIFLUCAN 200MG IV OD Q 24HRLY 10/25/17. Status: Acute (3) Ischemic stroke Status: Acute (4) Cardiac arrhythmia Status: Acute
[2017-10-29] MEDS: Albuterol-Ipratrop 3 mg / 0.5 (3 ml) UD IH SCH ×3 (01:28→13:08)
[2017-10-29] MEDS: Budesonide 0.5 mg/2 ml Inhal Susp UD IH SCH ×2 (07:19→19:39)
--- NOTE | 2017-10-29 07:26 | PN ---
DATE: 10/27/2017 SUBJECTIVE: The patient is a 77-year-old male. The patient was seen and examined at bedside on 10/27/2017. The patient was seen and examined, looking comfortable. Daughter, son, and [id number] were sitting at the bedside. Also sleepy, arousable, follows simple commands, then will go back to sleep. Daughter has multiple questions, all answered. She is waiting a call from the automobile parker because the patient has history of arrhythmias. No fever, no chills. No hematuria or hematochezia. PHYSICAL EXAMINATION: VITAL SIGNS: Temperature 97.9, pulse 60, respiratory rate 20, blood pressure 122/65, pulse oximetry 97%. HEENT: Head: Normocephalic, atraumatic. Eyes: PERRLA. Extraocular movements intact. Conjunctivae clear. Nose patent. Mucous membranes moist. NECK: Supple. No carotid bruits. No JVD or thyromegaly. CHEST: Bilaterally symmetrical. HEART: S1 and S2 positive. LUNGS: Clear to auscultation. ABDOMEN: Soft. Bowel sounds present. No organomegaly. EXTREMITIES: No edema, no cyanosis. NEUROLOGIC: The patient is sleepy, arousable. Follows simple commands. MEDICATIONS: DuoNeb, Ecotrin, Pulmicort, Plavix, dextrose, glucose, Colace, Pepcid. LABORATORY DATA: White blood cells 6.2, hemoglobin 12.3, hematocrit 36.1, platelets 282. Sodium 141, potassium 3.9, BUN 8, creatinine 0.9, glucose 131. ASSESSMENT AND PLAN: Mr. Candelario Aj is a 77-year-old male with human immunodeficiency virus positive, oropharyngeal candidiasis, ischemic stroke, cardiac arrhythmias. ID is on the case. Continue on human immunodeficiency virus medications and antibiotics. Neurologist is on the case. Suggesting physical therapy, rehab. History of ventricular tachycardia, aortic stenosis moderate, change of mental status. Gastrointestinal and deep venous thrombosis prophylaxis. Repeat labs. We will follow. Natali Garcia MD
--- NOTE | 2017-10-29 07:46 | PN ---
DATE: 10/28/2017 SUBJECTIVE: The patient was seen and examined at bedside, sitting on the chair, has his lunch with himself. Looks different person. No nausea, vomiting or diarrhea. No hematuria or hematochezia. No swelling of the legs. PHYSICAL EXAMINATION: VITAL SIGNS: Temperature 97.5, pulse 60, respiratory rate 17, blood pressure 119/65, pulse oximetry 100%. HEENT: Head: Normocephalic, atraumatic. Eyes: PERRLA. Extraocular muscles intact. Conjunctivae clear. Nose patent. Mucous membranes moist. NECK: Supple. No carotid bruits. No JVD or thyromegaly. CHEST: Bilaterally symmetrical. HEART: S1 and S2 positive. LUNGS: Clear to auscultation. ABDOMEN: Soft. Bowel sounds positive. No organomegaly. EXTREMITIES: No edema, no cyanosis. MEDICATIONS: DuoNeb, aspirin, Pulmicort, Plavix, gentamicin, Diflucan, Novolog, Levemir, Zofran. LABORATORY DATA: White blood cells 6.2, hemoglobin 12.2, hematocrit 36.1, platelet 282, sodium 141, potassium 3.9, BUN 8, creatinine noted ASSESSMENT AND PLAN: The patient is a 77-year-old male male with past medical history of human immunodeficiency virus positive, h/o atrial fibrillation, chronic kidney disease, came from the long-term with ams and confusion, found to have right frontal lobe cerebrovascular accident. The patient has ischemic stroke. CT head shows questionable disease. EKG on presentation showed ventricular paced rhythm. 60% to 70%. Discussion with community worker. Gastrointestinal and deep venous thrombosis prophylaxis. Repeat labs. We will follow up. Natali Garcia MD MYRI[facility]
[2017-10-29 07:50] LABS: BASO % 0.9 % (0.0-2.0); EOS # 0.3 K/uL (0.0-0.7); EOS % 6.6 % (0.0-4.0); HEMOGLOBIN 12.3 g/dL (12.0-18.0); LYMPH # 1.1 K/uL (1.0-4.3); LYMPH % 22.4 % (20.0-40.0); MEAN CELL VOLUME 96.7 fL (80.0-94.0); MEAN CORPUSCULAR HEMOGLOBIN 33.7 pg (27.0-31.0); MEAN CORPUSCULAR HGB CONC 34.9 g/dL (33.0-37.0); MEAN PLATELET VOLUME 6.8 fL (7.2-11.7); MONO # 0.8 K/uL (0.0-0.8); MONO % 16.2 % (0.0-10.0); NEUT # 2.5 K/uL (1.8-7.0); NEUT % 53.9 % (50.0-75.0); NRBC % 0.1 % (0.0-2.0); RBC 3.65 Mil/uL (4.40-5.90); RED CELL DISTRIBUTION WIDTH 14.5 % (11.5-14.5); WHITE BLOOD COUNT 4.7 K/uL (4.8-10.8)
[2017-10-29] MEDS: (Novolog) Insulin Aspart, Recombinant 100 u/ml 10 ml vial SC SCH ×4 (08:02→21:04)
[2017-10-29 08:05] LABS: ALBUMIN 3.4 g/dL (3.5-5.0); ALT/SGPT 7 U/L (21-72); AST/SGOT 17 U/L (17-59); BILIRUBIN,DIRECT 0.4 mg/dL (0.0-0.4); BLOOD UREA NITROGEN 14 mg/dL (9-20); CALCIUM 9.1 mg/dl (8.6-10.4); GFR AFRICAN-AMERICAN > 60; GFR NON-AFRICAN AMERICAN > 60
--- NOTE | 2017-10-29 08:14 | CP.PCM.PN ---
Subjective - Date & Time of Evaluation Date of Evaluation: 10/29/17 Time of Evaluation: 08:14 - Subjective Subjective: Mr. Aj was seen and examined at the bedside. He remains non-verbal, but able to open his eyes with both verbal and tactile stimuli. He is not able to maintain his eyes open. He is able to follow few simple commands such as hand squeezing, moving bilateral toes.There is left facial droop and left side weakness. There was no untoward events overnight. Objective - Vital Signs/Intake and Output Vital Signs (last 24 hours): Temp Pulse Resp BP Pulse Ox 97.9 F 60 20 146/69 99 10/29/17 04:20 10/29/17 07:03 10/29/17 04:20 10/29/17 04:20 10/29/17 04:20 Intake and Output: 10/29/17 10/29/17 06:59 18:59 Output Total 1050 Balance -1050 - Medications Medications: Current Medications Albuterol/Ipratropium (Duoneb 3 Mg/0.5 Mg (3 Ml) Ud) 3 ml IH RQ6 [facility] Last Admin: 10/29/17 07:18 Dose: 3 ml Amantadine HCl (Symmetrel) 100 mg PO DAILY [facility] Last Admin: 10/28/17 10:29 Dose: 100 mg Aspirin (Aspirin Chewable) 81 mg PO DAILY [facility] Last Admin: 10/28/17 10:35 Dose: 81 mg Budesonide (Pulmicort Respules) 0.5 mg IH RBID [facility] Last Admin: 10/29/17 07:19 Dose: 0.5 mg Clopidogrel Bisulfate (Plavix) 75 mg PO DAILY [facility] Last Admin: 10/28/17 10:35 Dose: 75 mg Dextrose (Dextrose 50% Inj) 0 ml IVP .STAT PRN; Protocol PRN Reason: Hypoglycemia Protocol Last Admin: 10/24/17 12:45 Dose: 50 ml Dextrose (Glutose 15) 0 gm PO .ONCE PRN; Protocol PRN Reason: Hypoglycemia Protocol Docusate Sodium (Colace) 200 mg PO BID [facility] Last Admin: 10/28/17 18:22 Dose: 200 mg Famotidine (Pepcid) 20 mg PO DAILY [facility] Last Admin: 10/28/17 10:35 Dose: 20 mg Gentamicin Sulfate (Gentamicin 0.1%) 0 gm TOP DAILY [facility] Last Admin: 10/28/17 10:41 Dose: 1 applic Glucagon (Glucagen Diagnostic Kit) 0 mg IM .STAT PRN; Protocol PRN Reason: Hypoglycemia Protocol Home Med (Patient's Own Medication) 1 tab PO DAILY [facility] Last Admin: 10/28/17 10:36 Dose: 1 tab Home Med (Patient's Own Medication) 1 tab PO DIN [facility] Last Admin: 10/26/17 10:43 Dose: 1 tab Hypromellose (Tears Naturale Forte) 0 ml OU Q6H PRN Fluconazole (Diflucan Iv 200 Mg/100 Ml Ns) 100 mls @ 100 mls/hr IVPB DAILY [facility] PRN Reason: Protocol Last Admin: 10/28/17 10:35 Dose: 100 mls/hr Insulin Aspart (Novolog) 7 unit SC ACHS [facility] Last Admin: 10/29/17 08:02 Dose: Not Given Insulin Detemir (Levemir) 10 unit SC HS [facility] Last Admin: 10/28/17 22:14 Dose: 10 unit Lisinopril (Zestril) 10 mg PO DAILY [facility] Last Admin: 10/28/17 10:35 Dose: 10 mg Metoprolol Succinate (Toprol Xl) 25 mg PO DAILY [facility] Last Admin: 10/28/17 10:35 Dose: 25 mg Raltegravir (Isentress) 400 mg PO BID [facility] PRN Reason: Protocol Last Admin: 10/28/17 18:32 Dose: 400 mg Rosuvastatin Calcium (Crestor) 2.5 mg PO [facility] Last Admin: 10/28/17 22:04 Dose: 2.5 mg Senna/Docusate Sodium (Senokot S 50 Mg-8.6 Mg) 1 tab PO HS [facility] Last Admin: 10/28/17 22:04 Dose: 1 tab Trimethoprim/Sulfamethoxazole (Sulfatrim Pediatric Susp) 20 ml PO F COUNT [facility] PRN Reason: Protocol Last Admin: 10/28/17 10:41 Dose: 20 ml - Labs Labs: 10/29/17 07:40 10/29/17 07:40 PT 14.9 SECONDS (9.7-12.2) H 10/19/17 18:16 INR 1.4 10/19/17 18:16 APTT 44 SECONDS (21-34) H 10/19/17 18:16 - Constitutional Appears: No Acute Distress - Head Exam Head Exam: NORMAL INSPECTION - Neurological Exam Neurological Exam: Awake Neuro motor strength exam: Left Upper Extremity: 3, Right Upper Extremity: 4, Left Lower Extremity: 2/1, Right Lower Extremity: 3 Additional comments: Neurological unchanged from previous examination. Assessment and Plan (1) Ischemic stroke Assessment & Plan: Case discussed with Dr. Fraser, continue all current medical, physical, occupational, and speech therapies. Recommend head of bed elevated, increase po intake for hydration, blood pressure, and glycemic control. Status: Acute
--- NOTE | 2017-10-29 08:42 | CP.PCM.PN ---
Subjective - Date & Time of Evaluation Date of Evaluation: 10/29/17 Time of Evaluation: 08:42 - Subjective Subjective: Marlon Will PGY1 Cardiology Progress Note for Dr. Renee Patient was seen and examined at bedside. Patient is able to follow commands, no acute overnight events reported. patient to undergo stress test today. Objective - Vital Signs/Intake and Output Vital Signs (last 24 hours): Temp Pulse Resp BP Pulse Ox 97.9 F 60 20 146/69 99 10/29/17 04:20 10/29/17 07:03 10/29/17 04:20 10/29/17 04:20 10/29/17 04:20 Intake and Output: 10/29/17 10/29/17 06:59 18:59 Output Total 1050 Balance -1050 - Medications Medications: Current Medications Albuterol/Ipratropium (Duoneb 3 Mg/0.5 Mg (3 Ml) Ud) 3 ml IH RQ6 [facility] Last Admin: 10/29/17 07:18 Dose: 3 ml Amantadine HCl (Symmetrel) 100 mg PO DAILY [facility] Last Admin: 10/28/17 10:29 Dose: 100 mg Aspirin (Aspirin Chewable) 81 mg PO DAILY [facility] Last Admin: 10/28/17 10:35 Dose: 81 mg Budesonide (Pulmicort Respules) 0.5 mg IH RBID [facility] Last Admin: 10/29/17 07:19 Dose: 0.5 mg Clopidogrel Bisulfate (Plavix) 75 mg PO DAILY [facility] Last Admin: 10/28/17 10:35 Dose: 75 mg Dextrose (Dextrose 50% Inj) 0 ml IVP .STAT PRN; Protocol PRN Reason: Hypoglycemia Protocol Last Admin: 10/24/17 12:45 Dose: 50 ml Dextrose (Glutose 15) 0 gm PO .ONCE PRN; Protocol PRN Reason: Hypoglycemia Protocol Docusate Sodium (Colace) 200 mg PO BID [facility] Last Admin: 10/28/17 18:22 Dose: 200 mg Famotidine (Pepcid) 20 mg PO DAILY [facility] Last Admin: 10/28/17 10:35 Dose: 20 mg Gentamicin Sulfate (Gentamicin 0.1%) 0 gm TOP DAILY [facility] Last Admin: 10/28/17 10:41 Dose: 1 applic Glucagon (Glucagen Diagnostic Kit) 0 mg IM .STAT PRN; Protocol PRN Reason: Hypoglycemia Protocol Home Med (Patient's Own Medication) 1 tab PO DAILY [facility] Last Admin: 10/28/17 10:36 Dose: 1 tab Home Med (Patient's Own Medication) 1 tab PO DIN [facility] Last Admin: 10/26/17 10:43 Dose: 1 tab Hypromellose (Tears Naturale Forte) 0 ml OU Q6H PRN Fluconazole (Diflucan Iv 200 Mg/100 Ml Ns) 100 mls @ 100 mls/hr IVPB DAILY [facility] PRN Reason: Protocol Last Admin: 10/28/17 10:35 Dose: 100 mls/hr Insulin Aspart (Novolog) 7 unit SC ACHS [facility] Last Admin: 10/29/17 08:02 Dose: Not Given Insulin Detemir (Levemir) 10 unit SC HS [facility] Last Admin: 10/28/17 22:14 Dose: 10 unit Lisinopril (Zestril) 10 mg PO DAILY [facility] Last Admin: 10/28/17 10:35 Dose: 10 mg Metoprolol Succinate (Toprol Xl) 25 mg PO DAILY [facility] Last Admin: 10/28/17 10:35 Dose: 25 mg Raltegravir (Isentress) 400 mg PO BID [facility] PRN Reason: Protocol Last Admin: 10/28/17 18:32 Dose: 400 mg Rosuvastatin Calcium (Crestor) 2.5 mg PO HS [facility] Last Admin: 10/28/17 22:04 Dose: 2.5 mg Senna/Docusate Sodium (Senokot S 50 Mg-8.6 Mg) 1 tab PO HS [facility] Last Admin: 10/28/17 22:04 Dose: 1 tab Trimethoprim/Sulfamethoxazole (Sulfatrim Pediatric Susp) 20 ml PO MWF [facility] PRN Reason: Protocol Last Admin: 10/28/17 10:41 Dose: 20 ml - Labs Labs: 10/29/17 07:40 10/29/17 07:40 PT 14.9 SECONDS (9.7-12.2) H 10/19/17 18:16 INR 1.4 10/19/17 18:16 APTT 44 SECONDS (21-34) H 10/19/17 18:16 - Additional Findings Additional findings: - Constitutional Appears: Well, Non-toxic, No Acute Distress - Head Exam Head Exam: NORMAL INSPECTION - Eye Exam Eye Exam: Normal appearance - ENT Exam ENT Exam: Mucous Membranes Moist - Neck Exam Neck Exam: Normal Inspection - Respiratory Exam Respiratory Exam: NORMAL BREATHING PATTERN. absent: Rales, Rhonchi, Wheezes - Cardiovascular Exam Cardiovascular Exam: RRR, +S1, +S2, Murmur - GI/Abdominal Exam GI & Abdominal Exam: Soft, Normal Bowel Sounds. absent: Distended, Tenderness - Extremities Exam Extremities Exam: Full ROM (improving), Normal Inspection. 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 Ischemic stroke - CT Head showed questionable acute/subacute right parietal infarct and extensive chronic ischemic disease - CTA Head/Neck showed significant stenosis of R carotid bifurcation and moderate @ L carotid bifurcation - EKG on presentation showed ventricular paced rhythm - Echo showed EF 65% w/ mild LVH and pulm htn - Carotid US showed 60-70% stenosis @ right proximal ICA - cont ASA and Plavix - cont Crestor, Toprol and Lisinopril - should f/u outpatient cardiology 2. VTach - planned for stress test today due to daughter's request 3. DM2 - cont Levemir and Novolog - cont strict glycemic control 4. HIV - on HAART rx Patient was evaluated and discussed with Dr. Renee
[2017-10-29] MEDS: Metoprolol Succinate 25 mg XL Tab PO SCH (11:20)
[2017-10-29] MEDS: Emtricitabine/Tenofov Alafenam [Descovy 200-25 Mg Tablet] PO SCH (11:21)
[2017-10-29] MEDS: Fluconazole IV 200mg/100 ml NS 100 ML IVPB SCH (11:21)
[2017-10-29] MEDS: GENTAMICIN 0.1% TOP SCH (11:21)
[2017-10-29] MEDS: Amantadine 50 mg/5 ml Syrup (473 ml) PO SCH (11:37)
[2017-10-29] MEDS: Insulin Detemir 100 units/ml Vial (Levemir) SC SCH (21:05)
[2017-10-29] MEDS: Docusate-Senna 50 mg-8.6 mg Tab PO SCH (21:16)
[2017-10-29] MEDS: Rosuvastatin Calcium 2.5 mg Tab PO SCH (21:16)
--- NOTE | 2017-10-29 22:31 | CP.PCM.PN ---
Subjective - Date & Time of Evaluation Date of Evaluation: 10/29/17 Time of Evaluation: 22:31 - Subjective Subjective: afebrile. drowsy but arousable. opens eyes but no eye contact. NO ACUTE EVENTS OVERNIGHT s/p stress test today as per daughter request. labs reviewed Objective - Vital Signs/Intake and Output Vital Signs (last 24 hours): Temp Pulse Resp BP Pulse Ox 98 F 60 20 131/68 100 10/29/17 15:38 10/29/17 17:53 10/29/17 15:38 10/29/17 15:38 10/29/17 15:38 Intake and Output: 10/29/17 10/30/17 18:59 06:59 Output Total 400 Balance -400 - Medications Medications: Current Medications Amantadine HCl (Symmetrel) 100 mg PO DAILY [facility] Last Admin: 10/29/17 11:37 Dose: 100 mg Aspirin (Aspirin Chewable) 81 mg PO DAILY [facility] Last Admin: 10/29/17 11:21 Dose: 81 mg Budesonide (Pulmicort Respules) 0.5 mg IH RBID [facility] Last Admin: 10/29/17 19:39 Dose: 0.5 mg Clopidogrel Bisulfate (Plavix) 75 mg PO DAILY [facility] Last Admin: 10/29/17 11:20 Dose: 75 mg Dextrose (Dextrose 50% Inj) 0 ml IVP .STAT PRN; Protocol PRN Reason: Hypoglycemia Protocol Last Admin: 10/24/17 12:45 Dose: 50 ml Dextrose (Glutose 15) 0 gm PO .ONCE PRN; Protocol PRN Reason: Hypoglycemia Protocol Docusate Sodium (Colace) 200 mg PO BID [facility] Last Admin: 10/29/17 17:23 Dose: 200 mg Famotidine (Pepcid) 20 mg PO DAILY [facility] Last Admin: 10/29/17 11:21 Dose: 20 mg Gentamicin Sulfate (Gentamicin 0.1%) 0 gm TOP DAILY [facility] Last Admin: 10/29/17 11:21 Dose: 1 applic Glucagon (Glucagen Diagnostic Kit) 0 mg IM .STAT PRN; Protocol PRN Reason: Hypoglycemia Protocol Home Med (Patient's Own Medication) 1 tab PO DAILY [facility] Last Admin: 10/29/17 11:21 Dose: 1 tab Home Med (Patient's Own Medication) 1 tab PO DIN [facility] Last Admin: 10/26/17 10:43 Dose: 1 tab Hypromellose (Tears Naturale Forte) 0 ml OU Q6H PRN Fluconazole (Diflucan Iv 200 Mg/100 Ml Ns) 100 mls @ 100 mls/hr IVPB DAILY [facility] PRN Reason: Protocol Last Admin: 10/29/17 11:21 Dose: 100 mls/hr Insulin Aspart (Novolog) 7 unit SC ACHS [facility] Last Admin: 10/29/17 21:04 Dose: Not Given Insulin Detemir (Levemir) [address] [facility] Last Admin: 10/29/17 21:05 Dose: Not Given Lisinopril (Zestril) 10 mg PO DAILY [facility] Last Admin: 10/29/17 11:21 Dose: 10 mg Metoprolol Succinate (Toprol Xl) 25 mg PO DAILY [facility] Last Admin: 10/29/17 11:20 Dose: 25 mg Raltegravir (Isentress) 400 mg PO BID [facility] PRN Reason: Protocol Last Admin: 10/29/17 17:24 Dose: 400 mg Rosuvastatin Calcium (Crestor) 2.[address] [facility] Last Admin: 10/29/17 21:16 Dose: 2.5 mg Senna/Docusate Sodium (Senokot S 50 Mg-8.6 Mg) [address] [facility] Last Admin: 10/29/17 21:16 Dose: 1 tab Trimethoprim/Sulfamethoxazole (Sulfatrim Pediatric Susp) 20 ml PO MWF [facility] PRN Reason: Protocol Last Admin: 10/28/17 10:41 Dose: 20 ml - Labs Labs: 10/29/17 07:40 10/29/17 07:40 PT 14.9 SECONDS (9.7-12.2) H 10/19/17 18:16 INR 1.4 10/19/17 18:16 APTT 44 SECONDS (21-34) H 10/19/17 18:16 - Constitutional Appears: No Acute Distress - Head Exam Head Exam: NORMAL INSPECTION - Eye Exam Eye Exam: PERRL - ENT Exam ENT Exam: Normal Oropharynx (+ve oral candidiasis) - Neck Exam Neck Exam: Normal Inspection - Respiratory Exam Respiratory Exam: Decreased Breath Sounds - Cardiovascular Exam Cardiovascular Exam: REGULAR RHYTHM, +S1, +S2 - GI/Abdominal Exam GI & Abdominal Exam: Soft, Normal Bowel Sounds - Extremities Exam Extremities Exam: Normal Capillary Refill. absent: Calf Tenderness, Pedal Edema - Neurological Exam Neurological Exam: Awake - Psychiatric Exam Psychiatric exam: Flat Affect - Skin Skin Exam: Normal Color, Warm Assessment and Plan (1) HIV positive Assessment & Plan: continue HAART RX. ON IV FLUCONAZOLE DECREASE DOSE 100MG OD DAILY X 8 DAYS MORE. CONTINUE po bactrim suspension 20ml po mwf for PCJ PROPHYLAXIS. F/U GENOTYPE HIV TO ADJUST HAART IF NECESSARY. WILL F/U PT WHILE IN HOSPITAL. Status: Acute (2) Oral pharyngeal candidiasis Status: Acute (3) Ischemic stroke Status: Acute (4) Cardiac arrhythmia Assessment & Plan: PER CARDIOLOGY. Status: Acute
--- NOTE | 2017-10-30 07:15 | CP.PCM.PN ---
<Marlon Will - Last Filed: 10/30/17 21:17> Subjective - Date & Time of Evaluation Date of Evaluation: 10/30/17 Time of Evaluation: 07:14 - Subjective Subjective: Marlon Will PGY1 Cardiology Progress Note for Dr. Renee Patient was seen and examined at bedside. Patient is able to follow commands but remains non-verbal, no acute overnight events reported. patient seems to be clinically improving . Objective - Vital Signs/Intake and Output Vital Signs (last 24 hours): Temp Pulse Resp BP Pulse Ox 98.0 F 57 L 20 143/64 100 10/29/17 23:25 10/29/17 23:30 10/29/17 23:25 10/29/17 23:25 10/29/17 23:25 Intake and Output: 10/30/17 10/30/17 06:59 18:59 Output Total 300 Balance -300 - Medications Medications: Current Medications Amantadine HCl (Symmetrel) 100 mg PO DAILY [facility] Aspirin (Aspirin Chewable) 81 mg PO DAILY [facility] Last Admin: 10/29/17 11:21 Dose: 81 mg Budesonide (Pulmicort Respules) 0.5 mg IH RBID [facility] Last Admin: 10/29/17 19:39 Dose: 0.5 mg Clopidogrel Bisulfate (Plavix) 75 mg PO DAILY [facility] Last Admin: 10/29/17 11:20 Dose: 75 mg Dextrose (Dextrose 50% Inj) 0 ml IVP .STAT PRN; Protocol PRN Reason: Hypoglycemia Protocol Last Admin: 10/24/17 12:45 Dose: 50 ml Dextrose (Glutose 15) 0 gm PO .ONCE PRN; Protocol PRN Reason: Hypoglycemia Protocol Docusate Sodium (Colace) 200 mg PO BID [facility] Last Admin: 10/29/17 17:23 Dose: 200 mg Famotidine (Pepcid) 20 mg PO DAILY [facility] Last Admin: 10/29/17 11:21 Dose: 20 mg Gentamicin Sulfate (Gentamicin 0.1%) 0 gm TOP DAILY [facility] Last Admin: 10/29/17 11:21 Dose: 1 applic Glucagon (Glucagen Diagnostic Kit) 0 mg IM .STAT PRN; Protocol PRN Reason: Hypoglycemia Protocol Home Med (Patient's Own Medication) 1 tab PO DAILY [facility] Last Admin: 10/29/17 11:21 Dose: 1 tab Home Med (Patient's Own Medication) 1 tab PO DIN [facility] Last Admin: 10/26/17 10:43 Dose: 1 tab Hypromellose (Tears Naturale Forte) 0 ml OU Q6H PRN Fluconazole (Diflucan Iv 200 Mg/100 Ml Ns) 100 mls @ 100 mls/hr IVPB DAILY [facility] PRN Reason: Protocol Last Admin: 10/29/17 11:21 Dose: 100 mls/hr Insulin Aspart (Novolog) 7 unit SC ACHS [facility] Last Admin: 10/29/17 21:04 Dose: Not Given Insulin Detemir (Levemir) 10 unit SC HS [facility] Last Admin: 10/29/17 21:05 Dose: Not Given Lisinopril (Zestril) 10 mg PO DAILY [facility] Last Admin: 10/29/17 11:21 Dose: 10 mg Metoprolol Succinate (Toprol Xl) 25 mg PO DAILY [facility] Last Admin: 10/29/17 11:20 Dose: 25 mg Raltegravir (Isentress) 400 mg PO BID [facility] PRN Reason: Protocol Last Admin: 10/29/17 17:24 Dose: 400 mg Rosuvastatin Calcium (Crestor) 2.5 mg PO [facility] Last Admin: 10/29/17 21:16 Dose: 2.5 mg Senna/Docusate Sodium (Senokot S 50 Mg-8.6 Mg) 1 tab PO [facility] Last Admin: 10/29/17 21:16 Dose: 1 tab Trimethoprim/Sulfamethoxazole (Sulfatrim Pediatric Susp) 20 ml PO MWF [facility] PRN Reason: Protocol Last Admin: 10/28/17 10:41 Dose: 20 ml - Labs Labs: 10/29/17 07:40 10/29/17 07:40 PT 14.9 SECONDS (9.7-12.2) H 10/19/17 18:16 INR 1.4 10/19/17 18:16 APTT 44 SECONDS (21-34) H 10/19/17 18:16 - Additional Findings Additional findings: - Constitutional Appears: Well, Non-toxic, No Acute Distress - Head Exam Head Exam: NORMAL INSPECTION - Eye Exam Eye Exam: Normal appearance - ENT Exam ENT Exam: Mucous Membranes Moist - Neck Exam Neck Exam: Normal Inspection - Respiratory Exam Respiratory Exam: NORMAL BREATHING PATTERN. absent: Rales, Rhonchi, Wheezes - Cardiovascular Exam Cardiovascular Exam: RRR, +S1, +S2, Murmur - GI/Abdominal Exam GI & Abdominal Exam: Soft, Normal Bowel Sounds. absent: Distended, Tenderness - Extremities Exam Extremities Exam: Full ROM (improving), Normal Inspection. absent: Pedal Edema - Back Exam Back Exam: NORMAL INSPECTION - Neurological Exam Neurological Exam: Altered, Awake Additional comments: left facial droop and l sided weakness remains non-verbal - Psychiatric Exam Psychiatric exam: Normal Mood - Skin Skin Exam: Warm Assessment and Plan - Assessment and Plan (Free Text) Assessment: 77yo Male with a PMH of HIV, paroxysmal AFib, CKD, CVA, DM2, CHF w/ AICD [facility] for lethargy and confusion found to have right frontal lobe CVA Plan: 1. Ischemic stroke - cont ASA and Plavix - cont Crestor, Toprol and Lisinopril - should f/u outpatient cardiology - stress test showed reversible ischemia in distal LAD territory; will fax results to Dr. Marin, private [facility] - CT Head showed questionable acute/subacute right parietal infarct and extensive chronic ischemic disease - CTA Head/Neck showed significant stenosis of R carotid bifurcation and moderate @ L carotid bifurcation - EKG on presentation showed ventricular paced rhythm - Echo showed EF 65% w/ mild LVH and pulm htn - Carotid US showed 60-70% stenosis @ right proximal ICA 2. VTach - stress test showed reversible ischemia in distal LAD territory; will fax results to Dr. Marin, private [facility] Director 3. DM2 - cont Levemir and Novolog - cont strict glycemic control 4. HIV - on HAART rx Patient was evaluated and discussed with Dr. Renee <Aamir Renee - Last Filed: 11/01/17 15:51> Objective - Vital Signs/Intake and Output Vital Signs (last 24 hours): Temp Pulse Resp BP Pulse Ox 98 F 60 20 130/70 99 10/30/17 16:00 10/30/17 16:00 10/30/17 16:00 10/30/17 16:00 10/30/17 16:00 - Labs Labs: 10/29/17 07:40 10/29/17 07:40 PT 14.9 SECONDS (9.7-12.2) H 10/19/17 18:16 INR 1.4 05/07/18 18:16 APTT 44 SECONDS (21-34) H 10/19/17 18:16 Assessment and Plan (1) V tach Status: Acute (2) Aortic stenosis, moderate Status: Acute (3) Change in mental state Status: Acute (4) Ischemic stroke Status: Acute Attending/Attestation - Attestation I have personally seen and examined this patient.: Yes I have fully participated in the care of the patient.: Yes I have reviewed all pertinent clinical information, including history, physical exam and plan: Yes
[2017-10-30] MEDS: Budesonide 0.5 mg/2 ml Inhal Susp UD IH SCH ×2 (07:25→19:16)
--- NOTE | 2017-10-30 07:27 | PN ---
DATE: 10/29/2017 SUBJECTIVE: The patient is a 77-year-old male. The patient was seen and examined at the bedside on 10/29/2017, sitting on the chair, looking comfortable. He is ready for stress test according to Dr. Aamir Renee. Stress test is negative. Actually, he cleared the patient for discharge. No nausea, vomiting, or diarrhea. No hematuria or hematochezia. No swelling of the leg. No chest pain or palpitation. PHYSICAL EXAMINATION: VITAL SIGNS: Temperature 97.9, pulse 63, respiratory rate 20, blood pressure 147/69, pulse oxymetry 99%. HEENT: Head: Normocephalic, atraumatic. Eyes: PERRLA. Extraocular muscles intact. Conjunctivae clear. Nose patent. NECK: Supple. No carotid bruits. No JVD or thyromegaly. CHEST: Bilaterally symmetrical. HEART: S1, S2 positive. LUNGS: Clear to auscultation. ABDOMEN: Soft. Bowel sounds present. No organomegaly. EXTREMITIES: No edema. No cyanosis. NEUROLOGIC: The patient is awake, alert, follows simple commands. MEDICATIONS: DuoNeb, Amantadine, aspirin, Pulmicort, Plavix, Colace, gentamicin, ____, GlucaGen, fluconazole, Crestor. LABORATORY DATA: White blood cells 4.7, hemoglobin 12.3, hematocrit 35.3, platelets 308, sodium 143, potassium 4.1, BUN 14, creatinine 1.1, glucose 109. ASSESSMENT AND PLAN: Mr. Candelario Garcia with leukopenia, human immunodeficiency virus positive, paroxysmal atrial fibrillation, chronic kidney disease), cerebrovascular accident, diabetes mellitus, congestive heart failure, had automated implantable cardioverter defibrillator, who came in [facility] with lethargy and confusion, found to have right frontal lobe cerebrovascular accident, ischemic stroke. CT of head showed questionable acute and subacute right parietal infarction and ____ chronic, but ischemic changes. CT of the head showed significant stenosis of right carotid, bifurcation with moderate left carotid bifurcation. EKG on presentation showed ventricular paced rhythm. Echocardiogram shows 65% ejection fraction. Carotid ultrasound shows 60% to 70% stenosis of the right proximal right coronary artery. Continue aspirin and Plavix. Continue Crestor. Also has hypercholesterolemia. Continue human immunodeficiency virus medication. He has history of ventricular tachycardia. Planned for stress test because of daughter's request. Exercise stress test was done and discussion done with Dr. Aamir Renee. Stress test is negative and currently he has cleared the patient for discharge. Diabetes mellitus, continue Levemir, strict glycemic control. For human immunodeficiency virus, the patient is on Highly Active AntiRetroviral Treatment medication and discussion done with nurse practitioner and her it software developer. According to the it software developer, the patient is ready to go back to rehab and we will follow up his wound. Natali Garcia MD
--- NOTE | 2017-10-30 07:31 | CARD ---
APPROVED REPORT Protocol: PHARMACOLOGICAL STRESS Test Type: LEXISCAN Test Indications: ACUTE STROKE Medications: LIST SCAN Medical History: ACUTE STROKE Target HR: 141 bpm Resting ECG: left bundle branch block Resting Heart Rate: 60 bpm Resting Blood Pressure: 116/60mmHg submaximum (85%): 120 bpm TEST SUMMARY [id number]/60.0. INFUSIONDOSE 100:300.00.01.060/.0. [id number]/60.0. PROCEDURE Pharmacologic stress testing was performed using 0.4mg per 5ml of regadenoson given intravenously over 7-10 seconds. POST EXERCISE Reason for Termination: Protocol Completed Target HR: No Max HR: 60 bpm 43% of Maximum Predicted HR: 141 bpm Exercise duration: 00:30 min:sec, 0 Stage Exercise capacity: 1.0METs Max Blood Pressure: 116/60mmHg Blood Pressure response to exercise: N/A Heart Rate response to exercise: N/A Chest Pain: No, none Angina index: 0 Arrhythmia: No, none ST Change: No, none Deviation: 0 mm EXAM: Myocardial Perfusion STRESS/REST Imaging Protocol The imaging protocol used to acquire images was Stress Tc-99m/rest Tc-99m 1 day Stress Spect myocardial perfusion imaging was performed in supine position 45 minutes following the injection of 12.3 mCi of Tc-99 Myoview. Gated Rest Spect was performed 55 minutes after intravenous 32.4 mci Tc-99 Myoview injection. The images were gated to evaluate regional wall motion and calculate ventricular ejection fraction.Images were reconstructed using backfilter projection method in short horizontal and verticle long axis. Spect slices were generated. RESTING DATA EDV72.78xhWO3.70L/min ESV27.00mlMyocardial Xfrk126.00g Av. Heart Rate60.00bpm EF63.00% STRESS DATA EDV69.30xoAF4.80L/min ESV23.00mlMyocardial Cysm592.00g EF67.00% Regional WT score at stress:0.00 Regional WM score at stress:0.00 Summed WT score at stress:9.00 Av. Heart Rate60.00bpmSummed WM score at stress:6.00 Study quality was good. Left Ventricular size was Normal at Rest and Stress. Lung uptake was Normal. Left Ventricular ejection fraction is 62%. The rest and stress images show normal perfusion, normal contraction and thickening. LV Perfusion 1 Perfusion Defect Location: apical anterior Perfusion Defect Size: Small (1-2 segments) Perfusion Defect Severity: Severe Type of Perfusion Defect: Reversible TCD/TID: No LV Perf. Quant 17 Seg. SSS3.00 17 Seg. SRS2.00 17 Seg. SDS3.00 Stress Defect Extent (% LAD)0.00Rest Defect Extent (% LAD)0.00Rev. Defect Extent (% LAD)0.00 Stress Defect Extent (% LCX)23.80Rest Defect Extent (% LCX)0.00Rev. Defect Extent (% LCX)23.80 Stress Defect Extent (% RCA)0.00Rest Defect Extent (% RCA)0.00Rev. Defect Extent (% RCA)0.00 Stress Defect Extent (% JOHN)7.20Rest Defect Extent (% JOHN)1.50Rev. Defect Extent (% JOHN)7.20 Other Information Quality:Good Overall Exercise Capacity: n/a IMPRESSION Abnormal Myocardial Perfusion exercise stress study Metabolism/Perfusion Reversible/Irreversible: Small sized severe intensity severe anteroapical defect Conclusion 1. - Evidence of reversible ischemia in distal LAD territory 2. - Normal LVEF 3. - Clinical correlation suggested for further evaluation and treatment
[2017-10-30] MEDS: (Novolog) Insulin Aspart, Recombinant 100 u/ml 10 ml vial SC SCH ×3 (08:03→17:09)
[2017-10-30 08:08] VITALS: PULSE 60
--- NOTE | 2017-10-30 08:23 | CP.PCM.PN ---
Subjective - Date & Time of Evaluation Date of Evaluation: 10/30/17 Time of Evaluation: 08:23 - Subjective Subjective: Mr. Aj was seen and examined at the bedside. He remains non-verbal, but more awake to both verbal and tactile stimuli. He is not able to maintain his eyes open. He is able to follow few simple commands such as hand squeezing, moving bilateral toes.There is left facial droop and left side weakness. There was no untoward events overnight. Objective - Vital Signs/Intake and Output Vital Signs (last 24 hours): Temp Pulse Resp BP Pulse Ox 97.5 F L 60 18 161/74 H 97 10/30/17 07:45 10/30/17 07:45 10/30/17 07:45 10/30/17 07:45 10/30/17 07:45 Intake and Output: 10/30/17 10/30/17 06:59 18:59 Output Total 300 Balance -300 - Medications Medications: Current Medications Amantadine HCl (Symmetrel) 100 mg PO DAILY [facility] Aspirin (Aspirin Chewable) 81 mg PO DAILY [facility] Last Admin: 10/29/17 11:21 Dose: 81 mg Budesonide (Pulmicort Respules) 0.5 mg IH RBID [facility] Last Admin: 10/30/17 07:25 Dose: 0.5 mg Clopidogrel Bisulfate (Plavix) 75 mg PO DAILY [facility] Last Admin: 10/29/17 11:20 Dose: 75 mg Dextrose (Dextrose 50% Inj) 0 ml IVP .STAT PRN; Protocol PRN Reason: Hypoglycemia Protocol Last Admin: 10/24/17 12:45 Dose: 50 ml Dextrose (Glutose 15) 0 gm PO .ONCE PRN; Protocol PRN Reason: Hypoglycemia Protocol Docusate Sodium (Colace) 200 mg PO BID [facility] Last Admin: 10/29/17 17:23 Dose: 200 mg Famotidine (Pepcid) 20 mg PO DAILY [facility] Last Admin: 10/29/17 11:21 Dose: 20 mg Gentamicin Sulfate (Gentamicin 0.1%) 0 gm TOP DAILY [facility] Last Admin: 10/29/17 11:21 Dose: 1 applic Glucagon (Glucagen Diagnostic Kit) 0 mg IM .STAT PRN; Protocol PRN Reason: Hypoglycemia Protocol Home Med (Patient's Own Medication) 1 tab PO DAILY [facility] Last Admin: 10/29/17 11:21 Dose: 1 tab Home Med (Patient's Own Medication) 1 tab PO DIN [facility] Last Admin: 10/26/17 10:43 Dose: 1 tab Hypromellose (Tears Naturale Forte) 0 ml OU Q6H PRN Fluconazole (Diflucan Iv 200 Mg/100 Ml Ns) 100 mls @ 100 mls/hr IVPB DAILY [facility] PRN Reason: Protocol Last Admin: 10/29/17 11:21 Dose: 100 mls/hr Insulin Aspart (Novolog) 7 unit SC ACHS [facility] Last Admin: 10/30/17 08:03 Dose: Not Given Insulin Detemir (Levemir) 10 unit SC HS [facility] Last Admin: 10/29/17 21:05 Dose: Not Given Lisinopril (Zestril) 10 mg PO DAILY [facility] Last Admin: 10/29/17 11:21 Dose: 10 mg Metoprolol Succinate (Toprol Xl) 25 mg PO DAILY [facility] Last Admin: 10/29/17 11:20 Dose: 25 mg Raltegravir (Isentress) 400 mg PO BID [facility] PRN Reason: Protocol Last Admin: 10/29/17 17:24 Dose: 400 mg Rosuvastatin Calcium (Crestor) 2.5 mg PO HS [facility] Last Admin: 10/29/17 21:16 Dose: 2.5 mg Senna/Docusate Sodium (Senokot S 50 Mg-8.6 Mg) 1 tab PO HS [facility] Last Admin: 10/29/17 21:16 Dose: 1 tab Trimethoprim/Sulfamethoxazole (Sulfatrim Pediatric Susp) 20 ml PO MWF [facility] PRN Reason: Protocol Last Admin: 10/28/17 10:41 Dose: 20 ml - Labs Labs: 10/29/17 07:40 10/29/17 07:40 PT 14.9 SECONDS (9.7-12.2) H 10/19/17 18:16 INR 1.4 10/19/17 18:16 APTT 44 SECONDS (21-34) H 10/19/17 18:16 - Constitutional Appears: No Acute Distress - Head Exam Head Exam: NORMAL INSPECTION - Neurological Exam Neurological Exam: Awake Neuro motor strength exam: Left Upper Extremity: 3, Right Upper Extremity: 4, Left Lower Extremity: 2/1, Right Lower Extremity: 2/1 Additional comments: Neurological unchanged from previous examination. Assessment and Plan (1) Ischemic stroke Assessment & Plan: Case discussed with Dr. Fraser, continue all current medical, physical, occupational, and speech therapies. Recommend head of bed elevated, increase po intake for hydration, blood pressure, and glycemic control. Status: Acute
[2017-10-30] MEDS: Metoprolol Succinate 25 mg XL Tab PO SCH (09:16)
[2017-10-30] MEDS: Emtricitabine/Tenofov Alafenam [Descovy 200-25 Mg Tablet] PO SCH (09:17)
[2017-10-30] MEDS: Fluconazole IV 200mg/100 ml NS 100 ML IVPB SCH (09:17)
[2017-10-30] MEDS: GENTAMICIN 0.1% TOP SCH (09:26)
[2017-10-30] MEDS ORDERED: Amantadine 50 mg/5 ml Syrup (473 ml) PO SCH (10:00)
[2017-10-30] MEDS: Tmp-Smz 200-40mg/5 ml Oral Sus(120 ml) PO SCH (10:20)
--- NOTE | 2017-10-30 14:57 | CP.PCM.PN ---
Subjective - Date & Time of Evaluation Date of Evaluation: 10/30/17 Time of Evaluation: 14:57 - Subjective Subjective: PT CLEARED FOR D/C BACK TO [facility] TODAY PER DR. ELENA AND CONSULTS. PT TO F/U WITH DR. RAMIREZ IN THE OFFICE WITHIN 1-2 WEEKS, BUT WILL NEED A REPEAT HEAD CT DONE BEFORE THE OFFICE APPT. DISCUSSED AT GREAT LENGTH WITH PT'S DAUGHTER A D/C PLAN, WELL FOLLOW UP AND MEDICATIONS. SW TO ARRANGE TRANSPORTATION BACK TO [facility] FOR THIS EVENING. WILL GO UNDER THE SERVICE OF DR. ELENA AT [facility]. NO FURTHER ORDERS. -PLACE UNDER THE SERVICE OF DR. FUNG WHILE AT [facility]---CALL UPON ARRIVAL FOR ADMITTING ORDERS AND TO NOTIFY OF MR. CONNOR' ARRIVAL TO THE FACILITY. -PLEASE ARRANGE FOR MR. CONNOR TO FOLLOW UP WITH DR. RAMIREZ (NEUROVASCULAR INTERVENTIONAL RADIOLOGIST) IN THE OFFICE WITHIN 1-2 WEEKS (APPOINTMENT SHOULD BE ARRANGED FOR AT LEAST 11/06/17). PER DR. RAMIREZ'S RECOMMENDATION, ARRANGE FOR A REPEAT CAT SCAN OF THE HEAD TO BE DONE BEFORE THE FOLLOW UP APPOINTMENT!! DR. FUNG MAY ORDER THIS TO BE DONE. -CONTINUE ALL MEDICATIONS ACCORDING TO THE MED REC FORM---CHANGES CAN BE MADE BY DR. FUNG IF NEEDED. -CONTINUE DIFLUCAN 200 MG PO DAILY X7 DAYS (START ON 10/31/17 AND LAST DOSE TO BE GIVEN ON 11/06/17). -CONTINUE BOTH ELIQUIS AND PLAVIX EXACTLY ORDERED (SEE MED REC FORM) AND PER DR. العراقي'S RECOMMENDATIONS. DO NOT GIVE ASPIRIN! -PHYSICAL THERAPY, OCCUPATIONAL THERAPY, AND SPEECH THERAPY DAILY TOLERATED. -PLEASE FOLLOW ASPIRATION PRECAUTIONS PER FACILITY PROTOCOL!! MAINTAIN HEAD OF BED ELEVATED DURING MEALS AND ASSIST WITH ALL MEALS; PLEASE FEED MR. CONNOR EACH MEAL OVER A PERIOD OF 30 MINUTES TO REDUCE ASPIRATION RISK. Objective - Vital Signs/Intake and Output Vital Signs (last 24 hours): Temp Pulse Resp BP Pulse Ox 97.5 F L 60 18 161/74 H 97 10/30/17 07:45 10/30/17 07:45 10/30/17 07:45 10/30/17 07:45 10/30/17 07:45 Intake and Output: 05/18/18 05/18/18 06:59 18:59 Intake Total 400 Output Total 300 500 Balance -300 -100 - Medications Medications: Current Medications Amantadine HCl (Symmetrel) 100 mg PO DAILY [facility] Last Admin: 10/30/17 10:20 Dose: 100 mg Aspirin (Aspirin Chewable) 81 mg PO DAILY [facility] Last Admin: 10/30/17 09:15 Dose: 81 mg Budesonide (Pulmicort Respules) 0.5 mg IH RBID [facility] Last Admin: 10/30/17 07:25 Dose: 0.5 mg Clopidogrel Bisulfate (Plavix) 75 mg PO DAILY [facility] Last Admin: 10/30/17 09:16 Dose: 75 mg Dextrose (Dextrose 50% Inj) 0 ml IVP .STAT PRN; Protocol PRN Reason: Hypoglycemia Protocol Last Admin: 10/24/17 12:45 Dose: 50 ml Dextrose (Glutose 15) 0 gm PO .ONCE PRN; Protocol PRN Reason: Hypoglycemia Protocol Docusate Sodium (Colace) 200 mg PO BID [facility] Last Admin: 10/30/17 09:16 Dose: 200 mg Famotidine (Pepcid) 20 mg PO DAILY [facility] Last Admin: 10/30/17 09:15 Dose: 20 mg Fluconazole (Diflucan) 200 mg PO DAILY [facility] Gentamicin Sulfate (Gentamicin 0.1%) 0 gm TOP DAILY [facility] Last Admin: 10/30/17 09:26 Dose: 1 applic Glucagon (Glucagen Diagnostic Kit) 0 mg IM .STAT PRN; Protocol PRN Reason: Hypoglycemia Protocol Home Med (Patient's Own Medication) 1 tab PO DAILY [facility] Last Admin: 10/30/17 09:17 Dose: 1 tab Home Med (Patient's Own Medication) 1 tab PO DIN [facility] Last Admin: 10/26/17 10:43 Dose: 1 tab Hypromellose (Tears Naturale Forte) 0 ml OU Q6H PRN Insulin Aspart (Novolog) 7 unit SC ACHS [facility] Last Admin: 10/30/17 12:15 Dose: 7 unit Insulin Detemir (Levemir) 10 unit SC HS [facility] Last Admin: 10/29/17 21:05 Dose: Not Given Lisinopril (Zestril) 10 mg PO DAILY [facility] Last Admin: 10/30/17 09:18 Dose: 10 mg Metoprolol Succinate (Toprol Xl) 25 mg PO DAILY [facility] Last Admin: 10/30/17 09:16 Dose: 25 mg Raltegravir (Isentress) 400 mg PO BID [facility] PRN Reason: Protocol Last Admin: 10/30/17 09:16 Dose: 400 mg Rosuvastatin Calcium (Crestor) 2.5 mg PO HS [facility] Last Admin: 10/29/17 21:16 Dose: 2.5 mg Senna/Docusate Sodium (Senokot S 50 Mg-8.6 Mg) 1 tab PO HS [facility] Last Admin: 10/29/17 21:16 Dose: 1 tab Trimethoprim/Sulfamethoxazole (Sulfatrim Pediatric Susp) 20 ml PO F [facility] PRN Reason: Protocol Last Admin: 10/30/17 10:20 Dose: 20 ml - Labs Labs: 10/29/17 07:40 10/29/17 07:40 PT 14.9 SECONDS (9.7-12.2) H 10/19/17 18:16 INR 1.4 10/19/17 18:16 APTT 44 SECONDS (21-34) H 10/19/17 18:16
[2017-10-30 17:20] VITALS: BP 130/70; RESP 20; TEMP 98; O2SAT 99
== END 2017-10-30 19:53 | disposition home or self-care (01) | DRG 64 ==
LOC: C.ER 17:47 → C.9E 19:11 → C.6T 19:11
PROVIDERS: ADMIT Internal Medicine; ATTEND Internal Medicine
DX: I63.511 Cerebral infarction due to unspecified occlusion or stenosis of right middle cerebral artery (principal); B20 Human immunodeficiency virus [HIV] disease; B37.0 Candidal stomatitis; I13.0 Hypertensive heart and chronic kidney disease with heart failure and stage 1 through stage 4 chronic kidney disease, or unspecified chronic kidney disease; I47.2 Ventricular tachycardia; I50.32 Chronic diastolic (congestive) heart failure; R47.01 Aphasia; D64.9 Anemia, unspecified; D72.819 Decreased white blood cell count, unspecified; E11.22 Type 2 diabetes mellitus with diabetic chronic kidney disease; E11.65 Type 2 diabetes mellitus with hyperglycemia; E78.00 Pure hypercholesterolemia, unspecified; E86.0 Dehydration; E87.8 Other disorders of electrolyte and fluid balance, not elsewhere classified; I35.0 Nonrheumatic aortic (valve) stenosis; I65.23 Occlusion and stenosis of bilateral carotid arteries; J45.909 Unspecified asthma, uncomplicated; K59.00 Constipation, unspecified; N18.9 Chronic kidney disease, unspecified; I69.354 Hemiplegia and hemiparesis following cerebral infarction affecting left non-dominant side; I48.0 Paroxysmal atrial fibrillation; I27.20 Pulmonary hypertension, unspecified; R29.810 Facial weakness; Z79.02 Long term (current) use of antithrombotics/antiplatelets; Z79.82 Long term (current) use of aspirin; Z79.899 Other long term (current) drug therapy; Z95.810 Presence of automatic (implantable) cardiac defibrillator

== ENCOUNTER 2017-11-05 09:53 | Inpatient (IN) | payer MEDICARE, MEDICAID ==
[2017-11-05 09:56] VITALS: BMI 29.1
[2017-11-05] MEDS ORDERED: Sodium Chloride 0.9% 1,000 ML IV ONE ×2 (10:03→11:23)
[2017-11-05] MEDS ORDERED: Naloxone 0.4 mg/ml Inj (Adult) IV ONE (10:06)
[2017-11-05 10:36] LABS: INR 1.8
[2017-11-05 10:41] LABS: BASO % 0.2 % (0.0-2.0); EOS % 0.1 % (0.0-4.0); HEMOGLOBIN 12.3 g/dL (12.0-18.0); LYMPH # 1.7 K/uL (1.0-4.3); LYMPH % 9.4 % (20.0-40.0); MEAN CELL VOLUME 96.9 fL (80.0-94.0); MEAN CORPUSCULAR HEMOGLOBIN 33.1 pg (27.0-31.0); MEAN CORPUSCULAR HGB CONC 34.2 g/dL (33.0-37.0); MEAN PLATELET VOLUME 7.4 fL (7.2-11.7); MONO # 2.2 K/uL (0.0-0.8); MONO % 12.4 % (0.0-10.0); NEUT # 13.8 K/uL (1.8-7.0); NEUT % 77.9 % (50.0-75.0); PLATELET COUNT 335 K/uL (130-400); RED CELL DISTRIBUTION WIDTH 14.2 % (11.5-14.5); WHITE BLOOD COUNT 17.8 K/uL (4.8-10.8)
[2017-11-05 10:51] LABS: TROPONIN I 0.111 ng/mL (0.00-0.120)
[2017-11-05 10:52] LABS: LYMPHOCYTE 4 % (20-40); MONOCYTE 4 % (0-10); NEUTROPHIL 92 % (50-75); PLATELET ESTIMATE NORMAL (NORMAL); TOTAL CELLS COUNTED 100
[2017-11-05] MEDS ORDERED: Piperacillin/Tazobact 3.375 gm 100 ML IV STA (10:53)
[2017-11-05] MEDS ORDERED: Vancomycin 1 GM 1 GM/250 ML BAG IV SCH (11:00)
[2017-11-05 11:02] LABS: VENOUS BLOOD GAS BASE EXCESS -0.8 mmol/L (0.0-2.0); VENOUS BLOOD GAS PCO2 47 mmHg (40-60); VENOUS BLOOD GAS PO2 23 mm/Hg (30-55); VENOUS BLOOD PH 7.34 (7.32-7.43)
[2017-11-05 11:05] LABS: ALB/GLOB RATIO 0.9 (1.0-2.1); ALBUMIN 3.4 g/dL (3.5-5.0); CALCIUM 8.8 mg/dl (8.6-10.4)
--- NOTE | 2017-11-05 11:12 | C.PDOC ---
History Of Present Illness 77 y/o male sent to the ED from [facility] for decreased mental status and hypotension. Patient was last known normal at 8pm last night. 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 Patient was hospitalized inpatient here from the -30 of October. Time Seen by Provider: 11/05/17 10:03 Chief Complaint (Nursing): Altered Mental Status History Per: Patient History/Exam Limitations: Clinical Condition (altered mental status) Onset Of Symptoms: Cannot Confirm Onset Past Medical History Reviewed: Historical Data, Nursing Documentation, Vital Signs Vital Signs: Last Vital Signs Temp 98.5 F 11/05/17 09:56 Pulse 60 11/05/17 12:18 Resp 20 11/05/17 12:18 BP 101/50 L 11/05/17 12:18 Pulse Ox 100 11/05/17 12:18 - Medical History PMH: Asthma, CAD, CVA, HIV, HTN, TIA Denies: Chronic Kidney Disease Family History: States: No Known Family Hx - Social History Hx Alcohol Use: No Hx Substance Use: No - Immunization History Hx Tetanus Toxoid Vaccination: No (unknown) Hx Influenza Vaccination: No (unknown) Hx Pneumococcal Vaccination: No (unknown) Review Of Systems Review Of Systems: ROS cannot be obtained secondary to pt's inabilty to answer questions. Physical Exam - Physical Exam Appears: Other (Awake, disoriented) Skin: Normal Color, Warm, Dry Head: Atraumatic, Normacephalic, Other (Mild right facial droop) Eye(s): bilateral: Other (Pinpoint pupils) Nose: Normal Oral Mucosa: Moist Chest: Symmetrical, Other (Pacer in left chest) Cardiovascular: Rhythm Regular, No Murmur Respiratory: Normal Breath Sounds, No Accessory Muscle Use, No Rales, No Rhonchi , No Wheezing Gastrointestinal/Abdominal: Soft, No Tenderness, No Distention Extremity: Other (2x2 cm sacral decubitus, stage 2) Extremity: Bilateral: Atraumatic, Normal ROM Pulses: Left Dorsalis Pedis: Normal, Right Dorsalis Pedis: Normal ED Course And Treatment - Laboratory Results Result Diagrams: 11/05/17 10:14 11/05/17 10:14 Lab Interpretation: Abnormal (UA 1200 WBC's) ECG Rhythm: V Paced ECG Interpretation: Normal Rate From EC O2 Sat by Pulse Oximetry: 100 (RA) Pulse Ox Interpretation: Normal - Radiology CXR: Interpreted by Me CXR Interpretation: Yes: No Acute Disease Progress Note: agressive fluid hydration, Kelly Cast Reevaluation Time: 12:38 Reassessment Condition: Improved - Physician Consult Information Outcome Of Conversation: 1130: d/w Dr. Garcia- prior adm MD , defers adm to [employer]. 1150: d/w Dr. Sullivan- Medicine [employer] ok to admit to ICU. 1215: d /w Dr. Cates- ICU, ok to adm to ICU Critical Care Time - Critical Care Note Total Time (in mins): 90 Documented critical care: time excludes all time spent performing seperately billable procedures. NIHSS Stroke Scale - Date/Time Evaluation Performed Date Performed: 11/05/17 Time Performed: 10:00 When Was NIHSS Performed: Baseline - How Severe is the Stoke Level of Consciousness: 2=Obtunded LOC to Questions: 2=Neither correct LOC to commands: 2=Neither correct Best Gaze: 0=Normal Visual: 0=No visual loss Facial: 1=Minor asymmetry (R sided (from prior CVA)) Motor Arm - Left: 0=No drift Motor Arm - Right: 0=No drift Motor Leg - Left: 0=No drift Motor Leg - Right: 0=No drift Limb Ataxia: 0=Absent Sensory: 0=Normal Best Language: 3=Mute Dysarthia: 0=Normal articulation Extinction & Inattention (Neglect): 0=Normal, no object Score: 10 Severity Of Stroke: 5-15= Moderate Stroke rTPA Inclusion/Exclusion - Refusal of Treatment Patient Refused Treatment: No - Inclusion Criteria for Altepase Patient is 18 years or Older: Yes Clinical DX Ischemic Stroke Cause Neurological Deficit: Yes Time of Onset Established Less Than 270 Mins Before TX Begin: No Risk/Benefit Discussed With Patient/Family Member Present: No - Exclusion Criteria for Altepase Uncontrolled Hypertension at Time of TX (SBP>185 or DBP>110): No Less Than 3 Months Had a Recent: Intracranial, Stroke History of: Intracranial hemorrhage Active Internal Bleeding: No Known Bleeding Diathesis: No Evidence of an Intracranial Hemorrhage: No Evidence Major Acute Infarct w/ Signs Greater Than 1/3 MCA: No Suspicion of Subarachnoid Bleed on PreTX Eval(CT: neg bleed): No - Warning to TPA With Conditions Condition: Rapid Improvement, Age Greater Than 75 years Additional Condition (For 3-4.5 Hour Window): Prior Stroke and Diabetes Medical Decision Making Medical Decision Making: Time: 10:03 Initial Plan: --CT Head --EKG --VBG --Blood work --Urinalysis --Chest x-ray --IV fluids --Narcan 0.4 mg IV --IV Vanco and Zosyn --Reassessment 1100: DDX: initially pinpoint pupils and diminished MS, consider narcotics OD, but no narcan available- pending pyuria, leukocytosis 18K, + L shift- c/w Sepsis- Vanco/zosyn empirically, much improved with IVF, MS back to baseline. ? extension of R frontal CVA ffrom 10/19/17- CT pending. 1230: hemorrhagic conversion of R frontal CVA urosepsis Adm to ICU Disposition Doctor Will See Patient In The: Hospital Counseled Patient/Family Regarding: Studies Performed, Diagnosis - Disposition Disposition: HOSPITALIZED Disposition Time: 12:40 Condition: GUARDED Forms: [facility] ([place]) - Clinical Impression Clinical Impression: Change in mental state, Stroke, hemorrhagic, Sepsis, UTI (urinary tract infection) - Scribe Statement The provider has reviewed the documentation as recorded by the Teri Ryder Provider Attestation: All medical record entries made by the Scribe were at my direction and personally dictated by me. I have reviewed the chart and agree that the record accurately reflects my personal performance of the history, physical exam, medical decision making, and the department course for this patient. I have also personally directed, reviewed, and agree with the discharge instructions and disposition.
[2017-11-05] MEDS ORDERED: Piperacillin/Tazobact 3.375 gm 100 ML IVPB ONE (11:18)
[2017-11-05] MEDS ORDERED: Vancomycin 1 gm/NS 200 ml 1 GM/200 ML BAG IVPB STA (11:27)
[2017-11-05 11:31] LABS: SQUAMOUS EPITHIAL 1 /hpf (0-5); URINE BACTERIA OCC (<OCC); URINE BILIRUBIN NEGATIVE (NEGATIVE); URINE BLOOD 2+ (NEGATIVE); URINE CLARITY Turbid (Clear); URINE COLOR Amber (YELLOW); URINE GLUCOSE (UA) NORMAL (Normal); URINE LEUKOCYTE ESTERASE 3+ Leu/uL (Negative); URINE PROTEIN 2+ mg/dL (NEGATIVE); URINE UROBILINOGEN NORMAL mg/dL (0.2-1.0); WBC CLUMPS FEW /hpf
[2017-11-05 11:51] LABS: BARBITURATES, UR NEGATIVE (NEGATIVE); BENZODIAZEPINES, UR NEGATIVE (NEGATIVE); OPIATES, UR NEGATIVE (NEGATIVE); PHENCYCLIDINE, UR NEGATIVE (NEGATIVE)
--- NOTE | 2017-11-05 11:55 | CT ---
PROCEDURE: CT HEAD WITHOUT CONTRAST. HISTORY: decreased MD, R frontal CVA 10/19/17 COMPARISON: Unenhanced head CT 10/20/2017. TECHNIQUE: Axial computed tomography images were obtained through the head/brain without intravenous contrast. Radiation dose: Total exam DLP = 880.37 mGy-cm. This CT exam was performed using one or more of the following dose reduction techniques: Automated exposure control, adjustment of the mA and/or kV according to patient size, and/or use of iterative reconstruction technique. FINDINGS: HEMORRHAGE: Trace intraparenchymal hemorrhage is identified in the right frontal lobe representing hemorrhagic conversion of an ischemic infarction. No significant mass effect at this time, other than the ischemic infarct related edema. A round cyst chronic calcification is reiterated at the left parietal lobe in periventricular white matter. No suspicious extra-axial collections identified this time with bilateral basal ganglia and by thalamic chronic lacune infarcts again evident. Age-related degenerative changes are reiterated comprised of diffuse cerebral atrophy chronic microangiopathy with microangiopathy also involving the freddie. Left cerebellar chronic lacune reiterated with the right cerebellum unremarkable. BRAIN: No mass effect or edema. No atrophy or chronic microvascular ischemic changes. VENTRICLES: Unremarkable. No hydrocephalus. CALVARIUM: Unremarkable. PARANASAL SINUSES: Unremarkable as visualized. No significant inflammatory changes. MASTOID AIR CELLS: Unremarkable as visualized. No inflammatory changes. OTHER FINDINGS: None. IMPRESSION: 1. Hemorrhagic conversion is minimal at a right frontal lobe prior subacute infarct now chronic. The previous infarcted territory does not appear simply increase in overall volume to suggest new infarct surrounding prior initial infarct. MRI can be performed for further characterization nevertheless. Follow-up CT advised as well. 2. Age-related neuro degenerative changes reiterated not only throughout the cerebrum but also the brainstem with chronic lacune noted at the left cerebellum as well as bilateral basal ganglia and thalami. 3. Large calcification reiterated left parietal periventricular white matter.
--- NOTE | 2017-11-05 12:46 | RAD ---
PROCEDURE: CHEST RADIOGRAPH, 1 VIEW HISTORY: SOB COMPARISON: Portable chest 10/19/2017. FINDINGS: LUNGS: Images captured and apical lordotic type pattern which may be accentuating the medial right epicardial fat. An infiltrate is not identified left or suggested at the right definitively. Clinically correlate further. PLEURA: No pneumothorax or pleural fluid seen. CARDIOVASCULAR: Cardiac silhouette appears stable with sternotomy wires again noted as well as unipolar permanent pacemaker. No pulmonary vascular congestion. OSSEOUS STRUCTURES: No significant abnormalities. VISUALIZED UPPER ABDOMEN: Normal. OTHER FINDINGS: None. IMPRESSION: No definite acute infiltrate or pleural effusion bilaterally. Unipolar permanent cardiac pacemaker and stable cardiac silhouette noted with no pulmonary vascular congestion at this time.
--- NOTE | 2017-11-05 14:24 | CP.PCM.HP ---
History of Present Illness - History of Present Illness History of Present Illness: COMPREHENSIVE HISTORY & PHYSICAL EXAM HPI Patient is admitted from [place] with altered mental status progressing from the previous day. Patient was admitted on the beginning part of this month in [facility] with stroke involving the right frontal lobe with weakness on the left side. Patient did not have major recovery during the hospitalization. As per the neurology evaluation last admission prior to discharge patient was still minimally responsive to verbal stimuli and no movement on the left side of the body. In the detention patient was found to be more unresponsive and was brought to [facility] ER. In the ER the CAT scan showed now hemorrhagic old infarct in the right frontal lobe with no progression in the size of the infarct suggesting no new infarct. During the last admission patient was found to have atrial fibrillation and was given to anticoagulation. Plavix and Eliquis. Patient also had IV Myoview Lexiscan which showed mild ischemia in the distal LAD territory with normal left medical ejection fraction. Patient also has a history of HIV and was treated by ID on IV antibiotics. Patient was IV fluconazole in the detention. PAST HIST. PERSONAL HIST: Smoking. N Alcohol. N Allergy N Travel_- . FAMILY HIST : ROS : Patient not responsive to questions P/E: Constitutional: Appears stated age and in no apparent distress. Head: Normocephalic. Ears: External ear canals patent without inflammation. Tympanic membranes intact with normal light reflex and landmark. Eyes: Pupils are central, bilaterally equal, symmetrical and reacts to light with normal movements and no icterus or pallor. Nose: External nares are patent. Mucosa is pink Mouth-Throat: Good general appearance and condition. No post-pharyngeal/oropharyngeal erythema and tonsillar hypertrophy. Good dental hygiene. Neck-Lymphatic: Neck is supple with normal ROM, no thyromegaly, lymph nodes or masses. JVD is normal with no carotid bruit. Lungs: Clear to percussion and auscultation with bilateral normal air entry. Cardiovascular: S1 and S2 are normal with no murmurs, gallops and rub. GI Exam: No hepatomegaly. Abdomen is soft and non-tender. No Organomegaly , masses or hernias are evident and bowel sounds are normal and active. Neurology . Left facial droop with no power on the left upper and lower extremity. Reflexes are exaggerated on the left side and plantar left going up Musculoskeletal: No tender spots with normal curvature of the spine with no swelling or restricted ROM of the small and large joints. Extremities: Homans sign absent. Intact pulses with no pitting edema, calf tenderness or skin color changes. Skin: No rash, eruptions or abnormal skin pigmentation LAB/RADIOLOGY: ASSESMENT : Hemorrhagic infarct in the left frontal lobe with progressive change of mental status History of atrial fibrillation who was on anticoagulation History of right carotid artery stenosis 60-70% History of HIV Leukocytosis; rule out sepsis PLAN: See orders Present on Admission - Present on Admission Any Indicators Present on Admission: No Past Patient History - Past Medical History & Family History Past Medical History?: Yes - Past Social History Smoking Status: Never Smoked - CARDIAC Hx Hypertension: Yes - PULMONARY Hx Asthma: Yes - NEUROLOGICAL Hx Transient Ischemic Attacks (TIA): Yes - HEENT Hx HEENT Problems: No - RENAL Hx Chronic Kidney Disease: No - ENDOCRINE/METABOLIC Hx Endocrine Disorders: Yes Hx Diabetes Mellitus Type 2: Yes - HEMATOLOGICAL/ONCOLOGICAL Hx Human Immunodeficiency Virus (HIV): Yes - INTEGUMENTARY Hx Dermatological Problems: Yes Other/Comment: Stage 2 ulcer- R buttock 2 cm x 1.5 cm - MUSCULOSKELETAL/RHEUMATOLOGICAL Hx Musculoskeletal Disorders: No Hx Falls: No - GASTROINTESTINAL Hx Gastrointestinal Disorders: No - GENITOURINARY/GYNECOLOGICAL Hx Genitourinary Disorders: No - PSYCHIATRIC Hx Substance Use: No - ANESTHESIA Hx Anesthesia: No Meds Allergies/Adverse Reactions: Allergies Allergy/AdvReac Type Severity Reaction Status Date / Time No Known Allergies Allergy Verified 10/19/17 17:52 Results - Vital Signs Recent Vital Signs: Last Vital Signs Temp 97.5 F L 11/05/17 12:48 Pulse 60 11/05/17 14:03 Resp 20 11/05/17 14:03 BP 114/54 L 11/05/17 14:03 Pulse Ox 100 11/05/17 14:03 - Labs Result Diagrams: 11/05/17 10:14 11/05/17 10:14 Labs: Laboratory Results - last 24 hr 11/05/17 11/05/17 11/05/17 09:58 10:14 10:14 WBC 17.8 H D RBC 3.70 L Hgb 12.3 Hct 35.8 MCV 96.9 H MCH 33.1 H MCHC 34.2 RDW 14.2 Plt Count 335 MPV 7.4 Neut % (Auto) 77.9 H Lymph % (Auto) 9.4 L Zapata % (Auto) 12.4 H Eos % (Auto) 0.1 Baso % (Auto) 0.2 Neut # (Auto) 13.8 H Lymph # (Auto) 1.7 Zapata # (Auto) 2.2 H Eos # (Auto) 0.0 Baso # (Auto) 0.0 Neutrophils % (Manual) 92 H Lymphocytes % (Manual) 4 L Monocytes % (Manual) 4 Platelet Estimate Normal RBC Morphology Normal PT 20.0 H INR 1.8 APTT 35 H pO2 VBG pH VBG pCO2 VBG HCO3 VBG Total CO2 VBG O2 Sat (Calc) VBG Base Excess VBG Potassium Glucose Lactate Sodium Potassium Chloride Carbon Dioxide Anion Gap BUN Creatinine Est GFR ( Amer) Est GFR (Non-Af Amer) POC Glucose (mg/dL) 196 H Random Glucose Calcium Total Bilirubin AST ALT Alkaline Phosphatase Troponin I NT-Pro-B Natriuret Pep Total Protein Albumin Globulin Albumin/Globulin Ratio Venous Blood Potassium Urine Color Urine Clarity Urine pH Ur Specific [place] Urine Protein Urine Glucose (UA) Urine Ketones Urine Blood Urine Nitrate Urine Bilirubin Urine Urobilinogen Ur Leukocyte Esterase Urine WBC (Auto) Urine RBC (Auto) Urine WBC Clumps (Auto) Ur Squamous Epith Cells Urine Bacteria Urine Opiates Screen Urine Methadone Screen Ur Barbiturates Screen Ur Phencyclidine Scrn Ur Amphetamines Screen U Benzodiazepines Scrn U Oth Cocaine Metabols U Cannabinoids Screen 11/05/17 11/05/17 11/05/17 10:14 10:58 11:18 WBC RBC Hgb Hct MCV MCH MCHC RDW Plt Count MPV Neut % (Auto) Lymph % (Auto) Z[place] % (Auto) Eos % (Auto) Baso % (Auto) Neut # (Auto) Lymph # (Auto) Zapata # (Auto) Eos # (Auto) Baso # (Auto) Neutrophils % (Manual) Lymphocytes % (Manual) Monocytes % (Manual) Platelet Estimate RBC Morphology PT INR APTT pO2 23 L VBG pH 7.34 VBG pCO2 47 VBG HCO3 22.6 VBG Total CO2 26.8 VBG O2 Sat (Calc) 44.7 VBG Base Excess -0.8 L VBG Potassium 5.8 H Glucose 171 H Lactate 1.8 Sodium 138 136.0 Potassium 5.8 H Chloride 102 104.0 Carbon Dioxide 25 Anion Gap 16 BUN 28 H Creatinine 2.5 H Est GFR ( Amer) 30 Est GFR (Non-Af Amer) 25 POC Glucose (mg/dL) Random Glucose 182 H Calcium 8.8 Total Bilirubin 0.6 AST 29 ALT 16 L D Alkaline Phosphatase 87 Troponin I 0.1110 NT-Pro-B Natriuret Pep 7450 H Total Protein 7.1 Albumin 3.4 L Globulin 3.7 Albumin/Globulin Ratio 0.9 L Venous Blood Potassium 5.8 H Urine Color Urine Clarity Urine pH Ur Specific [place] Urine Protein Urine Glucose (UA) Urine Ketones Urine Blood Urine Nitrate Urine Bilirubin Urine Urobilinogen Ur Leukocyte Esterase Urine WBC (Auto) Urine RBC (Auto) Urine WBC Clumps (Auto) Ur Squamous Epith Cells Urine Bacteria Urine Opiates Screen Negative Urine Methadone Screen Negative Ur Barbiturates Screen Negative Ur Phencyclidine Scrn Negative Ur Amphetamines Screen Negative U Benzodiazepines Scrn Negative U Oth Cocaine Metabols Negative U Cannabinoids Screen Negative 11/05/17 11:18 WBC RBC Hgb Hct MCV MCH MCHC RDW Plt Count MPV Neut % (Auto) Lymph % (Auto) Z[place]ata % (Auto) Eos % (Auto) Baso % (Auto) Neut # (Auto) Lymph # (Auto) [place] # (Auto) Eos # (Auto) Baso # (Auto) Neutrophils % (Manual) Lymphocytes % (Manual) Monocytes % (Manual) Platelet Estimate RBC Morphology PT INR APTT pO2 VBG pH VBG pCO2 VBG HCO3 VBG Total CO2 VBG O2 Sat (Calc) VBG Base Excess VBG Potassium Glucose Lactate Sodium Potassium Chloride Carbon Dioxide Anion Gap BUN Creatinine Est GFR ( Amer) Est GFR (Non-Af Amer) POC Glucose (mg/dL) Random Glucose Calcium Total Bilirubin AST ALT Alkaline Phosphatase Troponin I NT-Pro-B Natriuret Pep Total Protein Albumin Globulin Albumin/Globulin Ratio Venous Blood Potassium Urine Color Sarai Urine Clarity Turbid Urine pH 5.0 Ur Specific [place] 1.012 Urine Protein 2+ H Urine Glucose (UA) Normal Urine Ketones Negative Urine Blood 2+ H Urine Nitrate Negative Urine Bilirubin Negative Urine Urobilinogen Normal Ur Leukocyte Esterase 3+ H Urine WBC (Auto) 1259 H Urine RBC (Auto) 49 H Urine WBC Clumps (Auto) Few H Ur Squamous Epith Cells 1 Urine Bacteria Occ H Urine Opiates Screen Urine Methadone Screen Ur Barbiturates Screen Ur Phencyclidine Scrn Ur Amphetamines Screen U Benzodiazepines Scrn U Oth Cocaine Metabols U Cannabinoids Screen
[2017-11-05] MEDS: (Novolin R) Insulin Human Regular 100 units/ml vial SC SCH ×2 (16:19→22:03)
[2017-11-05] MEDS: Sodium Chloride 0.9% 1,000 ML IV SCH (16:20)
[2017-11-05] MEDS ORDERED: Emtricitabine-Tenofovir 200 mg-300 mg Tab PO SCH (17:10)
[2017-11-05] MEDS ORDERED: EDURANT 25 MG PO SCH (18:00)
--- NOTE | 2017-11-05 18:03 | CP.PCM.CON ---
History of Present Illness - History of Present Illness History of Present Illness: Mr. Aj is a 77-year-old man with a past medical history of HIV, HTN, multiple prior ischemic strokes, on Eliquis and Plavix, who was discharged after his most recent right frontal/parietal ischemic stroke, with residual left sided weakness. He was at his shelter and was found to be unresponsive earlier today. He was brought in to the ED and a CT scan of the head was done that showed some concern for hemorrhage in the previously infarcted area. This was not a hematoma, there was no midline shift, there was no evidence of active hemorrhage. It was confined to the sulcal area and mostly cortical layers. The patient is not back to his baseline. However, he does appear to have an active infection. ID was also consulted. Review of Systems - Review of Systems All systems: reviewed and no additional remarkable complaints except Past Patient History - Past Medical History & Family History Past Medical History?: Yes - Past Social History Smoking Status: Never Smoked - CARDIAC Hx Cardiac Disorders: Yes Hx Hypertension: Yes - PULMONARY Hx Respiratory Disorders: Yes Hx Asthma: Yes - NEUROLOGICAL Hx Neurological Disorder: Yes HX Cerebrovascular Accident: Yes Hx Transient Ischemic Attacks (TIA): Yes Other/Comment: right frontal CVA 10/19/17 - HEENT Hx HEENT Problems: No - RENAL Hx Chronic Kidney Disease: No - ENDOCRINE/METABOLIC Hx Endocrine Disorders: Yes Hx Diabetes Mellitus Type 2: Yes - HEMATOLOGICAL/ONCOLOGICAL Hx Blood Disorders: Yes Hx Human Immunodeficiency Virus (HIV): Yes - INTEGUMENTARY Hx Dermatological Problems: Yes Other/Comment: Stage 2 ulcer- R buttock 2 cm x 1.5 cm. right cheek scab - MUSCULOSKELETAL/RHEUMATOLOGICAL Hx Falls: No - GASTROINTESTINAL Hx Gastrointestinal Disorders: No - GENITOURINARY/GYNECOLOGICAL Hx Genitourinary Disorders: No - PSYCHIATRIC Hx Psychophysiologic Disorder: No Hx Substance Use: No - SURGICAL HISTORY Hx Surgeries: No - ANESTHESIA Hx Anesthesia: No Meds Allergies/Adverse Reactions: Allergies Allergy/AdvReac Type Severity Reaction Status Date / Time No Known Allergies Allergy Verified 10/19/17 17:52 - Medications Medications: Current Medications Emtricitabine/Tenofovir (Truvada 200 Mg-300 Mg) 1 tab PO DAILY [facility] PRN Reason: Protocol Gentamicin Sulfate (Gentamicin 0.1%) 0 gm TOP TID [facility] Home Med (Patient's Own Medication) 1 tab PO DAILY [facility] Sodium Chloride (Sodium Chloride 0.9%) 1,000 mls @ 100 mls/hr IV .Q10H MARZENA Last Admin: 11/05/17 16:20 Dose: 100 mls/hr Insulin Human Regular (Novolin R) 0 unit SC ACHS MARZENA PRN Reason: Protocol Last Admin: 11/05/17 16:19 Dose: Not Given Raltegravir (Isentress) 400 mg PO BID MARZENA PRN Reason: Protocol Physical Exam - Constitutional Appears: Confused - Neurological Exam Neurological exam: Altered, CN II-XII Intact Additional comments: Reflexes brisk on the left. Baseline left side weakness 3/5. Right side is 4/ 5. Follows simple commands. Sensation is diminished on the left as compared with the right. Results - Vital Signs Recent Vital Signs: Last Vital Signs Temp 97.8 F 11/05/17 16:00 Pulse 60 11/05/17 17:30 Resp 10 L 11/05/17 17:30 BP 136/53 L 11/05/17 17:29 Pulse Ox 100 11/05/17 17:30 - Labs Result Diagrams: 11/05/17 10:14 11/05/17 10:14 Labs: Laboratory Results - last 24 hr 11/05/17 11/05/17 11/05/17 09:58 10:14 10:14 WBC 17.8 H D RBC 3.70 L Hgb 12.3 Hct 35.8 MCV 96.9 H MCH 33.1 H MCHC 34.2 RDW 14.2 Plt Count 335 MPV 7.4 Neut % (Auto) 77.9 H Lymph % (Auto) 9.4 L Cannon % (Auto) 12.4 H Eos % (Auto) 0.1 Baso % (Auto) 0.2 Neut # (Auto) 13.8 H Lymph # (Auto) 1.7 Cannon # (Auto) 2.2 H Eos # (Auto) 0.0 Baso # (Auto) 0.0 Neutrophils % (Manual) 92 H Lymphocytes % (Manual) 4 L Monocytes % (Manual) 4 Platelet Estimate Normal RBC Morphology Normal PT 20.0 H INR 1.8 APTT 35 H pO2 VBG pH VBG pCO2 VBG HCO3 VBG Total CO2 VBG O2 Sat (Calc) VBG Base Excess VBG Potassium Glucose Lactate Sodium Potassium Chloride Carbon Dioxide Anion Gap BUN Creatinine Est GFR ( Amer) Est GFR (Non-Af Amer) POC Glucose (mg/dL) 196 H Random Glucose Calcium Total Bilirubin AST ALT Alkaline Phosphatase Troponin I NT-Pro-B Natriuret Pep Total Protein Albumin Globulin Albumin/Globulin Ratio Venous Blood Potassium Urine Color Urine Clarity Urine pH Ur Specific [place] Urine Protein Urine Glucose (UA) Urine Ketones Urine Blood Urine Nitrate Urine Bilirubin Urine Urobilinogen Ur Leukocyte Esterase Urine WBC (Auto) Urine RBC (Auto) Urine WBC Clumps (Auto) Ur Squamous Epith Cells Urine Bacteria Urine Opiates Screen Urine Methadone Screen Ur Barbiturates Screen Ur Phencyclidine Scrn Ur Amphetamines Screen U Benzodiazepines Scrn U Oth Cocaine Metabols U Cannabinoids Screen 11/05/17 11/05/17 11/05/17 10:14 10:58 11:18 WBC RBC Hgb Hct MCV MCH MCHC RDW Plt Count MPV Neut % (Auto) Lymph % (Auto) Cannon % (Auto) Eos % (Auto) Baso % (Auto) Neut # (Auto) Lymph # (Auto) Cannon # (Auto) Eos # (Auto) Baso # (Auto) Neutrophils % (Manual) Lymphocytes % (Manual) Monocytes % (Manual) Platelet Estimate RBC Morphology PT INR APTT pO2 23 L VBG pH 7.34 VBG pCO2 47 VBG HCO3 22.6 VBG Total CO2 26.8 VBG O2 Sat (Calc) 44.7 VBG Base Excess -0.8 L VBG Potassium 5.8 H Glucose 171 H Lactate 1.8 Sodium 138 136.0 Potassium 5.8 H Chloride 102 104.0 Carbon Dioxide 25 Anion Gap 16 BUN 28 H Creatinine 2.5 H Est GFR ( Amer) 30 Est GFR (Non-Af Amer) 25 POC Glucose (mg/dL) Random Glucose 182 H Calcium 8.8 Total Bilirubin 0.6 AST 29 ALT 16 L D Alkaline Phosphatase 87 Troponin I 0.1110 NT-Pro-B Natriuret Pep 7450 H Total Protein 7.1 Albumin 3.4 L Globulin 3.7 Albumin/Globulin Ratio 0.9 L Venous Blood Potassium 5.8 H Urine Color Urine Clarity Urine pH Ur Specific [place] Urine Protein Urine Glucose (UA) Urine Ketones Urine Blood Urine Nitrate Urine Bilirubin Urine Urobilinogen Ur Leukocyte Esterase Urine WBC (Auto) Urine RBC (Auto) Urine WBC Clumps (Auto) Ur Squamous Epith Cells Urine Bacteria Urine Opiates Screen Negative Urine Methadone Screen Negative Ur Barbiturates Screen Negative Ur Phencyclidine Scrn Negative Ur Amphetamines Screen Negative U Benzodiazepines Scrn Negative U Oth Cocaine Metabols Negative U Cannabinoids Screen Negative 11/05/17 11/05/17 11:18 16:05 WBC RBC Hgb Hct MCV MCH MCHC RDW Plt Count MPV Neut % (Auto) Lymph % (Auto) Cannon % (Auto) Eos % (Auto) Baso % (Auto) Neut # (Auto) Lymph # (Auto) Cannon # (Auto) Eos # (Auto) Baso # (Auto) Neutrophils % (Manual) Lymphocytes % (Manual) Monocytes % (Manual) Platelet Estimate RBC Morphology PT INR APTT pO2 VBG pH VBG pCO2 VBG HCO3 VBG Total CO2 VBG O2 Sat (Calc) VBG Base Excess VBG Potassium Glucose Lactate Sodium Potassium Chloride Carbon Dioxide Anion Gap BUN Creatinine Est GFR ( Amer) Est GFR (Non-Af Amer) POC Glucose (mg/dL) 164 H Random Glucose Calcium Total Bilirubin AST ALT Alkaline Phosphatase Troponin I NT-Pro-B Natriuret Pep Total Protein Albumin Globulin Albumin/Globulin Ratio Venous Blood Potassium Urine Color Sarai Urine Clarity Turbid Urine pH 5.0 Ur Specific [place] 1.012 Urine Protein 2+ H Urine Glucose (UA) Normal Urine Ketones Negative Urine Blood 2+ H Urine Nitrate Negative Urine Bilirubin Negative Urine Urobilinogen Normal Ur Leukocyte Esterase 3+ H Urine WBC (Auto) 1259 H Urine RBC (Auto) 49 H Urine WBC Clumps (Auto) Few H Ur Squamous Epith Cells 1 Urine Bacteria Occ H Urine Opiates Screen Urine Methadone Screen Ur Barbiturates Screen Ur Phencyclidine Scrn Ur Amphetamines Screen U Benzodiazepines Scrn U Oth Cocaine Metabols U Cannabinoids Screen Assessment & Plan (1) Stroke, hemorrhagic Assessment and Plan: This is likely not a hemorrhagic conversion, but likely just laminar necrosis and some vascular injury without hematoma. I do not recommend reversing antiplatelet agents or Eliquis. I recommend repeating the CT scan in the morning and if still stable, we can resume the Eliquis and Plavix for secondary stroke prevention. Status: Acute Priority: High (2) Change in mental state Assessment and Plan: The patient has an active infection, so the change in mental status could be toxic-metabolic encephalopathy. However, the fact that he is back to baseline now could mean that he had a complex partial seizure in the setting of the previous injury from the strokes. I recommend an EEG for further evaluation. Thank you. Status: Acute Priority: High
[2017-11-05] MEDS: GENTAMICIN 0.1% TOP SCH (18:41)
--- NOTE | 2017-11-05 20:05 | CP.CCUPN ---
CCU Subjective - Physician Review Events Since Last Encounter (Free Text): 11/05/17 20:01 The Patient was seen and examined at the bedside, Medical records reviewed, and management issues were discussed and formulated with the house staff. Events reviewed 77 Y/O M with PMHx of Asthma, CAD, CVA, HIV, HTN, TIA, Atrial fibrillation on anticoagulation, right carotid artery stenosis and right frontal CVA on with resulting right facial droop. Who to the ED from half-way for decreased mental status and hypotension, Patient was last known normal at 8pm last night. Patient was hospitalized inpatient at [facility] from the -30 of October for the acute CVA. He appears to at his baseline mental status and no new neuro deficits Admitted to the ICU for management of severe sepsis with Puyurea CCU Objective - Vital Signs / Intake & Output Vital Signs (Last 4 hours): Vital Signs Pulse Resp BP Pulse Ox 11/05/17 19:10 64 16 100 11/05/17 19:00 60 19 100 11/05/17 18:50 64 14 100 11/05/17 18:40 60 15 100 11/05/17 18:30 60 25 H 100 11/05/17 18:29 60 17 140/60 100 11/05/17 18:20 60 16 100 11/05/17 18:10 60 14 100 11/05/17 18:00 60 10 L 100 11/05/17 17:50 60 11 L 100 11/05/17 17:40 60 27 H 100 11/05/17 17:30 60 10 L 100 11/05/17 17:29 60 19 136/53 L 100 11/05/17 17:20 60 13 100 11/05/17 17:10 60 8 L 100 11/05/17 17:00 60 20 100 11/05/17 16:50 60 8 L 100 11/05/17 16:40 60 13 100 11/05/17 16:30 60 17 100 11/05/17 16:29 60 15 126/54 L 100 11/05/17 16:20 60 15 100 11/05/17 16:10 60 19 100 Intake and Output (Last 8hrs): Intake & Output 11/05/17 11/05/17 11/05/17 06:59 14:59 22:59 Intake Total 0 400 Output Total 0 Balance 0 400 Weight 185 lb 10.067 oz Intake: Intake, IV Amount 0 400 Left Antecubital 0 400 Right Antecubital 0 0 Output: Urine 0 Condom 0 - Physical Exam Physical Exam Limitations: Positive for: Altered Mental Status, Clinical Condition Head: Positive for: Atraumatic, Normocephalic. Negative for: Tenderness, Contusion, Swelling, Ecchymosis Extroacular Muscles: Positive for: EOMI Conjunctiva: Positive for: Normal. Negative for: Injected, Icteric Ears: Positive for: Normal Mouth: Positive for: Moist Mucous Membranes, Dry Pharnyx: Positive for: Normal. Negative for: ERYTHEMA Nose (External): Positive for: Atraumatic. Negative for: Abrasion Neck: Positive for: Normal Range of Motion, Trachea Midline. Negative for: Meningeal Signs, MIDLINE TENDERNESS, Paraspinal Tenderness, JVD, Lymphadenopathy , Bruit, Other Respiratory/Chest: Positive for: Clear to Auscultation, Decreased Breath Sounds. Negative for: Respiratory Distress, Accessory Muscle Use, Wheezes, Rhonchi Cardiovascular: Positive for: Regular Rate and Rhythm, Normal S1, S2, Peripheal Pulses Present. Negative for: Murmurs, Irregular Rhythm Neurological: Positive for: Normal Sensory Function. Negative for: Motor Func Grossly Intact (Baseline left side weakness 3/5. Right side is 4/5.) Psychiatric: Positive for: Alert, Normal Concentration, Normal Affect - Medications Active Medications: Active Medications Generic Name Dose Route Start Last Admin Trade Name Freq PRN Reason Stop Dose Admin Emtricitabine/Tenofovir 1 tab 11/05/17 17:10 11/05/17 18:20 Truvada 200 Mg-300 Mg PO 1 tab DAILY MARZENA Administration Protocol Gentamicin Sulfate 0 gm 11/05/17 18:00 11/05/17 18:41 Gentamicin 0.1% TOP 1 appl TID MARZENA Administration Home Med 1 tab 11/05/17 18:00 11/05/17 18:20 Patient's Own Medication PO 1 tab DAILY MARZENA Administration Sodium Chloride 1,000 mls @ 100 mls/hr 11/05/17 15:45 11/05/17 16:20 Sodium Chloride 0.9% IV 100 mls/hr .Q10H MARZENA Administration Insulin Human Regular 0 unit 11/05/17 16:30 11/05/17 16:19 Novolin R SC Not Given ACHS MARZENA Protocol Raltegravir 400 mg 11/05/17 18:00 11/05/17 18:19 Isentress PO 400 mg BID MARZENA Administration Protocol - Patient Studies Lab Studies: Lab Studies 11/05/17 11/05/17 11/05/17 Range/Units 16:05 11:18 11:18 WBC (4.8-10.8) K/uL RBC (4.40-5.90) Mil/uL Hgb (12.0-18.0) g/dL Hct (35.0-51.0) % MCV (80.0-94.0) fL MCH (27.0-31.0) pg MCHC (33.0-37.0) g/dL RDW (11.5-14.5) % Plt Count (130-400) K/uL MPV (7.2-11.7) fL Neut % (Auto) (50.0-75.0) % Lymph % (Auto) (20.0-40.0) % Calloway % (Auto) (0.0-10.0) % Eos % (Auto) (0.0-4.0) % Baso % (Auto) (0.0-2.0) % Neut # (Auto) (1.8-7.0) K/uL Lymph # (Auto) (1.0-4.3) K/uL Calloway # (Auto) (0.0-0.8) K/uL Eos # (Auto) (0.0-0.7) K/uL Baso # (Auto) (0.0-0.2) K/uL Neutrophils % (Manual) (50-75) % Lymphocytes % (Manual) (20-40) % Monocytes % (Manual) (0-10) % Platelet Estimate (NORMAL) RBC Morphology PT (9.7-12.2) SECONDS INR APTT (21-34) SECONDS pO2 (30-55) mm/Hg VBG pH (7.32-7.43) VBG pCO2 (40-60) mmHg VBG HCO3 mmol/L VBG Total CO2 (22-28) mmol/L VBG O2 Sat (Calc) (40-65) % VBG Base Excess (0.0-2.0) mmol/L VBG Potassium (3.6-5.2) mmol/L Glucose (75-110) mg/dl Lactate (0.7-2.1) mmol/L Sodium (132-148) mmol/L Potassium (3.6-5.2) mmol/L Chloride (98-107) mmol/L Carbon Dioxide (22-30) mmol/L Anion Gap (10-20) BUN (9-20) mg/dL Creatinine (0.8-1.5) mg/dL Est GFR ( Amer) Est GFR (Non-Af Amer) POC Glucose (mg/dL) 164 H (65-110) mg/dL Random Glucose (75-110) mg/dL Calcium (8.6-10.4) mg/dl Total Bilirubin (0.2-1.3) mg/dL AST (17-59) U/L ALT (21-72) U/L Alkaline Phosphatase (38-126) U/L Troponin I (0.00-0.120) ng/mL NT-Pro-B Natriuret Pep (0-900) pg/mL Total Protein (6.3-8.3) g/dL Albumin (3.5-5.0) g/dL Globulin (2.2-3.9) gm/dL Albumin/Globulin Ratio (1.0-2.1) Venous Blood Potassium (3.6-5.2) mmol/L Urine Color Sarai (YELLOW) Urine Clarity Turbid (Clear) Urine pH 5.0 (5.0-8.0) Ur Specific Meigs 1.012 (1.003-1.030) Urine Protein 2+ H (NEGATIVE) mg/dL Urine Glucose (UA) Normal (Normal) mg/dL Urine Ketones Negative (NEGATIVE) mg/dL Urine Blood 2+ H (NEGATIVE) Urine Nitrate Negative (NEGATIVE) Urine Bilirubin Negative (NEGATIVE) Urine Urobilinogen Normal (0.2-1.0) mg/dL Ur Leukocyte Esterase 3+ H (Negative) Neo/uL Urine WBC (Auto) 1259 H (0-5) /hpf Urine RBC (Auto) 49 H (0-3) /hpf Urine WBC Clumps (Auto) Few H (NONE) /hpf Ur Squamous Epith Cells 1 (0-5) /hpf Urine Bacteria Occ H (<OCC) Urine Opiates Screen Negative (NEGATIVE) Urine Methadone Screen Negative (NEGATIVE) Ur Barbiturates Screen Negative (NEGATIVE) Ur Phencyclidine Scrn Negative (NEGATIVE) Ur Amphetamines Screen Negative (NEGATIVE) U Benzodiazepines Scrn Negative (NEGATIVE) U Oth Cocaine Metabols Negative (NEGATIVE) U Cannabinoids Screen Negative (NEGATIVE) 11/05/17 11/05/17 11/05/17 Range/Units 10:58 10:14 10:14 WBC (4.8-10.8) K/uL RBC (4.40-5.90) Mil/uL Hgb (12.0-18.0) g/dL Hct (35.0-51.0) % MCV (80.0-94.0) fL MCH (27.0-31.0) pg MCHC (33.0-37.0) g/dL RDW (11.5-14.5) % Plt Count (130-400) K/uL MPV (7.2-11.7) fL Neut % (Auto) (50.0-75.0) % Lymph % (Auto) (20.0-40.0) % Calloway % (Auto) (0.0-10.0) % Eos % (Auto) (0.0-4.0) % Baso % (Auto) (0.0-2.0) % Neut # (Auto) (1.8-7.0) K/uL Lymph # (Auto) (1.0-4.3) K/uL Calloway # (Auto) (0.0-0.8) K/uL Eos # (Auto) (0.0-0.7) K/uL Baso # (Auto) (0.0-0.2) K/uL Neutrophils % (Manual) (50-75) % Lymphocytes % (Manual) (20-40) % Monocytes % (Manual) (0-10) % Platelet Estimate (NORMAL) RBC Morphology PT 20.0 H (9.7-12.2) SECONDS INR 1.8 APTT 35 H (21-34) SECONDS pO2 23 L (30-55) mm/Hg VBG pH 7.34 (7.32-7.43) VBG pCO2 47 (40-60) mmHg VBG HCO3 22.6 mmol/L VBG Total CO2 26.8 (22-28) mmol/L VBG O2 Sat (Calc) 44.7 (40-65) % VBG Base Excess -0.8 L (0.0-2.0) mmol/L VBG Potassium 5.8 H (3.6-5.2) mmol/L Glucose 171 H (75-110) mg/dl Lactate 1.8 (0.7-2.1) mmol/L Sodium 136.0 138 (132-148) mmol/L Potassium 5.8 H (3.6-5.2) mmol/L Chloride 104.0 102 (98-107) mmol/L Carbon Dioxide 25 (22-30) mmol/L Anion Gap 16 (10-20) BUN 28 H (9-20) mg/dL Creatinine 2.5 H (0.8-1.5) mg/dL Est GFR ( Amer) 30 Est GFR (Non-Af Amer) 25 POC Glucose (mg/dL) (65-110) mg/dL Random Glucose 182 H (75-110) mg/dL Calcium 8.8 (8.6-10.4) mg/dl Total Bilirubin 0.6 (0.2-1.3) mg/dL AST 29 (17-59) U/L ALT 16 L D (21-72) U/L Alkaline Phosphatase 87 (38-126) U/L Troponin I 0.1110 (0.00-0.120) ng/mL NT-Pro-B Natriuret Pep 7450 H (0-900) pg/mL Total Protein 7.1 (6.3-8.3) g/dL Albumin 3.4 L (3.5-5.0) g/dL Globulin 3.7 (2.2-3.9) gm/dL Albumin/Globulin Ratio 0.9 L (1.0-2.1) Venous Blood Potassium 5.8 H (3.6-5.2) mmol/L Urine Color (YELLOW) Urine Clarity (Clear) Urine pH (5.0-8.0) Ur Specific Meigs (1.003-1.030) Urine Protein (NEGATIVE) mg/dL Urine Glucose (UA) (Normal) mg/dL Urine Ketones (NEGATIVE) mg/dL Urine Blood (NEGATIVE) Urine Nitrate (NEGATIVE) Urine Bilirubin (NEGATIVE) Urine Urobilinogen (0.2-1.0) mg/dL Ur Leukocyte Esterase (Negative) Neo/uL Urine WBC (Auto) (0-5) /hpf Urine RBC (Auto) (0-3) /hpf Urine WBC Clumps (Auto) (NONE) /hpf Ur Squamous Epith Cells (0-5) /hpf Urine Bacteria (<OCC) Urine Opiates Screen (NEGATIVE) Urine Methadone Screen (NEGATIVE) Ur Barbiturates Screen (NEGATIVE) Ur Phencyclidine Scrn (NEGATIVE) Ur Amphetamines Screen (NEGATIVE) U Benzodiazepines Scrn (NEGATIVE) U Oth Cocaine Metabols (NEGATIVE) U Cannabinoids Screen (NEGATIVE) 11/05/17 11/05/17 Range/Units 10:14 09:58 WBC 17.8 H D (4.8-10.8) K/uL RBC 3.70 L (4.40-5.90) Mil/uL Hgb 12.3 (12.0-18.0) g/dL Hct 35.8 (35.0-51.0) % MCV 96.9 H (80.0-94.0) fL MCH 33.1 H (27.0-31.0) pg MCHC 34.2 (33.0-37.0) g/dL RDW 14.2 (11.5-14.5) % Plt Count 335 (130-400) K/uL MPV 7.4 (7.2-11.7) fL Neut % (Auto) 77.9 H (50.0-75.0) % Lymph % (Auto) 9.4 L (20.0-40.0) % Calloway % (Auto) 12.4 H (0.0-10.0) % Eos % (Auto) 0.1 (0.0-4.0) % Baso % (Auto) 0.2 (0.0-2.0) % Neut # (Auto) 13.8 H (1.8-7.0) K/uL Lymph # (Auto) 1.7 (1.0-4.3) K/uL Calloway # (Auto) 2.2 H (0.0-0.8) K/uL Eos # (Auto) 0.0 (0.0-0.7) K/uL Baso # (Auto) 0.0 (0.0-0.2) K/uL Neutrophils % (Manual) 92 H (50-75) % Lymphocytes % (Manual) 4 L (20-40) % Monocytes % (Manual) 4 (0-10) % Platelet Estimate Normal (NORMAL) RBC Morphology Normal PT (9.7-12.2) SECONDS INR APTT (21-34) SECONDS pO2 (30-55) mm/Hg VBG pH (7.32-7.43) VBG pCO2 (40-60) mmHg VBG HCO3 mmol/L VBG Total CO2 (22-28) mmol/L VBG O2 Sat (Calc) (40-65) % VBG Base Excess (0.0-2.0) mmol/L VBG Potassium (3.6-5.2) mmol/L Glucose (75-110) mg/dl Lactate (0.7-2.1) mmol/L Sodium (132-148) mmol/L Potassium (3.6-5.2) mmol/L Chloride (98-107) mmol/L Carbon Dioxide (22-30) mmol/L Anion Gap (10-20) BUN (9-20) mg/dL Creatinine (0.8-1.5) mg/dL Est GFR ( Amer) Est GFR (Non-Af Amer) POC Glucose (mg/dL) 196 H (65-110) mg/dL Random Glucose (75-110) mg/dL Calcium (8.6-10.4) mg/dl Total Bilirubin (0.2-1.3) mg/dL AST (17-59) U/L ALT (21-72) U/L Alkaline Phosphatase (38-126) U/L Troponin I (0.00-0.120) ng/mL NT-Pro-B Natriuret Pep (0-900) pg/mL Total Protein (6.3-8.3) g/dL Albumin (3.5-5.0) g/dL Globulin (2.2-3.9) gm/dL Albumin/Globulin Ratio (1.0-2.1) Venous Blood Potassium (3.6-5.2) mmol/L Urine Color (YELLOW) Urine Clarity (Clear) Urine pH (5.0-8.0) Ur Specific Meigs (1.003-1.030) Urine Protein (NEGATIVE) mg/dL Urine Glucose (UA) (Normal) mg/dL Urine Ketones (NEGATIVE) mg/dL Urine Blood (NEGATIVE) Urine Nitrate (NEGATIVE) Urine Bilirubin (NEGATIVE) Urine Urobilinogen (0.2-1.0) mg/dL Ur Leukocyte Esterase (Negative) Neo/uL Urine WBC (Auto) (0-5) /hpf Urine RBC (Auto) (0-3) /hpf Urine WBC Clumps (Auto) (NONE) /hpf Ur Squamous Epith Cells (0-5) /hpf Urine Bacteria (<OCC) Urine Opiates Screen (NEGATIVE) Urine Methadone Screen (NEGATIVE) Ur Barbiturates Screen (NEGATIVE) Ur Phencyclidine Scrn (NEGATIVE) Ur Amphetamines Screen (NEGATIVE) U Benzodiazepines Scrn (NEGATIVE) U Oth Cocaine Metabols (NEGATIVE) U Cannabinoids Screen (NEGATIVE) Laboratory Results - last 24 hr 11/05/17 11/05/17 11/05/17 09:58 10:14 10:14 WBC 17.8 H D RBC 3.70 L Hgb 12.3 Hct 35.8 MCV 96.9 H MCH 33.1 H MCHC 34.2 RDW 14.2 Plt Count 335 MPV 7.4 Neut % (Auto) 77.9 H Lymph % (Auto) 9.4 L Calloway % (Auto) 12.4 H Eos % (Auto) 0.1 Baso % (Auto) 0.2 Neut # (Auto) 13.8 H Lymph # (Auto) 1.7 Calloway # (Auto) 2.2 H Eos # (Auto) 0.0 Baso # (Auto) 0.0 Neutrophils % (Manual) 92 H Lymphocytes % (Manual) 4 L Monocytes % (Manual) 4 Platelet Estimate Normal RBC Morphology Normal PT 20.0 H INR 1.8 APTT 35 H pO2 VBG pH VBG pCO2 VBG HCO3 VBG Total CO2 VBG O2 Sat (Calc) VBG Base Excess VBG Potassium Glucose Lactate Sodium Potassium Chloride Carbon Dioxide Anion Gap BUN Creatinine Est GFR ( Amer) Est GFR (Non-Af Amer) POC Glucose (mg/dL) 196 H Random Glucose Calcium Total Bilirubin AST ALT Alkaline Phosphatase Troponin I NT-Pro-B Natriuret Pep Total Protein Albumin Globulin Albumin/Globulin Ratio Venous Blood Potassium Urine Color Urine Clarity Urine pH Ur Specific Meigs Urine Protein Urine Glucose (UA) Urine Ketones Urine Blood Urine Nitrate Urine Bilirubin Urine Urobilinogen Ur Leukocyte Esterase Urine WBC (Auto) Urine RBC (Auto) Urine WBC Clumps (Auto) Ur Squamous Epith Cells Urine Bacteria Urine Opiates Screen Urine Methadone Screen Ur Barbiturates Screen Ur Phencyclidine Scrn Ur Amphetamines Screen U Benzodiazepines Scrn U Oth Cocaine Metabols U Cannabinoids Screen 11/05/17 11/05/17 11/05/17 10:14 10:58 11:18 WBC RBC Hgb Hct MCV MCH MCHC RDW Plt Count MPV Neut % (Auto) Lymph % (Auto) Calloway % (Auto) Eos % (Auto) Baso % (Auto) Neut # (Auto) Lymph # (Auto) Calloway # (Auto) Eos # (Auto) Baso # (Auto) Neutrophils % (Manual) Lymphocytes % (Manual) Monocytes % (Manual) Platelet Estimate RBC Morphology PT INR APTT pO2 23 L VBG pH 7.34 VBG pCO2 47 VBG HCO3 22.6 VBG Total CO2 26.8 VBG O2 Sat (Calc) 44.7 VBG Base Excess -0.8 L VBG Potassium 5.8 H Glucose 171 H Lactate 1.8 Sodium 138 136.0 Potassium 5.8 H Chloride 102 104.0 Carbon Dioxide 25 Anion Gap 16 BUN 28 H Creatinine 2.5 H Est GFR ( Amer) 30 Est GFR (Non-Af Amer) 25 POC Glucose (mg/dL) Random Glucose 182 H Calcium 8.8 Total Bilirubin 0.6 AST 29 ALT 16 L D Alkaline Phosphatase 87 Troponin I 0.1110 NT-Pro-B Natriuret Pep 7450 H Total Protein 7.1 Albumin 3.4 L Globulin 3.7 Albumin/Globulin Ratio 0.9 L Venous Blood Potassium 5.8 H Urine Color Urine Clarity Urine pH Ur Specific Meigs Urine Protein Urine Glucose (UA) Urine Ketones Urine Blood Urine Nitrate Urine Bilirubin Urine Urobilinogen Ur Leukocyte Esterase Urine WBC (Auto) Urine RBC (Auto) Urine WBC Clumps (Auto) Ur Squamous Epith Cells Urine Bacteria Urine Opiates Screen Negative Urine Methadone Screen Negative Ur Barbiturates Screen Negative Ur Phencyclidine Scrn Negative Ur Amphetamines Screen Negative U Benzodiazepines Scrn Negative U Oth Cocaine Metabols Negative U Cannabinoids Screen Negative 11/05/17 11/05/17 11:18 16:05 WBC RBC Hgb Hct MCV MCH MCHC RDW Plt Count MPV Neut % (Auto) Lymph % (Auto) Calloway % (Auto) Eos % (Auto) Baso % (Auto) Neut # (Auto) Lymph # (Auto) Calloway # (Auto) Eos # (Auto) Baso # (Auto) Neutrophils % (Manual) Lymphocytes % (Manual) Monocytes % (Manual) Platelet Estimate RBC Morphology PT INR APTT pO2 VBG pH VBG pCO2 VBG HCO3 VBG Total CO2 VBG O2 Sat (Calc) VBG Base Excess VBG Potassium Glucose Lactate Sodium Potassium Chloride Carbon Dioxide Anion Gap BUN Creatinine Est GFR ( Amer) Est GFR (Non-Af Amer) POC Glucose (mg/dL) 164 H Random Glucose Calcium Total Bilirubin AST ALT Alkaline Phosphatase Troponin I NT-Pro-B Natriuret Pep Total Protein Albumin Globulin Albumin/Globulin Ratio Venous Blood Potassium Urine Color Sarai Urine Clarity Turbid Urine pH 5.0 Ur Specific Meigs 1.012 Urine Protein 2+ H Urine Glucose (UA) Normal Urine Ketones Negative Urine Blood 2+ H Urine Nitrate Negative Urine Bilirubin Negative Urine Urobilinogen Normal Ur Leukocyte Esterase 3+ H Urine WBC (Auto) 1259 H Urine RBC (Auto) 49 H Urine WBC Clumps (Auto) Few H Ur Squamous Epith Cells 1 Urine Bacteria Occ H Urine Opiates Screen Urine Methadone Screen Ur Barbiturates Screen Ur Phencyclidine Scrn Ur Amphetamines Screen U Benzodiazepines Scrn U Oth Cocaine Metabols U Cannabinoids Screen EKG/Cardiology Studies: Cardiology / EKG Studies 11/05/17 10:03 ELECTROCARDIOGRAM Stat Comment: Mode Of Transportation: BED Reason For Exam: SOB Fingerstick Blood Sugar Results: 164 Review of Systems - Cardiovascular Cardiovascular: absent: Chest Pain, Chest Pain at Rest, Chest Pain with Activity - Respiratory Respiratory: absent: Cough, Dyspnea, Hemoptysis, Dyspnea on Exertion Critical Care Progress Note - Extremities/Vascular Does the Patient have a Central Venous Catheter?: No Does the Patient need a Central Venous Catheter?: No Does the Patient have a Nelson Catheter?: No Does the Patient need a Nelson Catheter?: No - Nutrition Nutrition: Nutrition Category Date Time Status Pureed [Dysphagia/Modified Consistency Diet] [DIET] Diets 11/05/17 Breakfast Active Assessment/Plan (1) Sepsis Current Visit: Yes Status: Acute Comment: Admitted to the ICU for management of severe sepsis with Puyurea Start IV antiobiotics as per ID (2) Stroke, hemorrhagic Current Visit: Yes Status: Acute Priority: High Comment: Patient appears to at his baseline mental status and no new neuro deficits Neuro consult appretiated, Unlikely hemorrhagic conversion, Repeat CT scan (3) UTI (urinary tract infection) Current Visit: Yes Status: Acute (4) HIV positive Current Visit: No Status: Acute Comment: Continue HAART (5) A-fib Current Visit: Yes Status: Acute Comment: Atrial fibrillation on anticoagulation (6) Aortic stenosis, moderate Current Visit: No Status: Acute
--- NOTE | 2017-11-05 21:59 | CP.PCM.CON ---
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 As noted patient was last known to have normal mentation at 8 PM prior to admission. Patient was recently hospitalized at [facility] on October 19, 2017 to 30 of October for acute CVA. Patient was discharged to subacute rehabilitation for PT and rehabilitation. Patient was admitted to ICU for severe sepsis with pyuria. Infectious disease consultation requested by PMD for severe sepsis, hypertension , and leukocytosis. PATIENT KNOWN TO ME FROM PREVIOUS HOSPITALIZATION. PATIENT'S LAST hiv 1 rna pcr QUANTITATIVE LEVELS <1.32-UNDETECTABLE. CD4- HELPER CELLS 213. iN october 2016. Patient is presently on HAART DESCOVY ([id number]/25MG TENOFOVIR ) 1 tablet once a day, RILPIVRINE 25 mg OD daily ISENTRESS 400 mg by mouth twice a day. PMH: Asthma, CAD, CVA, HIV, HTN, TIA Denies: Chronic Kidney Disease Family History: States: No Known Family Hx - Social History Hx Alcohol Use: No Hx Substance Use: No - Immunization History Hx Tetanus Toxoid Vaccination: No (unknown) Hx Influenza Vaccination: No (unknown) Hx Pneumococcal Vaccination: No (unknown) Review Of Systems Review Of Systems: ROS cannot be obtained secondary to pt's inabilty to answer questions. Review of Systems - Review of Systems Systems not reviewed;Unavailable: Altered Mental Status - Constitutional Constitutional: As Per HPI Past Patient History - Past Medical History & Family History Past Medical History?: Yes - Past Social History Smoking Status: Never Smoked - CARDIAC Hx Cardiac Disorders: Yes Hx Hypertension: Yes - PULMONARY Hx Respiratory Disorders: Yes Hx Asthma: Yes - NEUROLOGICAL Hx Neurological Disorder: Yes HX Cerebrovascular Accident: Yes Hx Transient Ischemic Attacks (TIA): Yes Other/Comment: right frontal CVA 10/19/17 - HEENT Hx HEENT Problems: No - RENAL Hx Chronic Kidney Disease: No - ENDOCRINE/METABOLIC Hx Endocrine Disorders: Yes Hx Diabetes Mellitus Type 2: Yes - HEMATOLOGICAL/ONCOLOGICAL Hx Blood Disorders: Yes Hx Human Immunodeficiency Virus (HIV): Yes - INTEGUMENTARY Hx Dermatological Problems: Yes Other/Comment: Stage 2 ulcer- R buttock 2 cm x 1.5 cm. right cheek scab - MUSCULOSKELETAL/RHEUMATOLOGICAL Hx Falls: No - GASTROINTESTINAL Hx Gastrointestinal Disorders: No - GENITOURINARY/GYNECOLOGICAL Hx Genitourinary Disorders: No - PSYCHIATRIC Hx Psychophysiologic Disorder: No Hx Substance Use: No - SURGICAL HISTORY Hx Surgeries: No - ANESTHESIA Hx Anesthesia: No Meds Allergies/Adverse Reactions: Allergies Allergy/AdvReac Type Severity Reaction Status Date / Time No Known Allergies Allergy Verified 10/19/17 17:52 - Medications Medications: Current Medications Emtricitabine/Tenofovir (Truvada 200 Mg-300 Mg) 1 tab PO DAILY MARZENA PRN Reason: Protocol Last Admin: 11/05/17 18:20 Dose: 1 tab Gentamicin Sulfate (Gentamicin 0.1%) 0 gm TOP TID MARZENA Last Admin: 11/05/17 18:41 Dose: 1 appl Home Med (Patient's Own Medication) 1 tab PO DAILY MARZENA Last Admin: 11/05/17 18:20 Dose: 1 tab Sodium Chloride (Sodium Chloride 0.9%) 1,000 mls @ 100 mls/hr IV .Q10H MARZENA Last Admin: 11/05/17 16:20 Dose: 100 mls/hr Piperacillin Sod/Tazobactam Sod (Zosyn 2.25 Gm Iv Premix) 2.25 gm in 50 mls @ 100 mls/hr IVPB Q6H MARZENA PRN Reason: Protocol Insulin Human Regular (Novolin R) 0 unit SC ACHS MARZENA PRN Reason: Protocol Last Admin: 11/05/17 16:19 Dose: Not Given Raltegravir (Isentress) 400 mg PO BID MARZENA PRN Reason: Protocol Last Admin: 11/05/17 18:19 Dose: 400 mg Physical Exam - Constitutional Appears: No Acute Distress - Head Exam Head Exam: NORMAL INSPECTION - Eye Exam Eye Exam: PERRL - ENT Exam ENT Exam: Mucous Membranes Dry - Neck Exam Neck exam: Positive for: Normal Inspection - Respiratory Exam Respiratory Exam: Clear to Auscultation Bilateral - Cardiovascular Exam Cardiovascular Exam: Irregular Rhythm, +S1, +S2 - GI/Abdominal Exam GI & Abdominal Exam: Normal Bowel Sounds, Soft - Extremities Exam Extremities exam: Positive for: pedal pulses present. Negative for: calf tenderness, pedal edema - Neurological Exam Neurological exam: Altered - Psychiatric Exam Psychiatric exam: Flat Affect - Skin Skin Exam: Normal Color, Warm Results - Vital Signs Recent Vital Signs: Last Vital Signs Temp 99.5 F 11/05/17 20:00 Pulse 60 11/05/17 20:40 Resp 17 11/05/17 20:40 BP 126/49 L 11/05/17 20:02 Pulse Ox 100 11/05/17 20:40 - Labs Result Diagrams: 11/05/17 10:14 11/05/17 10:14 Labs: Laboratory Results - last 24 hr 11/05/17 11/05/17 11/05/17 09:58 10:14 10:14 WBC 17.8 H D RBC 3.70 L Hgb 12.3 Hct 35.8 MCV 96.9 H MCH 33.1 H MCHC 34.2 RDW 14.2 Plt Count 335 MPV 7.4 Neut % (Auto) 77.9 H Lymph % (Auto) 9.4 L Simpson % (Auto) 12.4 H Eos % (Auto) 0.1 Baso % (Auto) 0.2 Neut # (Auto) 13.8 H Lymph # (Auto) 1.7 Simpson # (Auto) 2.2 H Eos # (Auto) 0.0 Baso # (Auto) 0.0 Neutrophils % (Manual) 92 H Lymphocytes % (Manual) 4 L Monocytes % (Manual) 4 Platelet Estimate Normal RBC Morphology Normal PT 20.0 H INR 1.8 APTT 35 H pO2 VBG pH VBG pCO2 VBG HCO3 VBG Total CO2 VBG O2 Sat (Calc) VBG Base Excess VBG Potassium Glucose Lactate Sodium Potassium Chloride Carbon Dioxide Anion Gap BUN Creatinine Est GFR ( Amer) Est GFR (Non-Af Amer) POC Glucose (mg/dL) 196 H Random Glucose Calcium Total Bilirubin AST ALT Alkaline Phosphatase Troponin I NT-Pro-B Natriuret Pep Total Protein Albumin Globulin Albumin/Globulin Ratio Venous Blood Potassium Urine Color Urine Clarity Urine pH Ur Specific Blunt Urine Protein Urine Glucose (UA) Urine Ketones Urine Blood Urine Nitrate Urine Bilirubin Urine Urobilinogen Ur Leukocyte Esterase Urine WBC (Auto) Urine RBC (Auto) Urine WBC Clumps (Auto) Ur Squamous Epith Cells Urine Bacteria Urine Opiates Screen Urine Methadone Screen Ur Barbiturates Screen Ur Phencyclidine Scrn Ur Amphetamines Screen U Benzodiazepines Scrn U Oth Cocaine Metabols U Cannabinoids Screen 05/24/18 05/24/18 05/24/18 10:14 10:58 11:18 WBC RBC Hgb Hct MCV MCH MCHC RDW Plt Count MPV Neut % (Auto) Lymph % (Auto) Simpson % (Auto) Eos % (Auto) Baso % (Auto) Neut # (Auto) Lymph # (Auto) Simpson # (Auto) Eos # (Auto) Baso # (Auto) Neutrophils % (Manual) Lymphocytes % (Manual) Monocytes % (Manual) Platelet Estimate RBC Morphology PT INR APTT pO2 23 L VBG pH 7.34 VBG pCO2 47 VBG HCO3 22.6 VBG Total CO2 26.8 VBG O2 Sat (Calc) 44.7 VBG Base Excess -0.8 L VBG Potassium 5.8 H Glucose 171 H Lactate 1.8 Sodium 138 136.0 Potassium 5.8 H Chloride 102 104.0 Carbon Dioxide 25 Anion Gap 16 BUN 28 H Creatinine 2.5 H Est GFR ( Amer) 30 Est GFR (Non-Af Amer) 25 POC Glucose (mg/dL) Random Glucose 182 H Calcium 8.8 Total Bilirubin 0.6 AST 29 ALT 16 L D Alkaline Phosphatase 87 Troponin I 0.1110 NT-Pro-B Natriuret Pep 7450 H Total Protein 7.1 Albumin 3.4 L Globulin 3.7 Albumin/Globulin Ratio 0.9 L Venous Blood Potassium 5.8 H Urine Color Urine Clarity Urine pH Ur Specific Blunt Urine Protein Urine Glucose (UA) Urine Ketones Urine Blood Urine Nitrate Urine Bilirubin Urine Urobilinogen Ur Leukocyte Esterase Urine WBC (Auto) Urine RBC (Auto) Urine WBC Clumps (Auto) Ur Squamous Epith Cells Urine Bacteria Urine Opiates Screen Negative Urine Methadone Screen Negative Ur Barbiturates Screen Negative Ur Phencyclidine Scrn Negative Ur Amphetamines Screen Negative U Benzodiazepines Scrn Negative U Oth Cocaine Metabols Negative U Cannabinoids Screen Negative 11/05/17 11/05/17 11/05/17 11:18 16:05 21:27 WBC RBC Hgb Hct MCV MCH MCHC RDW Plt Count MPV Neut % (Auto) Lymph % (Auto) Simpson % (Auto) Eos % (Auto) Baso % (Auto) Neut # (Auto) Lymph # (Auto) Simpson # (Auto) Eos # (Auto) Baso # (Auto) Neutrophils % (Manual) Lymphocytes % (Manual) Monocytes % (Manual) Platelet Estimate RBC Morphology PT INR APTT pO2 VBG pH VBG pCO2 VBG HCO3 VBG Total CO2 VBG O2 Sat (Calc) VBG Base Excess VBG Potassium Glucose Lactate Sodium Potassium Chloride Carbon Dioxide Anion Gap BUN Creatinine Est GFR ( Amer) Est GFR (Non-Af Amer) POC Glucose (mg/dL) 164 H 238 H Random Glucose Calcium Total Bilirubin AST ALT Alkaline Phosphatase Troponin I NT-Pro-B Natriuret Pep Total Protein Albumin Globulin Albumin/Globulin Ratio Venous Blood Potassium Urine Color Sarai Urine Clarity Turbid Urine pH 5.0 Ur Specific Blunt 1.012 Urine Protein 2+ H Urine Glucose (UA) Normal Urine Ketones Negative Urine Blood 2+ H Urine Nitrate Negative Urine Bilirubin Negative Urine Urobilinogen Normal Ur Leukocyte Esterase 3+ H Urine WBC (Auto) 1259 H Urine RBC (Auto) 49 H Urine WBC Clumps (Auto) Few H Ur Squamous Epith Cells 1 Urine Bacteria Occ H Urine Opiates Screen Urine Methadone Screen Ur Barbiturates Screen Ur Phencyclidine Scrn Ur Amphetamines Screen U Benzodiazepines Scrn U Oth Cocaine Metabols U Cannabinoids Screen - Imaging and Cardiology CT scan - head Status: Report reviewed by me (hemorrhagic infarct.) Assessment & Plan (1) Sepsis Status: Acute (2) Change in mental state Status: Acute Priority: High (3) Stroke, hemorrhagic Status: Acute Priority: High (4) UTI (urinary tract infection) Status: Acute (5) HIV positive Assessment and Plan: DESCOVY ([id number]/25MG TENOFOVIR ) 1 tablet once a day, RILPIVRINE 25 mg OD daily ISENTRESS 400 mg by mouth twice a day. continue home medication as ordered f/u HIV RNA quantitative levels Lymphocyte subset studies. Status: Acute (6) A-fib Status: Acute - Assessment and Plan (Free Text) Plan: pancultures UA urine cultures Continue IV Zosyn 2.25 g IV piggyback every 6 hourly. 11/05/17. Add by mouth Bactrim 1 single strength by mouth MWF. Continue antiretroviral therapy HAART. PATIENT CAN USE HIS OWN HOME MEDS. FOLLOW-UP CULTURES TO ADJUST ANTIBIOTICS. WILL FOLLOW ALONG WITH YOU AND MAKE FURTHER RECOMMENDATIONS NEEDED
[2017-11-05] MEDS: Piperacill/Tazo 2.25gm in Dex 2.25 GM/50 ML BAG IVPB SCH (22:23)
[2017-11-06] MEDS: Sodium Chloride 0.9% 1,000 ML IV SCH ×2 (02:21→12:20)
[2017-11-06] MEDS: Piperacill/Tazo 2.25gm in Dex 2.25 GM/50 ML BAG IVPB SCH ×2 (04:09→09:41)
[2017-11-06 06:15] LABS: BASO % 0.5 % (0.0-2.0); EOS # 0.1 K/uL (0.0-0.7); EOS % 1.7 % (0.0-4.0); HEMOGLOBIN 11.3 g/dL (12.0-18.0); LYMPH # 0.9 K/uL (1.0-4.3); LYMPH % 9.9 % (20.0-40.0); MEAN CELL VOLUME 97.9 fL (80.0-94.0); MEAN CORPUSCULAR HEMOGLOBIN 33.2 pg (27.0-31.0); MEAN CORPUSCULAR HGB CONC 33.9 g/dL (33.0-37.0); MEAN PLATELET VOLUME 7.6 fL (7.2-11.7); MONO # 0.9 K/uL (0.0-0.8); MONO % 10.6 % (0.0-10.0); NEUT # 6.8 K/uL (1.8-7.0); NEUT % 77.3 % (50.0-75.0); NRBC % 0.1 % (0.0-2.0); PLATELET COUNT 270 K/uL (130-400); RBC 3.39 Mil/uL (4.40-5.90); RED CELL DISTRIBUTION WIDTH 14.6 % (11.5-14.5); WHITE BLOOD COUNT 8.8 K/uL (4.8-10.8)
--- NOTE | 2017-11-06 06:15 | CP.PCM.PN ---
Subjective - Date & Time of Evaluation Date of Evaluation: 11/06/17 Time of Evaluation: 06:14 - Subjective Subjective: Mr. Aj was seen and examined at the bedside in ICU. He is non- verbal, opens his eyes spontaneously with verbal and tactile stimuli. He is able to follow simple commands such as opening his mouth, squeezing his hands and raising his bilateral lower extremities. His left side is weaker than than right. Spoke with the patient's daughter at bedside and provided her the plan of care of neurology, she verbalizes understanding. There was no untoward events overnight. Objective - Vital Signs/Intake and Output Vital Signs (last 24 hours): Temp Pulse Resp BP Pulse Ox 98.8 F 60 21 96/40 L 100 11/06/17 00:00 11/06/17 04:01 11/06/17 04:01 11/06/17 04:01 11/06/17 04:01 Intake and Output: 11/05/17 11/06/17 18:59 06:59 Intake Total 300 1150 Output Total 0 575 Balance 300 575 - Medications Medications: Current Medications Emtricitabine/Tenofovir (Truvada 200 Mg-300 Mg) 1 tab PO DAILY MARZENA PRN Reason: Protocol Last Admin: 11/05/17 18:20 Dose: 1 tab Gentamicin Sulfate (Gentamicin 0.1%) 0 gm TOP TID MARZENA Last Admin: 11/05/17 18:41 Dose: 1 appl Home Med (Patient's Own Medication) 1 tab PO DAILY MARZENA Sodium Chloride (Sodium Chloride 0.9%) 1,000 mls @ 100 mls/hr IV .Q10H MARZENA Last Admin: 11/06/17 02:21 Dose: 100 mls/hr Piperacillin Sod/Tazobactam Sod (Zosyn 2.25 Gm Iv Premix) 2.25 gm in 50 mls @ 100 mls/hr IVPB Q6H MARZENA PRN Reason: Protocol Last Admin: 11/06/17 04:09 Dose: 100 mls/hr Insulin Human Regular (Novolin R) 0 unit SC ACHS MARZENA PRN Reason: Protocol Last Admin: 11/05/17 22:03 Dose: Not Given Raltegravir (Isentress) 400 mg PO BID MARZENA PRN Reason: Protocol Last Admin: 11/05/17 18:19 Dose: 400 mg Trimethoprim/Sulfamethoxazole (Bactrim Ss Tab) 1 tab PO MWF MARZENA PRN Reason: Protocol - Labs Labs: 11/05/17 10:14 11/05/17 10:14 PT 20.0 SECONDS (9.7-12.2) H 11/05/17 10:14 INR 1.8 11/05/17 10:14 APTT 35 SECONDS (21-34) H 11/05/17 10:14 - Constitutional Appears: No Acute Distress - Head Exam Head Exam: NORMAL INSPECTION - Eye Exam Pupil Exam: PERRL Additional comments: 3 mm sluggish - Neurological Exam Neurological Exam: Awake Neuro motor strength exam: Left Upper Extremity: 2/1, Right Upper Extremity: 3, Left Lower Extremity: 2/1, Right Lower Extremity: 2/1 Additional comments: awake, follows commands, sensation is intact. Assessment and Plan (1) Stroke, hemorrhagic Assessment & Plan: Case discussed with Dr. Menendez, pending repeat CT scan of the head today to determine course of treatment for the patient. Recommend blood pressure control with systolic blood pressure less than 160 and diastolic blood pressure less than 90, keep head of bed elevated, and normothermic for brain perfusion. Status: Acute (2) Change in mental state Assessment & Plan: Case discussed with Dr. Menendez, continue all current medical regimen. Pending EEG today to assist in evaluation of the patient's mental status. Status: Acute
[2017-11-06 06:40] LABS: ALB/GLOB RATIO 0.8 (1.0-2.1); ALBUMIN 2.8 g/dL (3.5-5.0); ALT/SGPT < 6 U/L (21-72); AST/SGOT 21 U/L (17-59); BLOOD UREA NITROGEN 22 mg/dL (9-20); CALCIUM 8.2 mg/dl (8.6-10.4); GFR AFRICAN-AMERICAN 51; GFR NON-AFRICAN AMERICAN 42
[2017-11-06] MEDS: (Novolin R) Insulin Human Regular 100 units/ml vial SC SCH ×4 (08:28→21:14)
[2017-11-06] MEDS: Tmp-Smz 400 mg-80 mg SS Tab PO SCH (08:29)
[2017-11-06 09:26] LABS: LYMPHOCYTE 9 % (20-40); MONOCYTE 10 % (0-10); NEUTROPHIL 81 % (50-75); TOTAL CELLS COUNTED 100
[2017-11-06 09:27] LABS: ANISOCYTOSIS SLIGHT; PLATELET ESTIMATE NORMAL (NORMAL)
[2017-11-06] MEDS: GENTAMICIN 0.1% TOP SCH ×3 (09:42→17:41)
--- NOTE | 2017-11-06 09:55 | CT ---
PROCEDURE: CT HEAD WITHOUT CONTRAST. HISTORY: evaluate hemorrhagic area COMPARISON: Unenhanced head CT 11/05/2017. TECHNIQUE: Axial computed tomography images were obtained through the head/brain without intravenous contrast. Radiation dose: Total exam DLP = 1816.86 mGy-cm. This CT exam was performed using one or more of the following dose reduction techniques: Automated exposure control, adjustment of the mA and/or kV according to patient size, and/or use of iterative reconstruction technique. FINDINGS: Limited hemorrhagic conversion at a right frontal infarct in evolution is appreciated once again without interval change. No further intracranial hemorrhage appreciated here within the remainder of the supra infected or compartments and there is no midline shift. Limited loss of sulcation remains in this location due to the infarction primarily. Tree cerebral atrophy chronic microangiopathy are reiterated as well as bilateral basal ganglia and thalamic chronic lacunes. Dense round calcification remains at the left parietal lobe with the posterior fossa and brainstem remaining unremarkable. VENTRICLES: Unremarkable. No hydrocephalus. CALVARIUM: Unremarkable. PARANASAL SINUSES: Unremarkable as visualized. No significant inflammatory changes. MASTOID AIR CELLS: Unremarkable as visualized. No inflammatory changes. OTHER FINDINGS: None. IMPRESSION: Stable limited hemorrhagic conversion or right frontal infarct in evolution. No significant mass effect once again. Age related neuro degenerative change are reiterated as well as multiple chronic lacunes.
[2017-11-06] MEDS ORDERED: EDURANT 25 MG PO SCH (10:00)
--- NOTE | 2017-11-06 11:21 | CP.PCM.PN ---
Subjective - Date & Time of Evaluation Date of Evaluation: 11/06/17 Time of Evaluation: 11:21 - Subjective Subjective: afebrile.TMAX 99.9 drowsy but arousable. opens eyes on name, f/u simple commands NO ACUTE EVENTS OVERNIGHT. RN MS TRACEY REPORTED BLOOD CULTURES +VE GNR. urine culture +ve GNR. LABS REVIEWED. CREAT 1.6/BUN 21 PLAN DC IV ZOSYN, START IV MERREM 500MG IV Q 12 HRLY 11/06/17 Objective - Vital Signs/Intake and Output Vital Signs (last 24 hours): Temp Pulse Resp BP Pulse Ox 99.7 F H 60 19 162/61 H 100 11/06/17 08:00 11/06/17 10:04 11/06/17 10:04 11/06/17 10:04 11/06/17 10:04 Intake and Output: 11/06/17 11/06/17 06:59 18:59 Intake Total 1350 650 Output Total 725 675 Balance 625 -25 - Medications Medications: Current Medications Gentamicin Sulfate (Gentamicin 0.1%) 0 gm TOP TID MARZENA Last Admin: 11/06/17 09:42 Dose: 1 appl Sodium Chloride (Sodium Chloride 0.9%) 1,000 mls @ 100 mls/hr IV .Q10H MARZENA Last Admin: 11/06/17 02:21 Dose: 100 mls/hr Meropenem 500 mg/ Sodium (Chloride) 100 mls @ 100 mls/hr IVPB Q12H MARZENA PRN Reason: Protocol Insulin Human Regular (Novolin R) 0 unit SC ACHS MARZENA PRN Reason: Protocol Last Admin: 11/06/17 08:28 Dose: 1 unit Raltegravir (Isentress) 400 mg PO BID MARZENA PRN Reason: Protocol Last Admin: 11/06/17 09:41 Dose: 400 mg Trimethoprim/Sulfamethoxazole (Bactrim Ss Tab) 1 tab PO MWF MARZENA PRN Reason: Protocol Last Admin: 11/06/17 08:29 Dose: 1 tab - Labs Labs: 11/06/17 05:53 11/06/17 05:55 PT 20.0 SECONDS (9.7-12.2) H 11/05/17 10:14 INR 1.8 11/05/17 10:14 APTT 35 SECONDS (21-34) H 11/05/17 10:14 - Constitutional Appears: No Acute Distress - Head Exam Head Exam: NORMAL INSPECTION - Eye Exam Eye Exam: PERRL - ENT Exam ENT Exam: Normal Oropharynx (NO ORAL THRUSH ) - Neck Exam Neck Exam: Normal Inspection - Respiratory Exam Respiratory Exam: Decreased Breath Sounds - Cardiovascular Exam Cardiovascular Exam: REGULAR RHYTHM, +S1, +S2 - GI/Abdominal Exam GI & Abdominal Exam: Soft, Normal Bowel Sounds - Extremities Exam Extremities Exam: absent: Calf Tenderness, Pedal Edema - Neurological Exam Neurological Exam: Altered, Awake - Psychiatric Exam Psychiatric exam: Flat Affect - Skin Skin Exam: Normal Color, Warm Assessment and Plan (1) Sepsis Assessment & Plan: BLOOD CULTURE +VE GNR URINE CULTURE +VE GNR. D/C IV ZOSYN, START IV MERREM 500MG IV Q 12 HRLY 11/06/17 FOR BETTER GRAM-VE COVERAGE WHILE AWAITING CULTURES Status: Acute (2) Change in mental state Status: Acute (3) Stroke, hemorrhagic Status: Acute (4) UTI (urinary tract infection) Status: Acute (5) HIV positive Assessment & Plan: DESCOVY ([id number]/25MG TENOFOVIR ) 1 tablet once a day, RILPIVRINE 25 mg OD daily ISENTRESS 400 mg by mouth twice a day. continue home medication as ordered f/u HIV RNA quantitative levels Lymphocyte subset studies. Status: Acute (6) A-fib Status: Acute
[2017-11-06] MEDS: Meropenem 500 MG in Sodium Chloride 0.9% 100 ML IVPB SCH (12:30)
--- NOTE | 2017-11-06 14:27 | CP.PCM.PN ---
Subjective - Date & Time of Evaluation Date of Evaluation: 11/06/17 Time of Evaluation: 14:24 - Subjective Subjective: CCLINICALLY PATIENT IS IMPROVING BUT IS STILL APHASIC WITH NO MEANINGFUL WORDS. vITAL SIGNS STABLE PATIENT IS AFEBRILE bLOOD CULTURES AND A URINE CULTURE IS POSITIVE FOR GRAM-NEGATIVE RODS tHE REPEAT cat SCAN SHOWS NO CHANGE FROM THE PREVIOUS ONE pHYSICAL EXAM THE PATIENT STILL HAS LEFT-SIDED FACIAL DROOP WITH WEAKNESS ON THE LEFT MORE THAN THE RIGHT aS PER NEUROLOGY HE DOES NOT APPEAR PATIENT HAS A HEMORRHAGIC INFARCT, IF CLEARED WILL RESTART THE ANTICOAGULANTS. aWAITING FOR ent EVALUATION FOR RIGHT EAR. Objective - Vital Signs/Intake and Output Vital Signs (last 24 hours): Temp Pulse Resp BP Pulse Ox 97.6 F 60 20 134/59 L 100 11/06/17 12:00 11/06/17 13:00 11/06/17 13:00 11/06/17 12:32 11/06/17 13:00 Intake and Output: 11/06/17 11/06/17 11:59 23:59 Intake Total 1450 200 Output Total 1400 Balance 50 200 - Medications Medications: Current Medications Finasteride (Proscar) 5 mg PO DAILY MARZENA Gentamicin Sulfate (Gentamicin 0.1%) 0 gm TOP TID MARZENA Last Admin: 11/06/17 13:18 Dose: 1 appl Sodium Chloride (Sodium Chloride 0.9%) 1,000 mls @ 100 mls/hr IV .Q10H MARZENA Last Admin: 11/06/17 12:20 Dose: 100 mls/hr Meropenem 500 mg/ Sodium (Chloride) 100 mls @ 100 mls/hr IVPB Q12H MARZENA PRN Reason: Protocol Last Admin: 11/06/17 12:30 Dose: 100 mls/hr Insulin Human Regular (Novolin R) 0 unit SC ACHS MARZENA PRN Reason: Protocol Last Admin: 11/06/17 12:18 Dose: 3 unit Raltegravir (Isentress) 400 mg PO BID MARZENA PRN Reason: Protocol Last Admin: 11/06/17 09:41 Dose: 400 mg Tamsulosin HCl (Flomax) 0.4 mg PO DAILY MARZENA Trimethoprim/Sulfamethoxazole (Bactrim Ss Tab) 1 tab PO MWF MARZENA PRN Reason: Protocol Last Admin: 11/06/17 08:29 Dose: 1 tab - Labs Labs: 11/06/17 05:53 11/06/17 05:55 PT 20.0 SECONDS (9.7-12.2) H 11/05/17 10:14 INR 1.8 11/05/17 10:14 APTT 35 SECONDS (21-34) H 11/05/17 10:14
--- NOTE | 2017-11-06 14:40 | US ---
PROCEDURE: Ultrasound of the Kidneys HISTORY: r/o hydro pylo COMPARISON: None available. TECHNIQUE: Sonogram of the kidneys. FINDINGS: RIGHT KIDNEY: Measures: 11.4 x 5.9 x 5.8 cm. Renal cortical echogenicity is mildly increased may indicate an element of intrinsic medical renal disease with renal parenchyma otherwise normal appearing. No stone, solid mass lesion or hydronephrosis visualized. LEFT KIDNEY: Measures: 10.8 x 5.6 x 4.8 cm. Renal cortical echogenicity is mildly increased may indicate an element of intrinsic medical renal disease with renal parenchyma otherwise normal appearing. No stone, solid mass lesion or hydronephrosis visualized. OTHER FINDINGS: None. IMPRESSION: Potential intrinsic medical renal disease. No obstructive uropathy, urolithiasis or discrete cystic or solid renal parenchymal mass bilaterally.
[2017-11-06] MEDS ORDERED: DESCOVY PO SCH (18:00)
[2017-11-06] MEDS ORDERED: [UNRECOGNIZED DRUG - OTHER] PO SCH ×2 (18:00)
--- NOTE | 2017-11-06 21:10 | CON ---
DATE: 11/06/2017 REASON FOR CONSULTATION: Right ear bleeding. REQUESTING: Dr. Dave Sullivan. HISTORY: This is a 77-year-old male who has been having bleeding from the right ear on and off mild to moderate in intensity for 1 day, has resolved, it was on the right. There is no pain. PAST MEDICAL HISTORY: As noted in the chart by me. MEDICATIONS: As noted in the chart by me. ALLERGIES: NOTED IN THE CHART BY ME. PHYSICAL EXAMINATION: HEAD: Atraumatic, normocephalic. FACE: Good facial movements bilaterally. CONSTITUTIONAL: Well fed, well nourished. COMMUNICATION: Communicates well and appropriately. EXTERNAL NOSE AND EARS: No masses. No lesions. No erythema. No edema. INTERNAL EAR: There is a laceration on the right ear canal which is currently not bleeding. TMs intact, no fluid behind it, on both sides. INTERNAL NOSE: Deviated septum. No masses. No lesions. No erythema. No edema. ORAL CAVITY AND OROPHARYNX: No masses. No lesions. No erythema. No edema. LIPS AND GUMS: No masses. No lesions. No erythema. No edema. NECK: Supple. THYROID: No thyromegaly, no goiter. LYMPH NODES: No lymphadenopathy of the neck. ASSESSMENT: 1. Ear canal laceration. 2. Deviated septum. PLAN: Since the ear canal laceration is no longer bleeding, there is no ENT intervention needed at this time. Alexander Guerin MD
[2017-11-07] MEDS: Meropenem 500 MG in Sodium Chloride 0.9% 100 ML IVPB SCH ×2 (00:23→12:54)
[2017-11-07] MEDS: Sodium Chloride 0.9% 1,000 ML IV SCH ×2 (02:04→17:24)
--- NOTE | 2017-11-07 03:08 | CARD ---
APPROVED REPORT EKG Measurement Heart [id number] <Conclusion> Ventricular-paced rhythm Abnormal ECG
[2017-11-07] MEDS: (Novolin R) Insulin Human Regular 100 units/ml vial SC SCH ×4 (08:00→22:52)
[2017-11-07 08:21] LABS: BASO % 0.5 % (0.0-2.0); EOS % 0.8 % (0.0-4.0); HEMOGLOBIN 11.1 g/dL (12.0-18.0); LYMPH # 0.9 K/uL (1.0-4.3); LYMPH % 15.3 % (20.0-40.0); MEAN CELL VOLUME 96.6 fL (80.0-94.0); MEAN CORPUSCULAR HEMOGLOBIN 33.4 pg (27.0-31.0); MEAN CORPUSCULAR HGB CONC 34.6 g/dL (33.0-37.0); MEAN PLATELET VOLUME 7.7 fL (7.2-11.7); MONO # 0.8 K/uL (0.0-0.8); MONO % 13.9 % (0.0-10.0); NEUT # 4.2 K/uL (1.8-7.0); NEUT % 69.5 % (50.0-75.0); RBC 3.33 Mil/uL (4.40-5.90); RED CELL DISTRIBUTION WIDTH 14.4 % (11.5-14.5)
[2017-11-07 08:30] LABS: ALB/GLOB RATIO 0.8 (1.0-2.1); ALBUMIN 2.8 g/dL (3.5-5.0); ALT/SGPT 14 U/L (21-72); AST/SGOT 14 U/L (17-59); BILIRUBIN,DIRECT 0.3 mg/dL (0.0-0.4); BLOOD UREA NITROGEN 14 mg/dL (9-20); CALCIUM 8.5 mg/dl (8.6-10.4); GFR AFRICAN-AMERICAN > 60; GFR NON-AFRICAN AMERICAN 58
[2017-11-07] MEDS: GENTAMICIN 0.1% TOP SCH ×2 (09:23→17:01)
--- NOTE | 2017-11-07 14:49 | CP.PCM.PN ---
Subjective - Date & Time of Evaluation Date of Evaluation: 11/07/17 Time of Evaluation: 14:46 - Subjective Subjective: CHIEF COMPLAINTS TODAY : Mental status has slightly improved but still patient has periods of confusion. Weakness on the left side remains unchanged ROS. HEENT : N. Resp : No cough, wheezing ,pleuritic CP ,or hemoptysis Cardio : No anginal CP, PND, orthopnea, palpitation GI : No abd.pain, n/v ,diarrhea or GI bleeding . 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 Musculoskel : No joint swelling , Derm : No rash Psych : Normal affect. Ext : No swelling ,calf pain PE. Pt. is alert awake in no distress. V.S As noted in the chart Head ,ear nose,throat and eyes : Normal. Neck : Supple with normal carotids. Lungs: Clear air entry. Heart : S1 & S2 normal with S4. No murmur. Abd : Soft non tender with normal bowel sounds. Neuro : Moves all ext. left-sided facial droop with weakness of the left lower extremity Ext : No edema with intact pulses.Non tender calves Derm : No rashes or decubitus ulcer. LABS/RADIOLOGY: Urine and blood cultures are positive for gram-negative rods E. coli ASSESSMENT/PLAN : Creatinine has normalized to 1.2. Renal ultrasound showed no obstructive uropathy chronic renal disease Continue IV antibiotics. Discussed with the patients family about further treatment Objective - Vital Signs/Intake and Output Vital Signs (last 24 hours): Temp Pulse Resp BP Pulse Ox 98.4 F 60 20 145/65 96 11/07/17 08:46 11/07/17 08:46 11/07/17 08:46 11/07/17 08:46 11/07/17 08:46 Intake and Output: 11/07/17 11/07/17 11:59 23:59 Output Total 600 Balance -600 - Medications Medications: Current Medications Finasteride (Proscar) 5 mg PO DAILY [facility] Last Admin: 11/07/17 09:21 Dose: 5 mg Gentamicin Sulfate (Gentamicin 0.1%) 0 gm TOP TID [facility] Last Admin: 11/07/17 09:23 Dose: 1 appl Home Med (Patient's Own Medication) 1 tab PO DAILY@1800 [facility] Stop: 12/01/17 18:01 Home Med (Patient's Own Medication) 1 tab PO DAILY@1800 [facility] Sodium Chloride (Sodium Chloride 0.9%) 1,000 mls @ 100 mls/hr IV .Q10H [facility] Last Admin: 11/07/17 02:04 Dose: 100 mls/hr Meropenem 500 mg/ Sodium (Chloride) 100 mls @ 100 mls/hr IVPB Q12H [facility] PRN Reason: Protocol Last Admin: 11/07/17 12:54 Dose: 100 mls/hr Insulin Human Regular (Novolin R) 0 unit SC ACHS [facility] PRN Reason: Protocol Last Admin: 11/07/17 12:53 Dose: 3 unit Raltegravir (Isentress) 400 mg PO BID [facility] PRN Reason: Protocol Last Admin: 11/07/17 09:22 Dose: 400 mg Tamsulosin HCl (Flomax) 0.4 mg PO DAILY [facility] Last Admin: 11/07/17 09:21 Dose: 0.4 mg Trimethoprim/Sulfamethoxazole (Bactrim Ss Tab) 1 tab PO MWF [facility] PRN Reason: Protocol Last Admin: 11/06/17 08:29 Dose: 1 tab - Labs Labs: 11/07/17 08:05 11/07/17 08:05 PT 20.0 SECONDS (9.7-12.2) H 11/05/17 10:14 INR 1.8 11/05/17 10:14 APTT 35 SECONDS (21-34) H 11/05/17 10:14
[2017-11-07] MEDS: DESCOVY PO SCH (17:24)
[2017-11-07] MEDS: [UNRECOGNIZED DRUG - OTHER] PO SCH (17:24)
--- NOTE | 2017-11-07 19:55 | CP.PCM.PN ---
Subjective - Date & Time of Evaluation Date of Evaluation: 11/07/17 Time of Evaluation: 19:55 - Subjective Subjective: Afebrile opens eyes to simple commands Mental status has slightly improved but still patient has periods of confusion. Weakness on the left side remains unchanged Objective - Vital Signs/Intake and Output Vital Signs (last 24 hours): Temp Pulse Resp BP Pulse Ox 97.8 F 70 20 151/69 H 98 11/07/17 16:00 11/07/17 18:21 11/07/17 16:00 11/07/17 16:00 11/07/17 16:00 Intake and Output: 11/07/17 11/08/17 18:59 06:59 Intake Total 350 Output Total 300 Balance 50 - Medications Medications: Current Medications Finasteride (Proscar) 5 mg PO DAILY [facility] Last Admin: 11/07/17 09:21 Dose: 5 mg Gentamicin Sulfate (Gentamicin 0.1%) 0 gm TOP TID [facility] Last Admin: 11/07/17 17:01 Dose: Not Given Home Med (Patient's Own Medication) 1 tab PO DAILY@1800 [facility] Stop: 12/01/17 18:01 Last Admin: 11/07/17 17:24 Dose: 1 tab Home Med (Patient's Own Medication) 1 tab PO DAILY@1800 [facility] Last Admin: 11/07/17 17:24 Dose: 1 tab Sodium Chloride (Sodium Chloride 0.9%) 1,000 mls @ 100 mls/hr IV .Q10H [facility] Last Admin: 11/07/17 17:24 Dose: 100 mls/hr Meropenem 500 mg/ Sodium (Chloride) 100 mls @ 100 mls/hr IVPB Q12H [facility] PRN Reason: Protocol Last Admin: 11/07/17 12:54 Dose: 100 mls/hr Insulin Human Regular (Novolin R) 0 unit SC ACHS [facility] PRN Reason: Protocol Last Admin: 11/07/17 17:23 Dose: 3 unit Raltegravir (Isentress) 400 mg PO BID [facility] PRN Reason: Protocol Last Admin: 11/07/17 17:23 Dose: 400 mg Tamsulosin HCl (Flomax) 0.4 mg PO DAILY [facility] Last Admin: 11/07/17 09:21 Dose: 0.4 mg Trimethoprim/Sulfamethoxazole (Bactrim Ss Tab) 1 tab PO MWF [facility] PRN Reason: Protocol Last Admin: 11/06/17 08:29 Dose: 1 tab - Labs Labs: 11/07/17 08:05 11/07/17 08:05 PT 20.0 SECONDS (9.7-12.2) H 11/05/17 10:14 INR 1.8 11/05/17 10:14 APTT 35 SECONDS (21-34) H 11/05/17 10:14 - Constitutional Appears: No Acute Distress - Head Exam Head Exam: NORMAL INSPECTION - Eye Exam Eye Exam: PERRL - ENT Exam ENT Exam: Normal Oropharynx (NO THRUSH.) - Neck Exam Neck Exam: Normal Inspection - Respiratory Exam Respiratory Exam: Decreased Breath Sounds - Cardiovascular Exam Cardiovascular Exam: Irregular Rhythm, +S1, +S2 - Extremities Exam Extremities Exam: Normal Capillary Refill. absent: Calf Tenderness, Pedal Edema - Neurological Exam Neurological Exam: Altered (LT SIDED WEAKNESS), Awake - Psychiatric Exam Psychiatric exam: Flat Affect - Skin Skin Exam: Normal Color Assessment and Plan (1) Sepsis Assessment & Plan: BLOOD CULTURES +VE E. COLI S --MERREM,CIPRO urine culture +ve E. COLI LABS REVIEWED. CREAT 1.2/BUN 14 11/06/17 CONTINUE IV MERREM 500MG IV Q 12 HRLY 11/06/17 Status: Acute (2) Change in mental state Assessment & Plan: IMPROVING Status: Acute (3) Stroke, hemorrhagic Status: Acute (4) UTI (urinary tract infection) Status: Acute (5) HIV positive Assessment & Plan: CONTINUE HAART RX HOME MEDS ALLOWED TO USE. Status: Acute (6) A-fib Status: Acute
[2017-11-08] MEDS: Meropenem 500 MG in Sodium Chloride 0.9% 100 ML IVPB SCH ×2 (00:12→13:49)
[2017-11-08] MEDS: Sodium Chloride 0.9% 1,000 ML IV SCH ×3 (06:27→18:18)
[2017-11-08 06:58] LABS: BASO % 0.6 % (0.0-2.0); EOS # 0.1 K/uL (0.0-0.7); EOS % 2.3 % (0.0-4.0); HEMOGLOBIN 11.2 g/dL (12.0-18.0); LYMPH # 1.1 K/uL (1.0-4.3); LYMPH % 18.3 % (20.0-40.0); MEAN CELL VOLUME 96.1 fL (80.0-94.0); MEAN CORPUSCULAR HEMOGLOBIN 33.5 pg (27.0-31.0); MEAN CORPUSCULAR HGB CONC 34.8 g/dL (33.0-37.0); MEAN PLATELET VOLUME 7.4 fL (7.2-11.7); MONO # 1.1 K/uL (0.0-0.8); MONO % 18.9 % (0.0-10.0); NEUT # 3.5 K/uL (1.8-7.0); NEUT % 59.9 % (50.0-75.0); NRBC % 0.1 % (0.0-2.0); RBC 3.34 Mil/uL (4.40-5.90); RED CELL DISTRIBUTION WIDTH 14.1 % (11.5-14.5); WHITE BLOOD COUNT 5.8 K/uL (4.8-10.8)
[2017-11-08 07:32] LABS: ALB/GLOB RATIO 0.9 (1.0-2.1); ALBUMIN 2.8 g/dL (3.5-5.0); ALT/SGPT 14 U/L (21-72); AST/SGOT 18 U/L (17-59); BILIRUBIN,DIRECT 0.3 mg/dL (0.0-0.4); BLOOD UREA NITROGEN 15 mg/dL (9-20); CALCIUM 8.5 mg/dl (8.6-10.4); GFR AFRICAN-AMERICAN > 60; GFR NON-AFRICAN AMERICAN 58
--- NOTE | 2017-11-08 09:35 | CP.PCM.PN ---
Subjective - Date & Time of Evaluation Date of Evaluation: 11/08/17 Time of Evaluation: 09:34 - Subjective Subjective: Mr. Aj was seen and examined at the bedside. He is awake, but remains non- verbal. He is able to follow simple commands, but dependent to others with his ADL's. He remains with left side weakness. Repeat CT scan of the head showed stable limited hemorrhagic conversion of the right frontal infarct in evolution. No significant mass effect. Age related neuro degenerative change are reiterated as well as multiple chronic lacunes. There was no untoward events overnight. Objective - Vital Signs/Intake and Output Vital Signs (last 24 hours): Temp Pulse Resp BP Pulse Ox 99.2 F 60 20 155/68 H 98 11/08/17 07:00 11/08/17 07:00 11/08/17 07:00 11/08/17 07:00 11/08/17 07:00 Intake and Output: 11/08/17 11/08/17 06:59 18:59 Intake Total 700 Balance 700 - Medications Medications: Current Medications Finasteride (Proscar) 5 mg PO DAILY [facility] Last Admin: 11/07/17 09:21 Dose: 5 mg Gentamicin Sulfate (Gentamicin 0.1%) 0 gm TOP TID [facility] Last Admin: 11/07/17 17:01 Dose: Not Given Home Med (Patient's Own Medication) 1 tab PO DAILY@1800 [facility] Stop: 12/01/17 18:01 Last Admin: 11/07/17 17:24 Dose: 1 tab Home Med (Patient's Own Medication) 1 tab PO DAILY@1800 [facility] Last Admin: 11/07/17 17:24 Dose: 1 tab Sodium Chloride (Sodium Chloride 0.9%) 1,000 mls @ 100 mls/hr IV .Q10H [facility] Last Admin: 11/08/17 06:27 Dose: 100 mls/hr Meropenem 500 mg/ Sodium (Chloride) 100 mls @ 100 mls/hr IVPB Q12H [facility] PRN Reason: Protocol Last Admin: 11/08/17 00:12 Dose: 100 mls/hr Insulin Human Regular (Novolin R) 0 unit SC ACHS [facility] PRN Reason: Protocol Last Admin: 11/07/17 22:52 Dose: Not Given Raltegravir (Isentress) 400 mg PO BID [facility] PRN Reason: Protocol Last Admin: 11/07/17 17:23 Dose: 400 mg Tamsulosin HCl (Flomax) 0.4 mg PO DAILY [facility] Last Admin: 11/07/17 09:21 Dose: 0.4 mg Trimethoprim/Sulfamethoxazole (Bactrim Ss Tab) 1 tab PO MWF [facility] PRN Reason: Protocol Last Admin: 11/06/17 08:29 Dose: 1 tab - Labs Labs: 11/08/17 06:54 11/08/17 06:54 PT 20.0 SECONDS (9.7-12.2) H 11/05/17 10:14 INR 1.8 11/05/17 10:14 APTT 35 SECONDS (21-34) H 11/05/17 10:14 - Constitutional Appears: No Acute Distress - Head Exam Head Exam: NORMAL INSPECTION - Neurological Exam Neurological Exam: Awake Neuro motor strength exam: Left Upper Extremity: 2/1, Right Upper Extremity: 3, Left Lower Extremity: 2/1, Right Lower Extremity: 2/1 Additional comments: awake, able to follow simple commands. Assessment and Plan (1) History of CVA (cerebrovascular accident) Assessment & Plan: Case discussed Dr. Menendez , continue all current medical regimen. Pending EEG result. Recommend to keep of head elevated at least 30 degrees, blood pressure control. Recommend eliquis 5 mg PO BID Status: Acute
[2017-11-08] MEDS: (Novolin R) Insulin Human Regular 100 units/ml vial SC SCH ×4 (09:42→21:55)
[2017-11-08] MEDS: GENTAMICIN 0.1% TOP SCH ×4 (09:51→18:17)
--- NOTE | 2017-11-08 16:03 | CP.PCM.PN ---
Subjective - Date & Time of Evaluation Date of Evaluation: 11/08/17 Time of Evaluation: 16:01 - Subjective Subjective: Patient clinically remains same with improvement in mental status. Blood pressure and vital signs are stable Neuro evaluation noted recommended Eliquis 5 mg twice a day. Creatinine is stabilized to 1.2 Family wants another rehab will discuss with discharge planning on Thursday Objective - Vital Signs/Intake and Output Vital Signs (last 24 hours): Temp Pulse Resp BP Pulse Ox 99.2 F 60 20 155/68 H 98 11/08/17 07:00 11/08/17 07:00 11/08/17 07:00 11/08/17 07:00 11/08/17 07:00 Intake and Output: 11/08/17 11/08/17 11:59 23:59 Intake Total 1600 Balance 1600 - Medications Medications: Current Medications Apixaban (Eliquis) 5 mg PO BID [facility] Last Admin: 11/08/17 13:49 Dose: 5 mg Finasteride (Proscar) 5 mg PO DAILY [facility] Last Admin: 11/08/17 09:50 Dose: 5 mg Gentamicin Sulfate (Gentamicin 0.1%) 0 gm TOP TID [facility] Last Admin: 11/08/17 14:01 Dose: 1 appl Home Med (Patient's Own Medication) 1 tab PO DAILY@1800 [facility] Stop: 12/01/17 18:01 Last Admin: 11/07/17 17:24 Dose: 1 tab Home Med (Patient's Own Medication) 1 tab PO DAILY@1800 [facility] Last Admin: 11/07/17 17:24 Dose: 1 tab Sodium Chloride (Sodium Chloride 0.9%) 1,000 mls @ 100 mls/hr IV .Q10H [facility] Last Admin: 11/08/17 14:01 Dose: Not Given Meropenem 500 mg/ Sodium (Chloride) 100 mls @ 100 mls/hr IVPB Q12H [facility] PRN Reason: Protocol Last Admin: 11/08/17 13:49 Dose: 100 mls/hr Insulin Human Regular (Novolin R) 0 unit SC ACHS [facility] PRN Reason: Protocol Last Admin: 11/08/17 13:41 Dose: 3 unit Raltegravir (Isentress) 400 mg PO BID [facility] PRN Reason: Protocol Last Admin: 11/08/17 09:50 Dose: 400 mg Tamsulosin HCl (Flomax) 0.4 mg PO DAILY [facility] Last Admin: 11/08/17 09:50 Dose: 0.4 mg Trimethoprim/Sulfamethoxazole (Bactrim Ss Tab) 1 tab PO [facility] PRN Reason: Protocol Last Admin: 11/06/17 08:29 Dose: 1 tab - Labs Labs: 11/08/17 06:54 11/08/17 06:54 PT 20.0 SECONDS (9.7-12.2) H 11/05/17 10:14 INR 1.8 11/05/17 10:14 APTT 35 SECONDS (21-34) H 11/05/17 10:14
[2017-11-08] MEDS: DESCOVY PO SCH (18:16)
[2017-11-08] MEDS: [UNRECOGNIZED DRUG - OTHER] PO SCH (18:16)
[2017-11-09] MEDS: Meropenem 500 MG in Sodium Chloride 0.9% 100 ML IVPB SCH ×2 (00:25→12:47)
[2017-11-09] MEDS: Sodium Chloride 0.9% 1,000 ML IV SCH (05:20)
[2017-11-09 06:31] LABS: BASO % 0.6 % (0.0-2.0); EOS # 0.2 K/uL (0.0-0.7); EOS % 3.8 % (0.0-4.0); HEMOGLOBIN 12.6 g/dL (12.0-18.0); LYMPH # 1.1 K/uL (1.0-4.3); LYMPH % 19.1 % (20.0-40.0); MEAN CELL VOLUME 95.9 fL (80.0-94.0); MEAN CORPUSCULAR HEMOGLOBIN 33.6 pg (27.0-31.0); MEAN PLATELET VOLUME 7.3 fL (7.2-11.7); MONO % 18.8 % (0.0-10.0); NEUT # 3.2 K/uL (1.8-7.0); NEUT % 57.7 % (50.0-75.0); NRBC % 0.1 % (0.0-2.0); RBC 3.75 Mil/uL (4.40-5.90); RED CELL DISTRIBUTION WIDTH 14.2 % (11.5-14.5); WHITE BLOOD COUNT 5.5 K/uL (4.8-10.8)
[2017-11-09 07:29] LABS: ALB/GLOB RATIO 0.9 (1.0-2.1); ALBUMIN 3.1 g/dL (3.5-5.0); ALT/SGPT 16 U/L (21-72); AST/SGOT 17 U/L (17-59); BILIRUBIN,DIRECT 0.4 mg/dL (0.0-0.4); BLOOD UREA NITROGEN 13 mg/dL (9-20); GFR AFRICAN-AMERICAN > 60; GFR NON-AFRICAN AMERICAN > 60
[2017-11-09] MEDS: (Novolin R) Insulin Human Regular 100 units/ml vial SC SCH ×4 (08:13→21:45)
[2017-11-09] MEDS: GENTAMICIN 0.1% TOP SCH ×3 (09:33→18:00)
[2017-11-09] MEDS: Tmp-Smz 400 mg-80 mg SS Tab PO SCH (09:43)
--- NOTE | 2017-11-09 14:57 | CP.PCM.PN ---
Subjective - Date & Time of Evaluation Date of Evaluation: 11/09/17 Time of Evaluation: 14:55 - Subjective Subjective: CHIEF COMPLAINTS TODAY : Mental status has slightly improved but still patient has periods of confusion. Weakness on the left side remains unchanged ROS. HEENT : N. Resp : No cough, wheezing ,pleuritic CP ,or hemoptysis Cardio : No anginal CP, PND, orthopnea, palpitation GI : No abd.pain, n/v ,diarrhea or GI bleeding . 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 Musculoskel : No joint swelling , Derm : No rash Psych : Normal affect. Ext : No swelling ,calf pain PE. Pt. is alert awake in no distress. V.S As noted in the chart Head ,ear nose,throat and eyes : Normal. Neck : Supple with normal carotids. Lungs: Clear air entry. Heart : S1 & S2 normal with S4. No murmur. Abd : Soft non tender with normal bowel sounds. Neuro : Moves all ext. left-sided facial droop with weakness of the left lower extremity Ext : No edema with intact pulses.Non tender calves Derm : No rashes or decubitus ulcer. LABS/RADIOLOGY: Urine and blood cultures are positive for gram-negative rods E. coli ASSESSMENT/PLAN : Continue treatment with IV antibiotics for UTI and sepsis. Patient is on Eliquis 5 mg twice a day no evidence of any active bleeding. Family wants a new rehab center. Will discuss with discharge planning in a.m. Objective - Vital Signs/Intake and Output Vital Signs (last 24 hours): Temp Pulse Resp BP Pulse Ox 98.1 F 80 20 154/76 H 97 11/09/17 08:36 11/09/17 08:36 11/09/17 08:36 11/09/17 08:36 11/09/17 08:36 Intake and Output: 11/09/17 11/09/17 11:59 23:59 Intake Total 420 Balance 420 - Medications Medications: Current Medications Apixaban (Eliquis) 5 mg PO BID [facility] Last Admin: 11/09/17 09:33 Dose: 5 mg Finasteride (Proscar) 5 mg PO DAILY [facility] Last Admin: 11/09/17 09:33 Dose: 5 mg Gentamicin Sulfate (Gentamicin 0.1%) 0 gm TOP TID [facility] Last Admin: 11/09/17 09:33 Dose: 1 appl Home Med (Patient's Own Medication) 1 tab PO DAILY@1800 [facility] Stop: 12/01/17 18:01 Last Admin: 11/08/17 18:16 Dose: 1 tab Home Med (Patient's Own Medication) 1 tab PO DAILY@1800 [facility] Last Admin: 11/08/17 18:16 Dose: 1 tab Meropenem 500 mg/ Sodium (Chloride) 100 mls @ 100 mls/hr IVPB Q12H [facility] PRN Reason: Protocol Last Admin: 11/09/17 12:47 Dose: 100 mls/hr Sodium Chloride (Sodium Chloride 0.9%) 1,000 mls @ 60 mls/hr IV .[id number] [facility] Stop: 11/11/17 16:45 Last Admin: 11/09/17 05:20 Dose: 60 mls/hr Insulin Human Regular (Novolin R) 0 unit SC ACHS [facility] PRN Reason: Protocol Last Admin: 11/09/17 12:47 Dose: 1 unit Raltegravir (Isentress) 400 mg PO BID [facility] PRN Reason: Protocol Last Admin: 11/09/17 09:33 Dose: 400 mg Tamsulosin HCl (Flomax) 0.4 mg PO DAILY [facility] Last Admin: 11/09/17 09:33 Dose: 0.4 mg Trimethoprim/Sulfamethoxazole (Bactrim Ss Tab) 1 tab PO MWF [facility] PRN Reason: Protocol Last Admin: 11/09/17 09:43 Dose: 1 tab - Labs Labs: 11/09/17 06:26 11/09/17 06:26 PT 20.0 SECONDS (9.7-12.2) H 11/05/17 10:14 INR 1.8 11/05/17 10:14 APTT 35 SECONDS (21-34) H 11/05/17 10:14
[2017-11-09] MEDS: [UNRECOGNIZED DRUG - OTHER] PO SCH (17:24)
[2017-11-09] MEDS: DESCOVY PO SCH (17:24)
--- NOTE | 2017-11-09 17:46 | CP.PCM.PN ---
Subjective - Date & Time of Evaluation Date of Evaluation: 11/09/17 Time of Evaluation: 17:46 - Subjective Subjective: AFEBRILE. COMFORTABLE MUCH MORE AWAKE SHOOK HANDS WITH ME. DAUGHTER AT BEDSIDE. LABS REVIEWED. FOR REPEAT BLOOD AND URINE CULTURES IN AM 11/10/17 . CONTINUE IV ABX. IV MERREM 500MG IVPB Q 12HRLY PO BACTRIM 1SS MWF HAART RX PER PT HOME MEDS Objective - Vital Signs/Intake and Output Vital Signs (last 24 hours): Temp Pulse Resp BP Pulse Ox 98.1 F 80 20 154/76 H 97 11/09/17 08:36 11/09/17 08:36 11/09/17 08:36 11/09/17 08:36 11/09/17 08:36 Intake and Output: 11/09/17 11/09/17 06:59 18:59 Intake Total 1360 Balance 1360 - Medications Medications: Current Medications Apixaban (Eliquis) 5 mg PO BID [facility] Last Admin: 11/09/17 17:22 Dose: 5 mg Finasteride (Proscar) 5 mg PO DAILY [facility] Last Admin: 11/09/17 09:33 Dose: 5 mg Gentamicin Sulfate (Gentamicin 0.1%) 0 gm TOP TID [facility] Last Admin: 11/09/17 14:56 Dose: 1 appl Home Med (Patient's Own Medication) 1 tab PO DAILY@1800 [facility] Stop: 12/01/17 18:01 Last Admin: 11/09/17 17:24 Dose: 1 tab Home Med (Patient's Own Medication) 1 tab PO DAILY@1800 [facility] Last Admin: 11/09/17 17:24 Dose: 1 tab Meropenem 500 mg/ Sodium (Chloride) 100 mls @ 100 mls/hr IVPB Q12H [facility] PRN Reason: Protocol Last Admin: 11/09/17 12:47 Dose: 100 mls/hr Sodium Chloride (Sodium Chloride 0.9%) 1,000 mls @ 60 mls/hr IV .[id number] [facility] Stop: 11/11/17 16:45 Last Admin: 11/09/17 05:20 Dose: 60 mls/hr Insulin Human Regular (Novolin R) 0 unit SC ACHS [facility] PRN Reason: Protocol Last Admin: 11/09/17 17:22 Dose: 3 unit Raltegravir (Isentress) 400 mg PO BID [facility] PRN Reason: Protocol Last Admin: 11/09/17 17:22 Dose: 400 mg Tamsulosin HCl (Flomax) 0.4 mg PO DAILY [facility] Last Admin: 11/09/17 09:33 Dose: 0.4 mg Trimethoprim/Sulfamethoxazole (Bactrim Ss Tab) 1 tab PO MWF [facility] PRN Reason: Protocol Last Admin: 11/09/17 09:43 Dose: 1 tab - Labs Labs: 11/09/17 06:26 11/09/17 06:26 PT 20.0 SECONDS (9.7-12.2) H 11/05/17 10:14 INR 1.8 11/05/17 10:14 APTT 35 SECONDS (21-34) H 11/05/17 10:14 Assessment and Plan (1) Sepsis Assessment & Plan: BLOOD CULTURES +VE E. COLI S --MERREM,CIPRO urine culture +ve E. COLI LABS REVIEWED. CONTINUE IV MERREM 500MG IV Q 12 HRLY 11/06/17 -DAY4 FOR TOTAL OF 7DAYS F/U BY PO CIPRO 500MG BID X 7 DAYS. . Status: Acute (2) Change in mental state Status: Acute (3) Stroke, hemorrhagic Status: Acute (4) UTI (urinary tract infection) Assessment & Plan: F/U REPEAT UA/URINE CULTURE Status: Acute (5) HIV positive Assessment & Plan: PT ON HAART RX PER HOME MEDS Status: Acute (6) A-fib Status: Acute
[2017-11-10] MEDS: Meropenem 500 MG in Sodium Chloride 0.9% 100 ML IVPB SCH ×3 (00:02→23:59)
[2017-11-10 06:32] LABS: BASO % 0.3 % (0.0-2.0); EOS # 0.2 K/uL (0.0-0.7); EOS % 4.1 % (0.0-4.0); LYMPH # 1.2 K/uL (1.0-4.3); LYMPH % 20.8 % (20.0-40.0); MEAN CELL VOLUME 95.7 fL (80.0-94.0); MEAN CORPUSCULAR HEMOGLOBIN 32.9 pg (27.0-31.0); MEAN CORPUSCULAR HGB CONC 34.4 g/dL (33.0-37.0); MONO % 18.1 % (0.0-10.0); NEUT # 3.2 K/uL (1.8-7.0); NEUT % 56.7 % (50.0-75.0); NRBC % 0.1 % (0.0-2.0); RBC 3.63 Mil/uL (4.40-5.90); RED CELL DISTRIBUTION WIDTH 13.8 % (11.5-14.5); WHITE BLOOD COUNT 5.6 K/uL (4.8-10.8)
[2017-11-10 07:10] LABS: ALB/GLOB RATIO 0.8 (1.0-2.1); ALBUMIN 2.9 g/dL (3.5-5.0); ALT/SGPT 14 U/L (21-72); AST/SGOT 16 U/L (17-59); BILIRUBIN,DIRECT 0.3 mg/dL (0.0-0.4); BLOOD UREA NITROGEN 15 mg/dL (9-20); CALCIUM 8.7 mg/dl (8.6-10.4); GFR AFRICAN-AMERICAN > 60; GFR NON-AFRICAN AMERICAN > 60
[2017-11-10] MEDS: (Novolin R) Insulin Human Regular 100 units/ml vial SC SCH ×4 (08:25→21:06)
[2017-11-10] MEDS: GENTAMICIN 0.1% TOP SCH ×3 (09:32→18:00)
[2017-11-10 09:44] LABS: SQUAMOUS EPITHIAL < 1 /hpf (0-5); URINE BILIRUBIN NEGATIVE (NEGATIVE); URINE BLOOD NEGATIVE (NEGATIVE); URINE CLARITY Clear (Clear); URINE COLOR Straw (YELLOW); URINE GLUCOSE (UA) 3+ mg/dL (Normal); URINE LEUKOCYTE ESTERASE NEG Leu/uL (Negative); URINE PROTEIN NEGATIVE (NEGATIVE); URINE UROBILINOGEN NORMAL mg/dL (0.2-1.0)
--- NOTE | 2017-11-10 14:13 | CP.PCM.PN ---
Subjective - Date & Time of Evaluation Date of Evaluation: 11/10/17 Time of Evaluation: 14:13 - Subjective Subjective: CHIEF COMPLAINTS TODAY : Mental status has slightly improved but still patient has periods of confusion. Weakness on the left side remains unchanged ROS. HEENT : N. Resp : No cough, wheezing ,pleuritic CP ,or hemoptysis Cardio : No anginal CP, PND, orthopnea, palpitation GI : No abd.pain, n/v ,diarrhea or GI bleeding . 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 Musculoskel : No joint swelling , Derm : No rash Psych : Normal affect. Ext : No swelling ,calf pain PE. Pt. is alert awake in no distress. V.S As noted in the chart Head ,ear nose,throat and eyes : Normal. Neck : Supple with normal carotids. Lungs: Clear air entry. Heart : S1 & S2 normal with S4. No murmur. Abd : Soft non tender with normal bowel sounds. Neuro : Moves all ext. left-sided facial droop with weakness of the left lower extremity Ext : No edema with intact pulses.Non tender calves Derm : No rashes or decubitus ulcer. LABS/RADIOLOGY: Repeat urine c/s pending ASSESSMENT/PLAN : Continue treatment with IV antibiotics for UTI and sepsis. Patient is on Eliquis 5 mg twice a day no evidence of any active bleeding. Family wants a new rehab center. Will discuss with discharge planning in a.m. Objective - Vital Signs/Intake and Output Vital Signs (last 24 hours): Temp Pulse Resp BP Pulse Ox 98.4 F 64 20 126/64 98 11/10/17 07:25 11/10/17 08:00 11/10/17 07:25 11/10/17 07:25 11/10/17 07:25 Intake and Output: 11/10/17 11/10/17 11:59 23:59 Intake Total 420 Balance 420 - Medications Medications: Current Medications Apixaban (Eliquis) 5 mg PO BID [facility] Last Admin: 11/10/17 09:32 Dose: 5 mg Finasteride (Proscar) 5 mg PO DAILY [facility] Last Admin: 11/10/17 09:32 Dose: 5 mg Gentamicin Sulfate (Gentamicin 0.1%) 0 gm TOP TID [facility] Last Admin: 11/10/17 13:12 Dose: 1 appl Home Med (Patient's Own Medication) 1 tab PO DAILY@1800 [facility] Stop: 12/01/17 18:01 Last Admin: 11/09/17 17:24 Dose: 1 tab Home Med (Patient's Own Medication) 1 tab PO DAILY@1800 [facility] Last Admin: 11/09/17 17:24 Dose: 1 tab Meropenem 500 mg/ Sodium (Chloride) 100 mls @ 100 mls/hr IVPB Q12H [facility] PRN Reason: Protocol Last Admin: 11/10/17 12:10 Dose: 100 mls/hr Sodium Chloride (Sodium Chloride 0.9%) 1,000 mls @ 60 mls/hr IV .[id number] [facility] Stop: 11/11/17 16:45 Last Admin: 11/09/17 05:20 Dose: 60 mls/hr Insulin Human Regular (Novolin R) 0 unit SC ACHS [facility] PRN Reason: Protocol Last Admin: 11/10/17 12:10 Dose: 3 unit Raltegravir (Isentress) 400 mg PO BID [facility] PRN Reason: Protocol Last Admin: 11/10/17 09:32 Dose: 400 mg Tamsulosin HCl (Flomax) 0.4 mg PO DAILY [facility] Last Admin: 11/10/17 09:32 Dose: 0.4 mg Trimethoprim/Sulfamethoxazole (Bactrim Ss Tab) 1 tab PO MWF [facility] PRN Reason: Protocol Last Admin: 11/09/17 09:43 Dose: 1 tab - Labs Labs: 11/10/17 06:23 11/10/17 06:23 PT 20.0 SECONDS (9.7-12.2) H 11/05/17 10:14 INR 1.8 11/05/17 10:14 APTT 35 SECONDS (21-34) H 11/05/17 10:14
--- NOTE | 2017-11-10 14:16 | CP.PCM.PN ---
Subjective - Date & Time of Evaluation Date of Evaluation: 11/10/17 Time of Evaluation: 14:16 - Subjective Subjective: AFEBRILE. COMFORTABLE MUCH MORE AWAKE MEDS RENEWED. DAUGHTER AT BEDSIDE. LABS REVIEWED. FOR REPEAT BLOOD AND URINE CULTURES IN AM 11/10/17 . CONTINUE IV ABX. IV MERREM 500MG IVPB Q 12HRLY PO BACTRIM 1SS MWF HAART RX PER PT HOME MEDS Objective - Vital Signs/Intake and Output Vital Signs (last 24 hours): Temp Pulse Resp BP Pulse Ox 98.4 F 64 20 126/64 98 11/10/17 07:25 11/10/17 08:00 11/10/17 07:25 11/10/17 07:25 11/10/17 07:25 Intake and Output: 11/10/17 11/10/17 06:59 18:59 Intake Total 420 Balance 420 - Medications Medications: Current Medications Apixaban (Eliquis) 5 mg PO BID [facility] Last Admin: 11/10/17 09:32 Dose: 5 mg Finasteride (Proscar) 5 mg PO DAILY [facility] Last Admin: 11/10/17 09:32 Dose: 5 mg Gentamicin Sulfate (Gentamicin 0.1%) 0 gm TOP TID [facility] Last Admin: 11/10/17 13:12 Dose: 1 appl Home Med (Patient's Own Medication) 1 tab PO DAILY@1800 [facility] Stop: 12/01/17 18:01 Last Admin: 11/09/17 17:24 Dose: 1 tab Home Med (Patient's Own Medication) 1 tab PO DAILY@1800 [facility] Last Admin: 11/09/17 17:24 Dose: 1 tab Meropenem 500 mg/ Sodium (Chloride) 100 mls @ 100 mls/hr IVPB Q12H [facility] PRN Reason: Protocol Last Admin: 11/10/17 12:10 Dose: 100 mls/hr Sodium Chloride (Sodium Chloride 0.9%) 1,000 mls @ 60 mls/hr IV .[id number] [facility] Stop: 11/11/17 16:45 Last Admin: 11/09/17 05:20 Dose: 60 mls/hr Insulin Human Regular (Novolin R) 0 unit SC ACHS [facility] PRN Reason: Protocol Last Admin: 11/10/17 12:10 Dose: 3 unit Raltegravir (Isentress) 400 mg PO BID [facility] PRN Reason: Protocol Last Admin: 11/10/17 09:32 Dose: 400 mg Tamsulosin HCl (Flomax) 0.4 mg PO DAILY [facility] Last Admin: 11/10/17 09:32 Dose: 0.4 mg Trimethoprim/Sulfamethoxazole (Bactrim Ss Tab) 1 tab PO MWF [facility] PRN Reason: Protocol Last Admin: 11/09/17 09:43 Dose: 1 tab - Labs Labs: 11/10/17 06:23 11/10/17 06:23 PT 20.0 SECONDS (9.7-12.2) H 11/05/17 10:14 INR 1.8 11/05/17 10:14 APTT 35 SECONDS (21-34) H 11/05/17 10:14 - Constitutional Appears: No Acute Distress - Head Exam Head Exam: NORMAL INSPECTION - Eye Exam Eye Exam: PERRL - ENT Exam ENT Exam: Normal Oropharynx - Neck Exam Neck Exam: Normal Inspection - Respiratory Exam Respiratory Exam: Decreased Breath Sounds - Cardiovascular Exam Cardiovascular Exam: REGULAR RHYTHM, +S1, +S2 - GI/Abdominal Exam GI & Abdominal Exam: Soft, Normal Bowel Sounds - Extremities Exam Extremities Exam: absent: Calf Tenderness - Neurological Exam Neurological Exam: Awake - Psychiatric Exam Psychiatric exam: Flat Affect - Skin Skin Exam: Normal Color, Warm Assessment and Plan (1) Sepsis Assessment & Plan: BLOOD CULTURES +VE E. COLI S --MERREM,CIPRO urine culture +ve E. COLI LABS REVIEWED. CONTINUE IV MERREM 500MG IV Q 12 HRLY 11/06/17 -DAY4 FOR TOTAL OF 7DAYS F/U BY PO CIPRO 500MG BID X 7 DAYS. F/U REPEAT BLOOD AND URINE CULTURE 11/10/17- DRAWN. . Status: Acute (2) Change in mental state Status: Acute (3) Stroke, hemorrhagic Status: Acute (4) UTI (urinary tract infection) Status: Acute (5) HIV positive Status: Acute (6) A-fib Status: Acute
[2017-11-10 17:02] LABS: % CD4 (T HELPER CELL) 23 Percent (30-61); % CD8 (SUPPRESSOR T CELL) 42 Percent (12-42); ABSOLUTE CD4 CELLS 226 Cells/mcL (490-1740); ABSOLUTE CD8 CELLS 403 Cells/mcL (180-1170); ABSOLUTE LYMPHOCYTES 968 Cells/mcL (850-3900); HELPER/SUPPRESSOR RATIO 0.56 Ratio (0.86-5.00)
[2017-11-10] MEDS: DESCOVY PO SCH (17:54)
[2017-11-10] MEDS: [UNRECOGNIZED DRUG - OTHER] PO SCH (17:55)
[2017-11-10] MEDS: Sodium Chloride 0.9% 1,000 ML IV SCH (17:56)
[2017-11-11 02:08] VITALS: PULSE 60
[2017-11-11 06:26] LABS: BASO % 0.5 % (0.0-2.0); EOS # 0.2 K/uL (0.0-0.7); EOS % 3.9 % (0.0-4.0); HEMOGLOBIN 11.2 g/dL (12.0-18.0); LYMPH # 1.1 K/uL (1.0-4.3); MEAN CELL VOLUME 95.5 fL (80.0-94.0); MEAN CORPUSCULAR HEMOGLOBIN 32.8 pg (27.0-31.0); MEAN CORPUSCULAR HGB CONC 34.3 g/dL (33.0-37.0); MEAN PLATELET VOLUME 6.6 fL (7.2-11.7); MONO # 0.8 K/uL (0.0-0.8); MONO % 14.8 % (0.0-10.0); NEUT # 3.1 K/uL (1.8-7.0); NEUT % 58.8 % (50.0-75.0); RBC 3.41 Mil/uL (4.40-5.90); RED CELL DISTRIBUTION WIDTH 14.2 % (11.5-14.5); WHITE BLOOD COUNT 5.2 K/uL (4.8-10.8)
[2017-11-11 06:49] LABS: ALBUMIN 3.1 g/dL (3.5-5.0); ALT/SGPT 7 U/L (21-72); AST/SGOT 14 U/L (17-59); BILIRUBIN,DIRECT 0.3 mg/dL (0.0-0.4); BLOOD UREA NITROGEN 12 mg/dL (9-20); CALCIUM 8.6 mg/dl (8.6-10.4); GFR AFRICAN-AMERICAN > 60; GFR NON-AFRICAN AMERICAN > 60
[2017-11-11] MEDS: (Novolin R) Insulin Human Regular 100 units/ml vial SC SCH ×4 (08:54→22:26)
--- NOTE | 2017-11-11 09:13 | CP.PCM.PN ---
Subjective - Date & Time of Evaluation Date of Evaluation: 11/11/17 Time of Evaluation: 09:12 - Subjective Subjective: Mr. Aj was seen and examined at the bedside. He is lethargic and remains non-verbal. He is able to follow simple commands such as opening his eyes, squeezing his hand, and is dependent to others with his ADL's. He is not able to maintain his wakefulness. He remains with left side weakness. There was no untoward events overnight. Objective - Vital Signs/Intake and Output Vital Signs (last 24 hours): Temp Pulse Resp BP Pulse Ox 97.6 F 60 20 132/70 98 11/11/17 07:00 11/11/17 07:00 11/11/17 07:00 11/11/17 07:00 11/11/17 07:00 Intake and Output: 11/11/17 11/11/17 06:59 18:59 Intake Total 480 570 Balance 480 570 - Medications Medications: Current Medications Amantadine HCl (Symmetrel) 100 mg PO DAILY [facility] Apixaban (Eliquis) 5 mg PO BID [facility] Last Admin: 11/10/17 17:56 Dose: 5 mg Finasteride (Proscar) 5 mg PO DAILY [facility] Last Admin: 11/10/17 09:32 Dose: 5 mg Gentamicin Sulfate (Gentamicin 0.1%) 0 gm TOP TID [facility] Last Admin: 11/10/17 18:00 Dose: 1 appl Home Med (Patient's Own Medication) 1 tab PO DAILY@1800 [facility] Stop: 12/01/17 18:01 Last Admin: 11/10/17 17:54 Dose: 1 tab Home Med (Patient's Own Medication) 1 tab PO DAILY@1800 [facility] Last Admin: 11/10/17 17:55 Dose: Not Given Meropenem 500 mg/ Sodium (Chloride) 100 mls @ 100 mls/hr IVPB Q12H [facility] PRN Reason: Protocol Last Admin: 11/10/17 23:59 Dose: 100 mls/hr Sodium Chloride (Sodium Chloride 0.9%) 1,000 mls @ 60 mls/hr IV .[id number] [facility] Stop: 11/11/17 16:45 Last Admin: 11/10/17 17:56 Dose: 60 mls/hr Insulin Human Regular (Novolin R) 0 unit SC ACHS [facility] PRN Reason: Protocol Last Admin: 11/11/17 08:54 Dose: Not Given Raltegravir (Isentress) 400 mg PO BID [facility] PRN Reason: Protocol Last Admin: 11/10/17 17:56 Dose: 400 mg Tamsulosin HCl (Flomax) 0.4 mg PO DAILY [facility] Last Admin: 11/10/17 09:32 Dose: 0.4 mg Trimethoprim/Sulfamethoxazole (Bactrim Ss Tab) 1 tab PO MWF [facility] PRN Reason: Protocol Last Admin: 11/09/17 09:43 Dose: 1 tab - Labs Labs: 11/11/17 06:17 11/11/17 06:17 PT 20.0 SECONDS (9.7-12.2) H 11/05/17 10:14 INR 1.8 11/05/17 10:14 APTT 35 SECONDS (21-34) H 11/05/17 10:14 - Constitutional Appears: No Acute Distress - Head Exam Head Exam: NORMAL INSPECTION - Eye Exam Pupil Exam: Miosis, PERRL - Neurological Exam Neuro motor strength exam: Left Upper Extremity: 2/1, Right Upper Extremity: 3, Left Lower Extremity: 2/1, Right Lower Extremity: 2/1 Additional comments: He is lethargic, but able to follow some commands which is a decline from previous examination. Assessment and Plan (1) History of CVA (cerebrovascular accident) Assessment & Plan: Case discussed with Dr. Menendez, continue all current medical regimen. Recommend repeat CT of the head without contrast, Amantadine 100 mg PO/ NGT Q daily to assist with his wakefulness. Swallowing re- evaluation, if patient fails to refer to primary for possible NGT placement for feeding and medication purpose. Status: Acute
--- NOTE | 2017-11-11 09:48 | CT ---
PROCEDURE: CT HEAD WITHOUT CONTRAST. HISTORY: change of mental status COMPARISON: 11/06/2017 TECHNIQUE: Axial computed tomography images were obtained through the head/brain without intravenous contrast. Radiation dose: Total exam DLP = 1193.55 MGy-cm. This CT exam was performed using one or more of the following dose reduction techniques: Automated exposure control, adjustment of the mA and/or kV according to patient size, and/or use of iterative reconstruction technique. FINDINGS: HEMORRHAGE: Minimal decrease in the extent of hemorrhage in the high right frontal lobe consistent with mild resolution of hemorrhagic conversion in a right frontal infarct. . BRAIN: Right frontal infarct as noted. Mild broad resolving hemorrhagic conversion. No acute infarct elsewhere. Moderate to severe chronic periventricular/ deep white matter microvascular ischemic change. Small old bilateral basal ganglia lacunar infarct. Old bilateral thalamic lacunar infarcts. Small old left cerebellar hemispheric lacunar infarct. Dense rounded globular calcification again noted adjacent to the posterior body of the left lateral ventricle. Likely dystrophic. VENTRICLES: Unremarkable. No hydrocephalus. CALVARIUM: Unremarkable. PARANASAL SINUSES: Mild chronic paranasal sinusitis involving frontal, ethmoid and bilateral maxillary sinuses. MASTOID AIR CELLS: Unremarkable as visualized. No inflammatory changes. OTHER FINDINGS: None. IMPRESSION: Minimally decreased hemorrhage in region of right frontal infarct which has previously demonstrated hemorrhagic conversion. No new infarct. Moderate to severe chronic white matter ischemic change. Old bilateral basal ganglia, thalamic and left cerebellar hemispheric lacunar infarcts.
[2017-11-11] MEDS: Tmp-Smz 400 mg-80 mg SS Tab PO SCH ×2 (11:11→12:36)
[2017-11-11] MEDS: Amantadine 50 mg/5 ml Syrup (473 ml) PO SCH ×2 (11:13→12:43)
[2017-11-11] MEDS: GENTAMICIN 0.1% TOP SCH ×2 (11:14→19:00)
--- NOTE | 2017-11-11 12:03 | CP.PCM.PN ---
Subjective - Date & Time of Evaluation Date of Evaluation: 11/11/17 Time of Evaluation: 12:03 - Subjective Subjective: AFEBRILE. COMFORTABLE ms waxing and waning NON VERBAL DAUGHTER AT BEDSIDE. PT FOR REPEAT SWALLOW TEST LABS REVIEWED. REPEAT BLOOD AND URINE CULTURES -VE X 24HRS. 11/10/17 . CONTINUE IV ABX. IV MERREM 500MG IVPB Q 12HRLY PO BACTRIM 1SS MWF HAART RX PER PT HOME MEDS CASE DISCUSSED WITH STAFF. F/U REPEAT CT HEAD ORDERED BY NEUROLOGY Objective - Vital Signs/Intake and Output Vital Signs (last 24 hours): Temp Pulse Resp BP Pulse Ox 97.6 F 60 20 132/70 98 11/11/17 07:00 11/11/17 07:00 11/11/17 07:00 11/11/17 07:00 11/11/17 07:00 Intake and Output: 11/11/17 11/11/17 06:59 18:59 Intake Total 480 570 Balance 480 570 - Medications Medications: Current Medications Amantadine HCl (Symmetrel) 100 mg PO DAILY [facility] Last Admin: 11/11/17 11:13 Dose: Not Given Apixaban (Eliquis) 5 mg PO BID [facility] Last Admin: 11/11/17 11:12 Dose: Not Given Finasteride (Proscar) 5 mg PO DAILY [facility] Last Admin: 11/11/17 11:13 Dose: Not Given Gentamicin Sulfate (Gentamicin 0.1%) 0 gm TOP TID [facility] Last Admin: 11/11/17 11:14 Dose: 1 appl Home Med (Patient's Own Medication) 1 tab PO DAILY@1800 [facility] Stop: 12/01/17 18:01 Last Admin: 11/10/17 17:54 Dose: 1 tab Home Med (Patient's Own Medication) 1 tab PO DAILY@1800 [facility] Last Admin: 11/10/17 17:55 Dose: Not Given Meropenem 500 mg/ Sodium (Chloride) 100 mls @ 100 mls/hr IVPB Q12H [facility] PRN Reason: Protocol Last Admin: 11/10/17 23:59 Dose: 100 mls/hr Sodium Chloride (Sodium Chloride 0.9%) 1,000 mls @ 60 mls/hr IV .[id number] [facility] Stop: 11/11/17 16:45 Last Admin: 11/10/17 17:56 Dose: 60 mls/hr Insulin Human Regular (Novolin R) 0 unit SC ACHS [facility] PRN Reason: Protocol Last Admin: 11/11/17 08:54 Dose: Not Given Raltegravir (Isentress) 400 mg PO BID [facility] PRN Reason: Protocol Last Admin: 11/11/17 11:12 Dose: Not Given Tamsulosin HCl (Flomax) 0.4 mg PO DAILY [facility] Last Admin: 11/11/17 11:12 Dose: Not Given Trimethoprim/Sulfamethoxazole (Bactrim Ss Tab) 1 tab PO MWF [facility] PRN Reason: Protocol Last Admin: 11/11/17 11:11 Dose: Not Given - Labs Labs: 11/11/17 06:17 11/11/17 06:17 PT 20.0 SECONDS (9.7-12.2) H 11/05/17 10:14 INR 1.8 11/05/17 10:14 APTT 35 SECONDS (21-34) H 11/05/17 10:14 - Constitutional Appears: No Acute Distress, Confused, Chronically Ill - Head Exam Head Exam: NORMAL INSPECTION - Eye Exam Eye Exam: PERRL - ENT Exam ENT Exam: Normal Oropharynx - Neck Exam Neck Exam: Normal Inspection - Respiratory Exam Respiratory Exam: Clear to Ausculation Bilateral - Cardiovascular Exam Cardiovascular Exam: Irregular Rhythm, +S1, +S2 - GI/Abdominal Exam GI & Abdominal Exam: Soft, Normal Bowel Sounds - Extremities Exam Extremities Exam: absent: Calf Tenderness, Pedal Edema - Neurological Exam Neurological Exam: Altered, Awake - Psychiatric Exam Psychiatric exam: Flat Affect - Skin Skin Exam: Normal Color, Warm Assessment and Plan (1) Sepsis Assessment & Plan: CONTINUE IV MERREM 500MG IV Q 12 HRLY 11/06/17 -DAY6 FOR TOTAL OF 7DAYS F/U BY PO CIPRO 500MG BID X 7 DAYS. IF PATIENT UNABLE TO PASS THE SWALLOW EXAM MAY HAVE TO CONTINUE iv mERREM 500 EVERY 12 HOURLY FOR TOTAL OF 14 DAYS Status: Acute (2) Change in mental state Status: Acute (3) Stroke, hemorrhagic Status: Acute (4) UTI (urinary tract infection) Status: Acute (5) HIV positive Assessment & Plan: CONTINUE HAART RX .. Status: Acute (6) A-fib Status: Acute
[2017-11-11] MEDS: Meropenem 500 MG in Sodium Chloride 0.9% 100 ML IVPB SCH (12:40)
--- NOTE | 2017-11-11 14:21 | CP.PCM.PN ---
Subjective - Date & Time of Evaluation Date of Evaluation: 11/11/17 Time of Evaluation: 14:20 - Subjective Subjective: CHIEF COMPLAINTS TODAY : Mental status has slightly improved but still patient has periods of confusion. Weakness on the left side remains unchanged ROS. HEENT : N. Resp : No cough, wheezing ,pleuritic CP ,or hemoptysis Cardio : No anginal CP, PND, orthopnea, palpitation GI : No abd.pain, n/v ,diarrhea or GI bleeding . 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 Musculoskel : No joint swelling , Derm : No rash Psych : Normal affect. Ext : No swelling ,calf pain PE. Pt. is alert awake in no distress. V.S As noted in the chart Head ,ear nose,throat and eyes : Normal. Neck : Supple with normal carotids. Lungs: Clear air entry. Heart : S1 & S2 normal with S4. No murmur. Abd : Soft non tender with normal bowel sounds. Neuro : Moves all ext. left-sided facial droop with weakness of the left lower extremity Ext : No edema with intact pulses.Non tender calves Derm : No rashes or decubitus ulcer. LABS/RADIOLOGY: Repeat urine c/s pending ASSESSMENT/PLAN : Continue treatment with IV antibiotics for UTI and sepsis. Patient is on Eliquis 5 mg twice a day no evidence of any active bleeding. THIS MORNING PATIENT HAD A MORE ALTERED STATE OF CONSCIOUSNESS. ct SCAN OF THE HEAD WAS DONE WHICH SHOWS NO OTHER ACUTE CHANGES THAN THE PREVIOUSLY NOTED, DECREASING HEMORRHAGE IN THE FRONTAL LOBE AND OLD LACUNAR INFARCTS IN OTHER LOBES. sO FAR THE URINE CULTURE AND THE BLOOD CULTURES REPEAT ARE NEGATIVE. wE WILL DISCUSS WITH id, FOR LENGTH OF iv ANTIBIOTICS. Objective - Vital Signs/Intake and Output Vital Signs (last 24 hours): Temp Pulse Resp BP Pulse Ox 97.6 F 60 20 132/70 98 11/11/17 07:00 11/11/17 07:00 11/11/17 07:00 11/11/17 07:00 11/11/17 07:00 Intake and Output: 11/11/17 11/11/17 11:59 23:59 Intake Total 570 Balance 570 - Medications Medications: Current Medications Amantadine HCl (Symmetrel) 100 mg PO DAILY [facility] Last Admin: 11/11/17 12:43 Dose: 100 mg Apixaban (Eliquis) 5 mg PO BID [facility] Last Admin: 11/11/17 12:42 Dose: 5 mg Finasteride (Proscar) 5 mg PO DAILY [facility] Last Admin: 11/11/17 11:13 Dose: Not Given Gentamicin Sulfate (Gentamicin 0.1%) 0 gm TOP TID [facility] Last Admin: 11/11/17 11:14 Dose: 1 appl Home Med (Patient's Own Medication) 1 tab PO DAILY@1800 [facility] Stop: 12/01/17 18:01 Last Admin: 11/10/17 17:54 Dose: 1 tab Home Med (Patient's Own Medication) 1 tab PO DAILY@1800 [facility] Last Admin: 11/10/17 17:55 Dose: Not Given Meropenem 500 mg/ Sodium (Chloride) 100 mls @ 100 mls/hr IVPB Q12H [facility] PRN Reason: Protocol Last Admin: 11/11/17 12:40 Dose: 100 mls/hr Sodium Chloride (Sodium Chloride 0.9%) 1,000 mls @ 60 mls/hr IV .[id number] [facility] Stop: 11/11/17 16:45 Last Admin: 11/10/17 17:56 Dose: 60 mls/hr Insulin Human Regular (Novolin R) 0 unit SC ACHS [facility] PRN Reason: Protocol Last Admin: 11/11/17 12:34 Dose: 1 unit Raltegravir (Isentress) 400 mg PO BID [facility] PRN Reason: Protocol Last Admin: 11/11/17 12:50 Dose: 400 mg Tamsulosin HCl (Flomax) 0.4 mg PO DAILY [facility] Last Admin: 11/11/17 12:35 Dose: 0.4 mg Trimethoprim/Sulfamethoxazole (Bactrim Ss Tab) 1 tab PO MWF [facility] PRN Reason: Protocol Last Admin: 11/11/17 12:36 Dose: 1 tab - Labs Labs: 11/11/17 06:17 11/11/17 06:17 PT 20.0 SECONDS (9.7-12.2) H 11/05/17 10:14 INR 1.8 11/05/17 10:14 APTT 35 SECONDS (21-34) H 11/05/17 10:14
[2017-11-11] MEDS: DESCOVY PO SCH (17:25)
[2017-11-11] MEDS: [UNRECOGNIZED DRUG - OTHER] PO SCH (19:00)
[2017-11-12] MEDS: Meropenem 500 MG in Sodium Chloride 0.9% 100 ML IVPB SCH ×2 (00:20→11:18)
[2017-11-12 06:21] LABS: BASO % 0.7 % (0.0-2.0); EOS # 0.2 K/uL (0.0-0.7); EOS % 3.2 % (0.0-4.0); HEMOGLOBIN 11.6 g/dL (12.0-18.0); LYMPH # 1.1 K/uL (1.0-4.3); LYMPH % 18.5 % (20.0-40.0); MEAN CELL VOLUME 95.9 fL (80.0-94.0); MEAN CORPUSCULAR HEMOGLOBIN 33.3 pg (27.0-31.0); MEAN CORPUSCULAR HGB CONC 34.7 g/dL (33.0-37.0); MEAN PLATELET VOLUME 6.7 fL (7.2-11.7); MONO # 0.8 K/uL (0.0-0.8); MONO % 12.7 % (0.0-10.0); NEUT # 3.8 K/uL (1.8-7.0); NEUT % 64.9 % (50.0-75.0); RBC 3.47 Mil/uL (4.40-5.90); WHITE BLOOD COUNT 5.9 K/uL (4.8-10.8)
[2017-11-12 07:32] LABS: ALBUMIN 3.3 g/dL (3.5-5.0); ALT/SGPT 11 U/L (21-72); AST/SGOT 17 U/L (17-59); BILIRUBIN,DIRECT 0.4 mg/dL (0.0-0.4); BLOOD UREA NITROGEN 14 mg/dL (9-20); CALCIUM 8.6 mg/dl (8.6-10.4); GFR AFRICAN-AMERICAN > 60; GFR NON-AFRICAN AMERICAN > 60
[2017-11-12] MEDS: (Novolin R) Insulin Human Regular 100 units/ml vial SC SCH ×4 (08:23→21:45)
--- NOTE | 2017-11-12 08:28 | CP.PCM.PN ---
Subjective - Date & Time of Evaluation Date of Evaluation: 11/12/17 Time of Evaluation: 08:27 - Subjective Subjective: Mr. Aj was seen and examined at the bedside. He is awake and remains non- verbal. He is able to follow simple commands such as opening his eyes, squeezing his hand, and is dependent to others with his ADL's. He is able to maintain his wakefulness this am. He remains with left side weakness. Repeat CTH done yesterday showed minimally decreased hemorrhage in region of right frontal infarct which was previously demonstarted hemorrhagic conversion. There is no new infarct. Moderate to severe chronic white matter ischemic changes. Old bilateral basal ganglia thalamic and left cerebellar hemispheric lacunar infarcts.There was no untoward events overnight. Objective - Vital Signs/Intake and Output Vital Signs (last 24 hours): Temp Pulse Resp BP Pulse Ox 99.0 F 60 20 138/62 96 11/11/17 23:15 11/11/17 23:15 11/11/17 23:15 11/11/17 23:15 11/11/17 23:15 Intake and Output: 11/12/17 11/12/17 06:59 18:59 Intake Total 1200 Balance 1200 - Medications Medications: Current Medications Amantadine HCl (Symmetrel) 100 mg PO DAILY [facility] Last Admin: 11/11/17 12:43 Dose: 100 mg Apixaban (Eliquis) 5 mg PO BID [facility] Last Admin: 11/11/17 17:25 Dose: 5 mg Finasteride (Proscar) 5 mg PO DAILY [facility] Last Admin: 11/11/17 11:13 Dose: Not Given Gentamicin Sulfate (Gentamicin 0.1%) 0 gm TOP TID [facility] Last Admin: 11/11/17 19:00 Dose: 1 appl Home Med (Patient's Own Medication) 1 tab PO DAILY@1800 [facility] Stop: 12/01/17 18:01 Last Admin: 11/11/17 17:25 Dose: 1 tab Home Med (Patient's Own Medication) 1 tab PO DAILY@1800 [facility] Last Admin: 11/11/17 19:00 Dose: 1 tab Meropenem 500 mg/ Sodium (Chloride) 100 mls @ 100 mls/hr IVPB Q12H [facility] PRN Reason: Protocol Last Admin: 11/12/17 00:20 Dose: 100 mls/hr Insulin Human Regular (Novolin R) 0 unit SC ACHS [facility] PRN Reason: Protocol Last Admin: 11/12/17 08:23 Dose: 1 unit Raltegravir (Isentress) 400 mg PO BID [facility] PRN Reason: Protocol Last Admin: 11/11/17 19:00 Dose: 400 mg Tamsulosin HCl (Flomax) 0.4 mg PO DAILY [facility] Last Admin: 11/11/17 12:35 Dose: 0.4 mg Trimethoprim/Sulfamethoxazole (Bactrim Ss Tab) 1 tab PO MWF [facility] PRN Reason: Protocol Last Admin: 11/11/17 12:36 Dose: 1 tab - Labs Labs: 11/12/17 06:14 11/12/17 06:14 PT 20.0 SECONDS (9.7-12.2) H 11/05/17 10:14 INR 1.8 11/05/17 10:14 APTT 35 SECONDS (21-34) H 11/05/17 10:14 - Constitutional Appears: No Acute Distress - Head Exam Head Exam: ATRAUMATIC, NORMAL INSPECTION, NORMOCEPHALIC - Eye Exam Pupil Exam: PERRL - Neurological Exam Neurological Exam: Awake Neuro motor strength exam: Left Upper Extremity: 3, Right Upper Extremity: 4, Left Lower Extremity: 2/1, Right Lower Extremity: 4 Additional comments: Neurological improved from previous examination. He is more awake, responsive Assessment and Plan (1) History of CVA (cerebrovascular accident) Assessment & Plan: Case discussed with Dr. Menendez, continue all current medical regimen. Recommend head of bed elevated at least 30 degrees, hydration, blood pressure and glycemic control. Status: Acute
[2017-11-12] MEDS: GENTAMICIN 0.1% TOP SCH ×3 (10:24→17:35)
[2017-11-12] MEDS: Amantadine 50 mg/5 ml Syrup (473 ml) PO SCH (10:24)
--- NOTE | 2017-11-12 14:08 | CP.PCM.DIS ---
Provider - Provider Date of Admission: 11/05/17 12:39 Attending physician: Dave Sullivan MD Time Spent in preparation of Discharge (in minutes): 35 Hospital Course - Lab Results Lab Results: Micro Results 11/10/17 06:23 Blood-Venous Blood Culture - Preliminary NO GROWTH AFTER 48 HOURS 11/10/17 06:23 Blood-Venous Blood Culture - Preliminary NO GROWTH AFTER 48 HOURS 11/10/17 09:38 Urine,Clean Catch Urine Culture - Final No Growth (<1,000 CFU/ML) 11/05/17 10:30 Blood Blood Culture - Final NO GROWTH AFTER 5 DAYS 11/05/17 10:30 Blood Gram Stain - Final TEST NOT PERFORMED 11/06/17 Unknown Nose MRSA Culture - Final MRSA NOT DETECTED 11/05/17 10:00 Blood Blood Culture - Final Escherichia Coli 11/05/17 10:00 Blood Gram Stain - Final 11/05/17 11:18 Urine,[place] Urine Culture - Final Escherichia Coli 11/05/17 13:40 Naris MRSA Culture (Admit) - Final MRSA NOT DETECTED Most Recent Lab Values WBC 5.9 K/uL (4.8-10.8) 11/12/17 06:14 RBC 3.47 Mil/uL (4.40-5.90) L 11/12/17 06:14 Hgb 11.6 g/dL (12.0-18.0) L 11/12/17 06:14 Hct 33.3 % (35.0-51.0) L 11/12/17 06:14 MCV 95.9 fL (80.0-94.0) H 11/12/17 06:14 MCH 33.3 pg (27.0-31.0) H 11/12/17 06:14 MCHC 34.7 g/dL (33.0-37.0) 11/12/17 06:14 RDW 14.0 % (11.5-14.5) 11/12/17 06:14 Plt Count 310 K/uL (130-400) 11/12/17 06:14 MPV 6.7 fL (7.2-11.7) L 11/12/17 06:14 Neut % (Auto) 64.9 % (50.0-75.0) 11/12/17 06:14 Lymph % (Auto) 18.5 % (20.0-40.0) L 11/12/17 06:14 [place] % (Auto) 12.7 % (0.0-10.0) H 11/12/17 06:14 Eos % (Auto) 3.2 % (0.0-4.0) 11/12/17 06:14 Baso % (Auto) 0.7 % (0.0-2.0) 11/12/17 06:14 Neut # (Auto) 3.8 K/uL (1.8-7.0) 11/12/17 06:14 Lymph # (Auto) 1.1 K/uL (1.0-4.3) 11/12/17 06:14 [place] # (Auto) 0.8 K/uL (0.0-0.8) 11/12/17 06:14 Eos # (Auto) 0.2 K/uL (0.0-0.7) 11/12/17 06:14 Baso # (Auto) 0.0 K/uL (0.0-0.2) 11/12/17 06:14 Neutrophils % (Manual) 81 % (50-75) H 11/06/17 05:53 Lymphocytes % (Manual) 9 % (20-40) L 11/06/17 05:53 Monocytes % (Manual) 10 % (0-10) 11/06/17 05:53 Platelet Estimate Normal (NORMAL) 11/06/17 05:53 RBC Morphology Normal 11/05/17 10:14 Anisocytosis (manual) Slight 11/06/17 05:53 PT 20.0 SECONDS (9.7-12.2) H 11/05/17 10:14 INR 1.8 11/05/17 10:14 APTT 35 SECONDS (21-34) H 11/05/17 10:14 pO2 23 mm/Hg (30-55) L 11/05/17 10:58 VBG pH 7.34 (7.32-7.43) 11/05/17 10:58 VBG pCO2 47 mmHg (40-60) 11/05/17 10:58 VBG HCO3 22.6 mmol/L 11/05/17 10:58 VBG Total CO2 26.8 mmol/L (22-28) 11/05/17 10:58 VBG O2 Sat (Calc) 44.7 % (40-65) 11/05/17 10:58 VBG Base Excess -0.8 mmol/L (0.0-2.0) L 11/05/17 10:58 VBG Potassium 5.8 mmol/L (3.6-5.2) H 11/05/17 10:58 Sodium 136.0 mmol/l (132-148) 11/05/17 10:58 Chloride 104.0 mmol/L (98-107) 11/05/17 10:58 Glucose 171 mg/dl (75-110) H 11/05/17 10:58 Lactate 1.8 mmol/L (0.7-2.1) 11/05/17 10:58 Sodium 140 mmol/L (132-148) 11/12/17 06:14 Potassium 4.0 mmol/L (3.6-5.2) 11/12/17 06:14 Chloride 107 mmol/L (98-107) 11/12/17 06:14 Carbon Dioxide 25 mmol/L (22-30) 11/12/17 06:14 Anion Gap 13 (10-20) 11/12/17 06:14 BUN 14 mg/dL (9-20) 11/12/17 06:14 Creatinine 1.0 mg/dL (0.8-1.5) 11/12/17 06:14 Est GFR ( Amer) > 60 11/12/17 06:14 Est GFR (Non-Af Amer) > 60 11/12/17 06:14 POC Glucose (mg/dL) 230 mg/dL (65-110) H 11/12/17 11:40 Random Glucose 154 mg/dL (75-110) H 11/12/17 06:14 Calcium 8.6 mg/dl (8.6-10.4) 11/12/17 06:14 Phosphorus 2.7 mg/dL (2.5-4.5) 11/06/17 05:55 Magnesium 2.1 mg/dL (1.6-2.3) 11/06/17 05:55 Total Bilirubin 0.5 mg/dL (0.2-1.3) 11/12/17 06:14 Direct Bilirubin 0.4 mg/dL (0.0-0.4) 11/12/17 06:14 AST 17 U/L (17-59) D 11/12/17 06:14 ALT 11 U/L (21-72) L D 11/12/17 06:14 Alkaline Phosphatase 71 U/L (38-126) 11/12/17 06:14 Troponin I 0.1110 ng/mL (0.00-0.120) 11/05/17 10:14 NT-Pro-B Natriuret Pep 7450 pg/mL (0-900) H 11/05/17 10:14 Total Protein 6.7 g/dL (6.3-8.3) 11/12/17 06:14 Albumin 3.3 g/dL (3.5-5.0) L 11/12/17 06:14 Globulin 3.4 gm/dL (2.2-3.9) 11/12/17 06:14 Albumin/Globulin Ratio 1.0 (1.0-2.1) 11/12/17 06:14 Venous Blood Potassium 5.8 mmol/L (3.6-5.2) H 11/05/17 10:58 Urine Color Straw (YELLOW) 11/10/17 09:38 Urine Clarity Clear (Clear) 11/10/17 09:38 Urine pH 7.0 (5.0-8.0) 11/10/17 09:38 Ur Specific [place] 1.007 (1.003-1.030) 11/10/17 09:38 Urine Protein Negative mg/dL (NEGATIVE) 11/10/17 09:38 Urine Glucose (UA) 3+ mg/dL (Normal) H 11/10/17 09:38 Urine Ketones Negative mg/dL (NEGATIVE) 11/10/17 09:38 Urine Blood Negative (NEGATIVE) 11/10/17 09:38 Urine Nitrate Negative (NEGATIVE) 11/10/17 09:38 Urine Bilirubin Negative (NEGATIVE) 11/10/17 09:38 Urine Urobilinogen Normal mg/dL (0.2-1.0) 11/10/17 09:38 Ur Leukocyte Esterase Neg Neo/uL (Negative) 11/10/17 09:38 Urine WBC (Auto) 2 /hpf (0-5) 11/10/17 09:38 Urine RBC (Auto) 1 /hpf (0-3) 11/10/17 09:38 Urine WBC Clumps (Auto) Few /hpf (NONE) H 11/05/17 11:18 Ur Squamous Epith Cells < 1 /hpf (0-5) 11/10/17 09:38 Urine Bacteria Occ (<OCC) H 11/05/17 11:18 Random Vancomycin < 5.0 ug/mL 11/07/17 08:05 Urine Opiates Screen Negative (NEGATIVE) 11/05/17 11:18 Urine Methadone Screen Negative (NEGATIVE) 11/05/17 11:18 Ur Barbiturates Screen Negative (NEGATIVE) 11/05/17 11:18 Ur Phencyclidine Scrn Negative (NEGATIVE) 11/05/17 11:18 Ur Amphetamines Screen Negative (NEGATIVE) 11/05/17 11:18 U Benzodiazepines Scrn Negative (NEGATIVE) 11/05/17 11:18 U Oth Cocaine Metabols Negative (NEGATIVE) 11/05/17 11:18 U Cannabinoids Screen Negative (NEGATIVE) 11/05/17 11:18 Absolute Lymphs (Flow) 968 Cells/mcL (850-3900) 11/07/17 08:05 % CD4 Cells 23 Percent (30-61) L 11/07/17 08:05 Absolute CD4 Count 226 Cells/mcL (490-1740) L 11/07/17 08:05 T-Help/Suppress Ratio 0.56 Ratio (0.86-5.00) L 11/07/17 08:05 % CD8 Cells 42 Percent (12-42) 11/07/17 08:05 Absolute CD8 Count 403 Cells/mcL (180-1170) 11/07/17 08:05 HIV-1 RNA Qnt (RT-PCR) 1.82 (Not Detected) H 11/07/17 08:05 - Hospital Course Hospital Course: Patient is admitted from [place] with altered mental status progressing from the previous day. Patient was admitted on the beginning part of this month in [facility] with stroke involving the right frontal lobe with weakness on the left side. Patient did not have major recovery during the hospitalization. As per the neurology evaluation last admission prior to discharge patient was still minimally responsive to verbal stimuli and no movement on the left side of the body. In the senior living patient was found to be more unresponsive and was brought to [facility] ER. In the ER the CAT scan showed now hemorrhagic old infarct in the right frontal lobe with no progression in the size of the infarct suggesting no new infarct. During the last admission patient was found to have atrial fibrillation and was given to anticoagulation. Plavix and Eliquis. Patient also had IV Myoview Lexiscan which showed mild ischemia in the distal LAD territory with normal left medical ejection fraction. Patient also has a history of HIV and was treated by ID on IV antibiotics. Patient was IV fluconazole in the senior living. Patient was admitted on the floor. Patient was put on neuro check. Neurology consult was obtained. Their opinion was patient does not have any traumatic subdural but it is changes from the previous stroke. A repeat CAT scan was done which showed resolving subdural. Patient was given Eliquis 5 mg by mouth twice a day for his atrial fibrillation with no any evidence of further bleeding. Patient's urine culture and blood culture both came out positive for E. coli. ID consult was obtained and patient was put on IV meropenem. On IV antibiotics 3-4 days later patient's urine culture and blood cultures were negative patient's mental condition improved but had periods of waxing and waning of mental status. There was no further input from neurology but to continue the present medication. Patient is now stable to be transferred back to rehab to continue IV antibiotics and other physical therapy. Probably patient's change of mental status was secondary to sepsis. Discharge Exam - Head Exam Head Exam: ATRAUMATIC, NORMAL INSPECTION, NORMOCEPHALIC Discharge Plan - Discharge Medications Prescriptions: Emtricitabine/Tenofov Alafenam [Descovy 200-25 mg Tablet] 1 each PO DAILY #30 tablet Raltegravir Potassium [Isentress] 400 mg PO BID #60 tab - Follow Up Plan Condition: GUARDED Disposition: HOME/ ROUTINE
--- NOTE | 2017-11-12 15:38 | CP.PCM.PN ---
Subjective - Date & Time of Evaluation Date of Evaluation: 11/12/17 Time of Evaluation: 15:38 - Subjective Subjective: -FOLLOW UP WITH DR. FUNG WHILE AT [facility]---CALL UPON ARRIVAL FOR ADMITTING ORDERS. -PLEASE ENSURE A FOLLOW UP APPOINTMENT WITH DR. DANG/DR. WINN (NEUROLOGY GROUP) IN THE OFFICE WITHIN 1-2 WEEKS. -CONTINUE MEDICATIONS PER THE MED REC FORM---CHANGES CAN BE MADE BY DR. FUNG IF NEEDED. RESUMING METOPROLOL WILL BE AT THE DISCRETION OF DR. FUNG, CONSIDERING PERIODS OF BRADYCARDIA (LOW HEART RATE/PULSE). -PLEASE KEEP HEAD OF BED ELEVATED. -ASPIRATION PRECAUTIONS PER FACILITY PROTOCOL. -PLEASE HAVE MR. CONNOR FED EACH MEAL SLOWLY TO PREVENT RISK OF ASPIRATION. PLEASE ALLOW FOR MR. CONNOR TO SWALLOW ALL FOOD. -ACCORDING TO DR. OVALLES (INFECTION DOCTOR), CONTINUE THE FOLLOWING ANTIBIOTICS: CIPRO 500 MG (1 TABLET) BY MOUTH TWICE A DAY (MORNING AND EVENING) FOR 7 DAYS (START ON 11/13/17 AND LAST DAY TO BE GIVEN ON 11/20/17). -PHYSICAL THERAPY TOLERATED. Objective - Vital Signs/Intake and Output Vital Signs (last 24 hours): Temp Pulse Resp BP Pulse Ox 97.8 F 60 18 146/9 L 96 11/12/17 08:37 11/12/17 08:37 11/12/17 08:37 11/12/17 08:37 11/12/17 08:37 Intake and Output: 11/12/17 11/12/17 06:59 18:59 Intake Total 1200 Balance 1200 - Medications Medications: Current Medications Amantadine HCl (Symmetrel) 100 mg PO DAILY [facility] Last Admin: 11/12/17 10:24 Dose: 100 mg Apixaban (Eliquis) 5 mg PO BID [facility] Last Admin: 11/12/17 10:23 Dose: 5 mg Finasteride (Proscar) 5 mg PO DAILY [facility] Last Admin: 11/12/17 10:23 Dose: 5 mg Gentamicin Sulfate (Gentamicin 0.1%) 0 gm TOP TID [facility] Last Admin: 11/12/17 13:35 Dose: 1 appl Home Med (Patient's Own Medication) 1 tab PO DAILY@1800 [facility] Stop: 12/01/17 18:01 Last Admin: 11/11/17 17:25 Dose: 1 tab Home Med (Patient's Own Medication) 1 tab PO DAILY@1800 [facility] Last Admin: 11/11/17 19:00 Dose: 1 tab Meropenem 500 mg/ Sodium (Chloride) 100 mls @ 100 mls/hr IVPB Q12H [facility] PRN Reason: Protocol Last Admin: 11/12/17 11:18 Dose: 100 mls/hr Insulin Human Regular (Novolin R) 0 unit SC ACHS [facility] PRN Reason: Protocol Last Admin: 11/12/17 12:01 Dose: 2 unit Raltegravir (Isentress) 400 mg PO BID [facility] PRN Reason: Protocol Last Admin: 11/12/17 10:23 Dose: 400 mg Tamsulosin HCl (Flomax) 0.4 mg PO DAILY [facility] Last Admin: 11/12/17 10:23 Dose: 0.4 mg Trimethoprim/Sulfamethoxazole (Bactrim Ss Tab) 1 tab PO MWF [facility] PRN Reason: Protocol Last Admin: 11/11/17 12:36 Dose: 1 tab - Labs Labs: 11/12/17 06:14 11/12/17 06:14 PT 20.0 SECONDS (9.7-12.2) H 11/05/17 10:14 INR 1.8 11/05/17 10:14 APTT 35 SECONDS (21-34) H 11/05/17 10:14
[2017-11-12 17:34] VITALS: BP 162/71; RESP 20; TEMP 97.5; O2SAT 98
[2017-11-12] MEDS: [UNRECOGNIZED DRUG - OTHER] PO SCH (17:41)
[2017-11-12] MEDS: DESCOVY PO SCH (17:41)
== END 2017-11-12 22:47 | DRG 871 ==
LOC: C.ER 09:53 → C.9E 12:39 → C.9I 13:02 → C.6T 11-06 22:19
PROVIDERS: ADMIT Internal Medicine Cardiovascular Disease; ATTEND Internal Medicine Cardiovascular Disease
DX: A41.51 Sepsis due to Escherichia coli [E. coli] (principal); G93.41 Metabolic encephalopathy; G40.209 Localization-related (focal) (partial) symptomatic epilepsy and epileptic syndromes with complex partial seizures, not intractable, without status epilepticus; N39.0 Urinary tract infection, site not specified; R47.01 Aphasia; R65.20 Severe sepsis without septic shock; Z21 Asymptomatic human immunodeficiency virus [HIV] infection status; I69.392 Facial weakness following cerebral infarction; E11.9 Type 2 diabetes mellitus without complications; I10 Essential (primary) hypertension; I25.10 Atherosclerotic heart disease of native coronary artery without angina pectoris; I48.91 Unspecified atrial fibrillation; I35.0 Nonrheumatic aortic (valve) stenosis; Z79.01 Long term (current) use of anticoagulants; J45.909 Unspecified asthma, uncomplicated; J34.2 Deviated nasal septum; Z79.4 Long term (current) use of insulin